=== PATIENT | female | born 1950 | race Caucasian/White ===

== ENCOUNTER 2017-05-17 17:44 | Emergency (ER) | payer MEDICARE, OTHER, SELFPAY ==
[2017-05-17 17:47] VITALS: BP 142/95; PULSE 117; RESP 24; TEMP 37.2; O2SAT 96; BMI 20.5
[2017-05-17 20:07] VITALS: BP 138/72; PULSE 87; RESP 18; O2SAT 95
[2017-05-17 20:53] LABS: Anion Gap 13 (5-15); BUN 4 mg/dL (7-18); BUN/Creat Ratio 10.1 RATIO (10-20); Chloride 95 mmol/L (98-107); EST Glomerular Filtration Rate 171 mL/min (>60); Est Glom Filt Rate - Afr Amer 207 mL/min (>60); Estimated Creatinine Clearance 43.77 ml/min; Glucose 88 mg/dL (74-106); Potassium 5.2 mmol/L (3.5-5.1); Sodium Level 129 mmol/L (136-145)
[2017-05-17 21:05] LABS: Absolute Lymphocyte Count 1.88 X10^3/ul (0.83-4.51); Basophil# 0.02 X10^3/uL; Basophil% 0.3 % (0-1); Eosinophil# 0.08 X10^3/uL; Eosinophils% 1.2 % (0-5); Hematocrit 42.8 % (37-47); Hemoglobin 15.1 g/dl (12.0-15.0); Lymphocyte # 1.88 X10^3/ul (4.0); Lymphocyte % 27.8 % (19-41); Mean Corp Hgb Conc 35.3 g/gl (32-36); Mean Corpuscular Hgb 37.7 pg (27.0-32.0); Mean Corpuscular Volume 106.7 fL (81-99); Mean Platelet Vol. 9.5 fl (6.2-12.0); Monocyte# 0.73 X10^3/uL; Monocyte% 10.8 % (0-10); Neutrophil # 4.02 X10^3/uL (2.7-7.7); Neutrophil % 59.5 % (47-70); Platelet Count 163 K/mm3 (150-450); RBC Distribution Width CV 14.3 % (11.6-14.6); RBC Distribution Width SD 55.6 fl (35.1-43.9); Red Blood Count 4.01 M/mm3 (4.2-5.4); White Blood Count 6.8 K/mm3 (4.4-11.0)
[2017-05-17 21:09] LABS: POSITIVE COUNT NO; POSITIVE DIFFERENTIAL NO; POSITIVE MORPHOLOGY NO
[2017-05-17] MEDS: 0.9% Normal Saline 1,000 ML 1000 ML IV (21:58)
--- NOTE | 2017-05-17 22:47 | ED.DCSUM_ITS ---
- ER Visit Summary Date of Service: 05/17/17 Chief Complaint: Anxiety History of Present Illness: The patient is a 66 F presenting with anxiety. She states for the past 10-12 days she has had trouble sleeping. She has been drinking alcohol in order to get to sleep. She states that she has been drinking 6 beers per day. She drinks on a daily basis but does not typically drink 6 beers per day. She states she has never been through alcohol withdrawal and has no history of seizures. She states she has not been eating well. She states she is very anxious after quitting her job in March. She states she is anxious about getting older. She denies suicidal ideation. She smokes. Denies drug use. Physical Examination: Vitals are stable. Patient is afebrile. Alert no acute distress. HEENT exam is unremarkable. Neck is supple. Lungs are clear and equal bilaterally. Heart is regular rate and rhythm. Abdomen is soft nontender nondistended. Extremities are unremarkable. Skin is warm and dry. No focal neurologic deficit. Anxious, no suicidal ideation Remainder of exam is unremarkable. Emergency Department Course and Treatment: CBC is normal. Chemistries normal except for sodium 129. Alcohol is 96. Patient was given IV fluids. She declines any further treatment in the emergency department. She was given a prescription for Vistaril. She is advised to follow-up with Dr. Peterson her primary care physician. She continues to deny any suicidal ideation. She will be discharged with her family. She states that she does not want detox at this time. Advised to return to the ED for worsening complaints. Disposition: Discharge home Impression: Anxiety, alcohol intoxication This note was generated with [employer] dictation software. It may contain incorrect words, spelling, and punctuation that were not noted in review of the chart prior to signing ED Disposition - Plan for ED Patient: Chief Complaint: Anxiety Referrals: Jose Peterson MD [Primary Care Provider] -
--- NOTE | 2017-05-17 22:47 | ED.DEP ---
ED Disposition - Plan for ED Patient: Chief Complaint: Anxiety Instructions: ED Insomnia, Understanding Generalized Anxiety Disorder (MELINDA) Prescriptions: HydrOXYzine TREVIN [Vistaril] 25 mg PO TID PRN PRN #10 capsule PRN Reason: Anxiety Referrals: Jose Peterson MD [Primary Care Provider] -
[2017-05-17 22:59] VITALS: PULSE 110; RESP 16; O2SAT 99
== END 2017-05-17 23:01 | disposition home or self-care (01) ==
LOC: ED 20:40
PROVIDERS: Emergency Provider Emergency Medicine; Family Provider Family Medicine; PCP Family Medicine
DX: F41.9 Anxiety disorder, unspecified (principal); F10.129 Alcohol abuse with intoxication, unspecified; Y90.4 Blood alcohol level of 80-99 mg/100 ml; F17.200 Nicotine dependence, unspecified, uncomplicated
CPT/HCPCS: 80048; 80320; 85025; 96360; 99285; J7030; A4216; G0480

== ENCOUNTER 2017-07-23 19:02 | Inpatient (IN) | payer MEDICARE, OTHER, SELFPAY ==
[2017-07-23] VITALS (8 sets, daily range): BP systolic 152–191; BP diastolic 86–97; PULSE 98–114; RESP 18–23; TEMP 36.7–36.8; O2SAT 94–98; BMI 20.1
--- NOTE | 2017-07-23 19:10 | ED.RN ---
PER PT SHE TAKES NO MEDICATION, PER PT SON DENIA SHE IS SUPPOSE TO TAKE MEDICATIONS BUT DOES NOT
--- NOTE | 2017-07-23 19:13 | CT_ITS ---
STUDY: CT BRAIN WITHOUT CONTRAST REASON FOR EXAM: Female, 67 years old. FALL, DENIES NECK PAIN RADIATION DOSAGE (If Supplied By Facility): CTDIvol = ( 44.99 ) mGy, DLP = ( 829.85 ) mGycm TECHNIQUE: Transaxial CT imaging of the brain was performed without administration of intravenous contrast material. COMPARISON: 2.16 FINDINGS: Normal soft tissue structures. Normal calvarium. There are calcifications around the carotid artery. These are noted in the cavernous carotid arteries. There is mild cerebral atrophy with widening of the extra-axial spaces and ventricular dilatation. There are areas of decreased attenuation within the white matter tracts of the supratentorial brain, consistent with microvascular disease changes. Normal basal ganglia and thalami. Normal brainstem. There is mild cerebellar atrophy. There is no intracranial hemorrhage. There are no findings of an acute ischemic infarction. Normal visualized paranasal sinuses. CT/Brain/Head without Contrast IMPRESSION: Chronic involutional changes of the brain. There are no acute findings. Electronically Signed: Zane Bowser MD at 20:23 EDT , Service support ,
--- NOTE | 2017-07-23 19:14 | CT_ITS ---
EXAM: CT SPINE - CERVICAL WITHOUT IV REASON FOR EXAM: Female, 67 years old. FALL, DENIES NECK PAIN RADIATION DOSAGE (If Supplied By Facility): CTDIvol = ( 19.65 ) mGy, DLP = ( 396.27 ) mGycm TECHNIQUE: Multiplanar images were obtained of the cervical spine. IV contrast was not utilized. COMPARISON: None. FINDINGS: The vertebral bodies do maintain their height. The odontoid process is intact. There is no anterolisthesis or fracture. No pre-vertebral soft tissue swelling is seen. The intravertebral disc height is lost. There are scattered lymph nodes in the neck. There are degenerative changes of the osseous structures. There is bilateral facet arthropathy. There are scattered levels of foraminal stenosis. There are atherosclerotic vascular calcifications. CT/Spine Cervical without Contras IMPRESSION: Degenerative changes of the cervical spine. No acute abnormality of the spine. Electronically Signed: Zane Bowser MD at 20:21 EDT , Service support ,
--- NOTE | 2017-07-23 19:16 | ED.VISSUMM ---
- ER Visit Summary Date of Service: 07/23/17 Chief Complaint: Fall and right hip pain History of Present Illness: The patient is a 67 F who does not remember her primary care physician's name. She reports that approximately 430 this afternoon she stood up off the toilet was very lightheaded and fell. She denies any loss of consciousness. She reports that she has pain in her right hip that is 10 out of 10 in severity. She denies any neck, back, shoulder, wrist, or left hip pain. Denies any paresthesias. Physical Examination: Vitals: Stable. Afebrile. General: Unkempt. Neck: No vertebral tenderness. Full ROM without difficulty. Cleared by NEXUS criteria. Back: No vertebral tenderness. General: A&O x 3. NAD. Cardiovascular exam: Regular rate and rhythm, no murmur, rub or gallop. Respiratory exam: Chest nontender. No crepitus. Clear to auscultation bilaterally. No wheezes or stridor. Abdominal exam: Soft, nontender, nondistended, normal bowel sounds. No pain in RUQ or LUQ specifically. No peritoneal signs. Extremity: Severe pain with palpation of her right greater trochanter. Pain with any range of motion of her leg. Test Results: G is sinus at [address] changes. However, she has T-wave inversions in leads V4 to V6 that are a change from April 2015. Alcohol level was 56. CPK is 37. Chem-7 is more for potassium at 2.9, BUN of 5, creatinine 0.35. CBC is marked for 7 neutrophils 74 lymphs lites of 18. Right hip x-ray shows an intertrochanteric fracture. Chest x-ray shows cardiomegaly and chronic changes. CT brain shows no acute disease. CT C-spine shows degenerative changes and no acute disease. Emergency Department Course and Treatment: Patient had an IV placed. She was given morphine and Phenergan IV. Patient continued to complain of pain. She was given dose of Dilaudid IV. She is given K-Dur p.o. Treatment Plan: The patient was discussed with Dr. Leonard and Dr. Gifford. She will be admitted to the hospital for further evaluation and treatment. Disposition: Admitted in improved condition. Impression: 1. Right hip fracture. 2. Hypokalemia. 3. Alcoholism. This note was generated with Dragon dictation software. It may contain incorrect words, spelling, and punctuation that were not noted in review of the chart prior to signing ED Disposition - Plan for ED Patient: Chief Complaint: Fall Referrals: Jose Peterson MD [Primary Care Provider] -
[2017-07-23] MEDS: proMETHazine 25 MG/ML Syringe 6.25 MG IV (19:27)
[2017-07-23] MEDS: Morphine 4 MG/ML Syringe IV (19:29)
[2017-07-23] MEDS: 0.9% Normal Saline 1,000 ML 1000 ML IV (19:37)
[2017-07-23 19:40] LABS: Absolute Lymphocyte Count 1.65 X10^3/ul (0.83-4.51); Absolute Neutrophil Count 6.7 X10^3/uL (2.0-7.7); Basophil# 0.02 X10^3/uL; Basophil% 0.2 % (0-1); Eosinophil# 0.03 X10^3/uL; Eosinophils% 0.3 % (0-5); Hematocrit 39.1 % (37-47); Hemoglobin 13.3 g/dl (12.0-15.0); Lymphocyte # 1.65 X10^3/ul (4.0); Lymphocyte % 18.1 % (19-41); Mean Corpuscular Hgb 38.9 pg (27.0-32.0); Mean Corpuscular Volume 114.3 fL (81-99); Mean Platelet Vol. 9.5 fl (6.2-12.0); Monocyte# 0.69 X10^3/uL; Monocyte% 7.6 % (0-10); Neutrophil # 6.69 X10^3/uL (2.7-7.7); Neutrophil % 73.5 % (47-70); Platelet Count 225 K/mm3 (150-450); RBC Distribution Width CV 13.7 % (11.6-14.6); RBC Distribution Width SD 57.2 fl (35.1-43.9); Red Blood Count 3.42 M/mm3 (4.2-5.4); White Blood Count 9.1 K/mm3 (4.4-11.0)
[2017-07-23 19:43] LABS: POSITIVE COUNT NO; POSITIVE DIFFERENTIAL NO; POSITIVE MORPHOLOGY NO
[2017-07-23 19:55] LABS: Anion Gap 9 (5-15); BUN 5 mg/dL (7-18); BUN/Creat Ratio 14.4 RATIO (10-20); Calcium,Total 8.5 mg/dL (8.5-10.1); Chloride 104 mmol/L (98-107); Creatinine, Serum 0.35 mg/dL (0.55-1.02); EST Glomerular Filtration Rate 199 mL/min (>60); Est Glom Filt Rate - Afr Amer 240 mL/min (>60); Glucose 104 mg/dL (74-106); Potassium 2.9 mmol/L (3.5-5.1); Sodium Level 137 mmol/L (136-145)
--- NOTE | 2017-07-23 20:00 | RAD_ITS ---
STUDY: X-RAY - PELVIS AND RIGHT HIP REASON FOR EXAM: Female, 67 years old. PATIENT FELL. PAIN ENTIRE RIGHT HIP. TECHNIQUE: Radiological exam, hip, unilateral, with pelvis when performed; 2 or 3 views. COMPARISON: None. FINDINGS: There is a non-specific bowel gas pattern. Normal visualized soft tissue structures. Degenerative findings of the hips. Normal bilateral iliac wings, sacroiliac joints and visualized sacrum. Normal bilateral superior and inferior pubic rami. Normal pubic symphysis. Normal bilateral ischial tuberosities. There are atherosclerotic vascular calcifications. Comminuted slightly impacted right intertrochanteric fracture. There is no dislocation. There is osteoarthritic spur formation of the acetabular rim. There is mild articular joint space narrowing of the hip. RAD/Hip 2-3 Views with Pelvis IMPRESSION: Comminuted slightly impacted right intertrochanteric fracture. Electronically Signed: Zane Bowser MD at 20:44 EDT , Service support ,
--- NOTE | 2017-07-23 20:02 | RAD_ITS ---
STUDY: X-RAY CHEST REASON FOR EXAM: Female, 67 years old. PATIENT FELL. PAIN ENTIRE RIGHT HIP. TECHNIQUE: Single frontal view of the chest. COMPARISON: 2 FINDINGS: Chronic appearing increased interstitial lung markings. There is an infiltrate in the right mid lung suggestive of a focal pneumonia. There is no demonstrated pleural abnormality. Enlarged heart size. Normal mediastinum and kylee. Normal visualized pulmonary arteries. There is atherosclerotic calcification of the aortic arch with tortuosity. There are diffuse degenerative changes of the visualized thoracic spine. There is degenerative osteoarthritis of the bilateral shoulders. There is no demonstrated abnormality of the visualized soft tissue structures of the upper abdomen. RAD/Chest 1 View (Portable) IMPRESSION: There is an infiltrate in the right mid lung suggestive of a focal pneumonia. Electronically Signed: Zane Bowser MD at 20:46 EDT , Service support ,
[2017-07-23 20:06] LABS: CPK Total, Creatine Kinase 37 U/L (26-192)
[2017-07-23] MEDS: HYDROmorphone 1 MG/ML Syringe IV (20:16)
--- NOTE | 2017-07-23 20:39 | EKG12_ITS ---
Test Reason : ADMIT Blood Pressure : / mmHG Vent. Rate : 099 BPM Atrial Rate : 099 BPM P-R Int : 110 ms QRS Dur : 086 ms QT Int : 346 ms P-R-T Axes : 000 032 246 degrees QTc Int : 444 ms Sinus rhythm with short CA Septal infarct ,age undetermined ST & T wave abnormality, consider lateral ischemia Abnormal ECG Confirmed by MAYKEL SHELTON, BERENICE ([id number]), index editor AYAAN ROBBINS ([id number]) on 07/26/2017 2:05:14 PM Referred By: CHARISSE Confirmed By:BERENICE BRAR MD
--- NOTE | 2017-07-23 20:41 | PCM.HP.STD ---
Problem List (1) Closed right hip fracture Status: Acute (2) CHRONIC ALCOHOL USE DEPENDENCE Status: Acute (3) Alcoholic hepatitis Status: Chronic (4) TIA (transient ischemic attack) Status: Resolved (5) Acute on recurrent fall Status: Acute History of Present Illness Date of Admission: 07/23/17 Chief Complaint: Patient fell down and right hip fracture The patient is a 67 year old F with chronic alcohol use since teenage, about 3 bottles of beer daily, coronary artery disease status post 1 stents, last one in 2010 came to ER after she fell down. As per the son, she tried to stood up from the toilet felt very lightheaded and fell down. She felt severe pain over right hip and was not able to move. She denies any neck, back pain or hitting head. She denies loss of consciousness. Patient also has a history of recurrent fall and falls about once in 3 months. She denies history of alcohol-related withdrawal symptoms during seizure and said she can remain 10 days without alcohol and does not get alcohol withdrawal symptoms. In ED, her initial assessment was consistent with right hip fracture which later on revealed in right hip fracture showing intertrochanteric fracture. CT head and C-spine does not show acute change. EKG shows sinus rhythm T-wave inversion in V2 to V4 with old septal infarct. Previous EKG in 04/2015 did not had T-wave inversion. Patient denies chest pain, shortness of breath or palpitation. Initial lab work in ER was significant of K2.9. Alcohol level 56. [] Past Medical History Past Medical History (Chronic Problems): Chronic Problems Alcoholic hepatitis (Chronic) Alcohol abuse (Chronic) CAD (coronary artery disease) (Chronic) Status post stent Allergies No Known Allergies Allergy (Verified 07/23/17 19:08) Home Medications: Ambulatory Orders Medication Instructions Recorded NK [NK] 07/23/17 Surgical History: hysterectomy, - - cad with stent Smoking Status: Current every day smoker - *Family History Maternal History Items: - - does not know Paternal History Items: - - does not know Review of Systems Constitutional: Reports: Weakness. Denies: Chills, Fever, Weight Change HEENT: Denies: Head Aches, Sinus Congestion, Sinus Drainage Cardiovascular: Denies: Chest Pain, Palpitations Respiratory: Denies: Cough, Shortness of breath at rest, Sputum production Gastrointestinal: Denies: Abdominal Pain, Nausea, Vomiting Genitourinary: Denies: Dysuria Musculoskeletal: Reports: Joint Pain, Joint stiffness, Joint swelling, Joint Tenderness Skin: Denies: Rash, Wounds Neurological: Denies: Numbness, Tingling, Focal weakness Psychiatric: Reports: Anxiety. Denies: Depression, Homicidal Ideations, Suicidal Ideations Hematologic/ Lymphatic: Denies: Easy Bruising, Easy Bleeding VTE Information - Inpt Only VTE Present on Admission: No VTE Mechan Device Prophylaxis: Knee High JUANCARLOS Hose VTE Pharm Prophylaxis ordered?: Yes Patient Problems: Active and Suspected Problems Closed right hip fracture (Acute) CHRONIC ALCOHOL USE DEPENDENCE (Acute) Acute on recurrent fall (Acute) - Physical Exam General: Alert, Oriented x3, Cooperative, Lethargic HEENT: Atraumatic, PERRLA, EOMI, Normocephalic Oral: Dry Mucosa, - - No oral or pharyngeal inflammation/erythema Neck: Supple, No JVD, Negative Carotid Bruits Lungs: Clear to auscultation, Normal air movement, No rhonchi, No wheeze, No rales Cardiovascular: Regular rate, Regular Rhythm, Normal S1, Normal S2, No murmurs Abdomen: Bowel Sounds Present, Soft, Non Tender, Hepatomegaly - Liver enlarged about 2 cm from right subcostal margin, Tender - Mild tender hepatomegaly Extremities: No edema, Capillary Refill Less than 3 Seconds Skin: No rashes, No breakdown Musculoskeletal: Arthritic Changes, Tenderness - Over right hip joint Right lower extremity is flexed and externally rotated Neurological: Cranial nerves II-XII grossly intact Psych/Mental Status: Normal Affect, Appropriate Vital Signs Temp Pulse Resp BP Pulse Ox 98.1 F 102 H 23 H 175/97 H 94 07/23/17 19:04 07/23/17 20:19 07/23/17 20:19 07/23/17 20:19 07/23/17 20:19 Oxygen Delivery Method Room Air Weight: 110 lb Body Mass Index (BMI) 20.1 Finger Stick Blood Glucose 95 Laboratory Tests Past 24 Hrs 07/23/17 07/23/17 07/23/17 19:30 19:30 19:30 WBC 9.1 RBC 3.42 L Hgb 13.3 Hct 39.1 MCV 114.3 H MCH 38.9 H MCHC 34.0 RDW 13.7 RDW Differential 57.2 H Plt Count 225 MPV 9.5 Immature Gran % (Auto) 0.300 Neut % (Auto) 73.5 H Lymph % (Auto) 18.1 L Waldo % (Auto) 7.6 Eos % (Auto) 0.3 Baso % (Auto) 0.2 Absolute Neuts (auto) 6.7 Absolute Lymphs (auto) 1.65 Total Counted Not Reportable Sodium 137 Potassium 2.9 L Chloride 104 Carbon Dioxide 24.0 Anion Gap 9 BUN 5 L Creatinine 0.35 L Estim Creat Clear Calc 43.00 Est GFR (MDRD) Af Amer 240 Est GFR (MDRD) Non-Af 199 BUN/Creatinine Ratio 14.4 Glucose 104 Calcium 8.5 Total Creatine Kinase Ethyl Alcohol 56.0 07/23/17 19:30 WBC RBC Hgb Hct MCV MCH MCHC RDW RDW Differential Plt Count MPV Immature Gran % (Auto) Neut % (Auto) Lymph % (Auto) Waldo % (Auto) Eos % (Auto) Baso % (Auto) Absolute Neuts (auto) Absolute Lymphs (auto) Total Counted Sodium Potassium Chloride Carbon Dioxide Anion Gap BUN Creatinine Estim Creat Clear Calc Est GFR (MDRD) Af Amer Est GFR (MDRD) Non-Af BUN/Creatinine Ratio Glucose Calcium Total Creatine Kinase 37 Ethyl Alcohol Assessment/Plan Active and Suspected Problems Closed right hip fracture (Acute) CHRONIC ALCOHOL USE DEPENDENCE (Acute) Acute on recurrent fall (Acute) The patient is a 67 year old F with chronic alcohol use since teenage, about 3 bottles of beer daily, coronary artery disease status post 1 stents, last one in 2010 came to ER after she fell down. As per the son, she tried to stood up from the toilet felt very lightheaded and fell down. She felt severe pain over right hip and was not able to move. She denies any neck, back pain or hitting head. She denies loss of consciousness. Patient also has a history of recurrent fall and falls about once in 3 months. She denies history of alcohol-related withdrawal symptoms during seizure and said she can remain 10 days without alcohol and does not get alcohol withdrawal symptoms. In ED, her initial assessment was consistent with right hip fracture which later on revealed in right hip fracture showing intertrochanteric fracture. CT head and C-spine does not show acute change. EKG shows sinus rhythm at 99 bpm T-wave inversion in V2 to V4 with old septal infarct. Previous EKG in 04/2015 did not had T-wave inversion. Patient denies chest pain, shortness of breath or palpitation. Initial lab work in ER was significant of K2.9. Alcohol level 56. [ 1. Acute on recurrent fall resulting into mechanical right hip closed comminuted slightly impacted intertrochanteric fracture: The patient is being admitted on PCU floor because of T-wave inversion changes in EKG. ER physician Dr. Castanon discussed with Dr. Gifford who agreed to see the patient tomorrow. Pain control. Right hip x-ray shows comminuted slightly impacted right intertrochanteric fracture. 2. EKG changes with history of coronary artery disease status post stent in 2010: As mentioned above T-wave inversion in lateral leads. Serial cardiac enzymes. 2D echo ordered. Last echo in April 2015 shows segmental dysfunction with preserved EF, 55%; hypokinetic posterior basal, inferior basal mid inferior and mid lateral. Normal RV size and systolic function. Normal LA. Right atrium mildly enlarged. No significant valvular abnormality set mild diffuse mitral valve thickening and trivial MR. patient is not on any home medication. Started on aspirin, metoprolol, lisinopril and a statin. 3. Chronic alcohol use with possible alcoholic hepatitis: Mild tender hepatomegaly about 2 cm below right costal margin. LFT ordered. Viral hepatitis ordered. Alcohol level elevated. On multivitamin, folic acid and thiamine. On Ativan based CIWA protocol 4. Other chronic comorbidities include hypertension, history of TIA for which she was admitted in April 2015. Blood pressure is high 191/96 in ER. Heart rate 104/min. Started on lisinopril DVT prophylaxis: On heparin 500 subcu units twice daily. Hold heparin prior to surgery. Bilateral JUANCARLOS hose. Laboratory Results 07/23/17 19:30: WBC 9.1, RBC 3.42 L, Hgb 13.3, Hct 39.1, MCV 114.3 H, MCH 38.9 H, MCHC 34.0, RDW 13.7, RDW Differential 57.2 H, Plt Count 225, MPV 9.5, Immature Gran % (Auto) 0.300, Neut % (Auto) 73.5 H, Lymph % (Auto) 18.1 L, Waldo % (Auto) 7.6, Eos % (Auto) 0.3, Baso % (Auto) 0.2, Absolute Neuts (auto) 6.7, Absolute Lymphs (auto) 1.65, Total Counted Not Reportable 07/23/17 19:30: Sodium 137, Potassium 2.9 L, Chloride 104, Carbon Dioxide 24.0, Anion Gap 9, BUN 5 L, Creatinine 0.35 L, Estim Creat Clear Calc 43.00, Est GFR (MDRD) Af Amer 240, Est GFR (MDRD) Non-Af 199, BUN/Creatinine Ratio 14.4, Glucose 104, Calcium 8.5 07/23/17 19:30: Ethyl Alcohol 56.0 07/23/17 19:30: Total Creatine Kinase 37 Clinical Impression(s) from Imaging Studies Brain CT 07/23/17 19:13 IMPRESSION: Chronic involutional changes of the brain. There are no acute findings. Electronically Signed: Zane Bowser MD at 20:23 EDT , Service support , Cervical Spine CT 07/23/17 19:14 IMPRESSION: Degenerative changes of the cervical spine. No acute abnormality of the spine. Electronically Signed: Zane Bowser MD at 20:21 EDT , Service support , Hip/Pelvis X-Ray 07/23/17 20:00 IMPRESSION: Comminuted slightly impacted right intertrochanteric fracture. Electronically Signed: Zane Bowser MD at 20:44 EDT , Service support , Chest X-Ray 07/23/17 20:02 IMPRESSION: There is an infiltrate in the right mid lung suggestive of a focal pneumonia. Electronically Signed: Zane Bowser MD at 20:46 EDT , Service support , Total time spent in the care including review of medical records, labs and assessment and plan and discussion with the patient and his son about 50 minutes Code Visit Inpatient E&M: 02799 Init Hosp L3
--- NOTE | 2017-07-23 20:51 | HP.PCM_ITS ---
Problem List (1) Closed right hip fracture Status: Acute (2) CHRONIC ALCOHOL USE DEPENDENCE Status: Acute (3) Alcoholic hepatitis Status: Chronic (4) TIA (transient ischemic attack) Status: Resolved (5) Acute on recurrent fall Status: Acute History of Present Illness Date of Admission: 07/23/17 Chief Complaint: Patient fell down and right hip fracture The patient is a 67 year old F with chronic alcohol use since teenage, about 3 bottles of beer daily, coronary artery disease status post 1 stents, last one in 2010 came to ER after she fell down. As per the son, she tried to stood up from the toilet felt very lightheaded and fell down. She felt severe pain over right hip and was not able to move. She denies any neck, back pain or hitting head. She denies loss of consciousness. Patient also has a history of recurrent fall and falls about once in 3 months. She denies history of alcohol- related withdrawal symptoms during seizure and said she can remain 10 days without alcohol and does not get alcohol withdrawal symptoms. In ED, her initial assessment was consistent with right hip fracture which later on revealed in right hip fracture showing intertrochanteric fracture. CT head and C-spine does not show acute change. EKG shows sinus rhythm T-wave inversion in V2 to V4 with old septal infarct. Previous EKG in 04/2015 did not had T-wave inversion. Patient denies chest pain, shortness of breath or palpitation. Initial lab work in ER was significant of K2.9. Alcohol level 56. [] Past Medical History Past Medical History (Chronic Problems): Chronic Problems Alcoholic hepatitis (Chronic) Alcohol abuse (Chronic) CAD (coronary artery disease) (Chronic) Status post stent Allergies No Known Allergies Allergy (Verified 07/23/17 19:08) Home Medications: Ambulatory Orders Medication Instructions Recorded NK [NK] 07/23/17 Surgical History: hysterectomy, - - cad with stent Smoking Status: Current every day smoker - *Family History Maternal History Items: - - does not know Paternal History Items: - - does not know Review of Systems Constitutional: Reports: Weakness. Denies: Chills, Fever, Weight Change HEENT: Denies: Head Aches, Sinus Congestion, Sinus Drainage Cardiovascular: Denies: Chest Pain, Palpitations Respiratory: Denies: Cough, Shortness of breath at rest, Sputum production Gastrointestinal: Denies: Abdominal Pain, Nausea, Vomiting Genitourinary: Denies: Dysuria Musculoskeletal: Reports: Joint Pain, Joint stiffness, Joint swelling, Joint Tenderness Skin: Denies: Rash, Wounds Neurological: Denies: Numbness, Tingling, Focal weakness Psychiatric: Reports: Anxiety. Denies: Depression, Homicidal Ideations, Suicidal Ideations Hematologic/ Lymphatic: Denies: Easy Bruising, Easy Bleeding VTE Information - Inpt Only VTE Present on Admission: No VTE Mechan Device Prophylaxis: Knee High JUANCARLOS Hose VTE Pharm Prophylaxis ordered?: Yes Patient Problems: Active and Suspected Problems Closed right hip fracture (Acute) CHRONIC ALCOHOL USE DEPENDENCE (Acute) Acute on recurrent fall (Acute) - Physical Exam General: Alert, Oriented x3, Cooperative, Lethargic HEENT: Atraumatic, PERRLA, EOMI, Normocephalic Oral: Dry Mucosa, - - No oral or pharyngeal inflammation/erythema Neck: Supple, No JVD, Negative Carotid Bruits Lungs: Clear to auscultation, Normal air movement, No rhonchi, No wheeze, No rales Cardiovascular: Regular rate, Regular Rhythm, Normal S1, Normal S2, No murmurs Abdomen: Bowel Sounds Present, Soft, Non Tender, Hepatomegaly - Liver enlarged about 2 cm from right subcostal margin, Tender - Mild tender hepatomegaly Extremities: No edema, Capillary Refill Less than 3 Seconds Skin: No rashes, No breakdown Musculoskeletal: Arthritic Changes, Tenderness - Over right hip joint Right lower extremity is flexed and externally rotated Neurological: Cranial nerves II-XII grossly intact Psych/Mental Status: Normal Affect, Appropriate Vital Signs Temp Pulse Resp BP Pulse Ox 98.1 F 102 H 23 H 175/97 H 94 07/23/17 19:04 07/23/17 20:19 07/23/17 20:19 07/23/17 20:19 07/23/17 20:19 Oxygen Delivery Method Room Air Weight: 110 lb Body Mass Index (BMI) 20.1 Finger Stick Blood Glucose 95 Laboratory Tests Past 24 Hrs 07/23/17 07/23/17 07/23/17 19:30 19:30 19:30 WBC 9.1 RBC 3.42 L Hgb 13.3 Hct 39.1 MCV 114.3 H MCH 38.9 H MCHC 34.0 RDW 13.7 RDW Differential 57.2 H Plt Count 225 MPV 9.5 Immature Gran % (Auto) 0.300 Neut % (Auto) 73.5 H Lymph % (Auto) 18.1 L [place] % (Auto) 7.6 Eos % (Auto) 0.3 Baso % (Auto) 0.2 Absolute Neuts (auto) 6.7 Absolute Lymphs (auto) 1.65 Total Counted Not Reportable Sodium 137 Potassium 2.9 L Chloride 104 Carbon Dioxide 24.0 Anion Gap 9 BUN 5 L Creatinine 0.35 L Estim Creat Clear Calc 43.00 Est GFR (MDRD) Af Amer 240 Est GFR (MDRD) Non-Af 199 BUN/Creatinine Ratio 14.4 Glucose 104 Calcium 8.5 Total Creatine Kinase Ethyl Alcohol 56.0 07/23/17 19:30 WBC RBC Hgb Hct MCV MCH MCHC RDW RDW Differential Plt Count MPV Immature Gran % (Auto) Neut % (Auto) Lymph % (Auto) [place] % (Auto) Eos % (Auto) Baso % (Auto) Absolute Neuts (auto) Absolute Lymphs (auto) Total Counted Sodium Potassium Chloride Carbon Dioxide Anion Gap BUN Creatinine Estim Creat Clear Calc Est GFR (MDRD) Af Amer Est GFR (MDRD) Non-Af BUN/Creatinine Ratio Glucose Calcium Total Creatine Kinase 37 Ethyl Alcohol Assessment/Plan Active and Suspected Problems Closed right hip fracture (Acute) CHRONIC ALCOHOL USE DEPENDENCE (Acute) Acute on recurrent fall (Acute) The patient is a 67 year old F with chronic alcohol use since teenage, about 3 bottles of beer daily, coronary artery disease status post 1 stents, last one in 2010 came to ER after she fell down. As per the son, she tried to stood up from the toilet felt very lightheaded and fell down. She felt severe pain over right hip and was not able to move. She denies any neck, back pain or hitting head. She denies loss of consciousness. Patient also has a history of recurrent fall and falls about once in 3 months. She denies history of alcohol- related withdrawal symptoms during seizure and said she can remain 10 days without alcohol and does not get alcohol withdrawal symptoms. In ED, her initial assessment was consistent with right hip fracture which later on revealed in right hip fracture showing intertrochanteric fracture. CT head and C-spine does not show acute change. EKG shows sinus rhythm at 99 bpm T -wave inversion in V2 to V4 with old septal infarct. Previous EKG in 04/2015 did not had T-wave inversion. Patient denies chest pain, shortness of breath or palpitation. Initial lab work in ER was significant of K2.9. Alcohol level 56. [ 1. Acute on recurrent fall resulting into mechanical right hip closed comminuted slightly impacted intertrochanteric fracture: The patient is being admitted on PCU floor because of T-wave inversion changes in EKG. ER physician Dr. Castanon discussed with Dr. Gifford who agreed to see the patient tomorrow. Pain control. Right hip x-ray shows comminuted slightly impacted right intertrochanteric fracture. 2. EKG changes with history of coronary artery disease status post stent in 2010: As mentioned above T-wave inversion in lateral leads. Serial cardiac enzymes. 2D echo ordered. Last echo in April 2015 shows segmental dysfunction with preserved EF, 55%; hypokinetic posterior basal, inferior basal mid inferior and mid lateral. Normal RV size and systolic function. Normal LA. Right atrium mildly enlarged. No significant valvular abnormality set mild diffuse mitral valve thickening and trivial MR. patient is not on any home medication. Started on aspirin, metoprolol, lisinopril and a statin. 3. Chronic alcohol use with possible alcoholic hepatitis: Mild tender hepatomegaly about 2 cm below right costal margin. LFT ordered. Viral hepatitis ordered. Alcohol level elevated. On multivitamin, folic acid and thiamine. On Ativan based CIWA protocol 4. Other chronic comorbidities include hypertension, history of TIA for which she was admitted in April 2015. Blood pressure is high 191/96 in ER. Heart rate 104/min. Started on lisinopril DVT prophylaxis: On heparin 500 subcu units twice daily. Hold heparin prior to surgery. Bilateral JUANCARLOS hose. Laboratory Results 07/23/17 19:30: WBC 9.1, RBC 3.42 L, Hgb 13.3, Hct 39.1, MCV 114.3 H, MCH 38.9 H , MCHC 34.0, RDW 13.7, RDW Differential 57.2 H, Plt Count 225, MPV 9.5, Immature Gran % (Auto) 0.300, Neut % (Auto) 73.5 H, Lymph % (Auto) 18.1 L, [place] % (Auto) 7.6, Eos % (Auto) 0.3, Baso % (Auto) 0.2, Absolute Neuts (auto) 6.7, Absolute Lymphs (auto) 1.65, Total Counted Not Reportable 07/23/17 19:30: Sodium 137, Potassium 2.9 L, Chloride 104, Carbon Dioxide 24.0, Anion Gap 9, BUN 5 L, Creatinine 0.35 L, Estim Creat Clear Calc 43.00, Est GFR ( MDRD) Af Amer 240, Est GFR (MDRD) Non-Af 199, BUN/Creatinine Ratio 14.4, Glucose 104, Calcium 8.5 07/23/17 19:30: Ethyl Alcohol 56.0 07/23/17 19:30: Total Creatine Kinase 37 Clinical Impression(s) from Imaging Studies Brain CT 07/23/17 19:13 IMPRESSION: Chronic involutional changes of the brain. There are no acute findings. Electronically Signed: Zane Bowser MD at 20:23 EDT , Service support , Cervical Spine CT 07/23/17 19:14 IMPRESSION: Degenerative changes of the cervical spine. No acute abnormality of the spine. Electronically Signed: Zane Bowser MD at 20:21 EDT , Service support , Hip/Pelvis X-Ray 07/23/17 20:00 IMPRESSION: Comminuted slightly impacted right intertrochanteric fracture. Electronically Signed: Zane Bowser MD at 20:44 EDT , Service support , Chest X-Ray 07/23/17 20:02 IMPRESSION: There is an infiltrate in the right mid lung suggestive of a focal pneumonia. Electronically Signed: Zane Bowser MD at 20:46 EDT , Service support , Total time spent in the care including review of medical records, labs and assessment and plan and discussion with the patient and his son about 50 minutes Code Visit Inpatient E&M: 17790 Init Hosp L3
[2017-07-23 22:29] LABS: Prothrombin Time (Protime)PT. 12.8 SECONDS (11.7-14.9)
[2017-07-23 22:39] LABS: Phosphorus 2.6 mg/dL (2.5-4.9)
[2017-07-23 22:40] LABS: Lipase 158 U/L (73-393)
[2017-07-23 22:42] LABS: AST(SGOT) 80 U/L (15-37); Alanine Aminotransfer ALT/SGPT 73 U/L (13-56); Albumin, Serum 2.6 g/dL (3.2-5.0); Alkaline Phosphatase 182 U/L (45-117); Bilirubin, Direct 0.28 mg/dL (0.00-0.30); Globulin 3.9 g/dL (2.2-4.2); Magnesium 1.7 mg/dL (1.6-2.6); Protein, Total 6.5 g/dL (6.4-8.2)
--- NOTE | 2017-07-23 23:18 | EKG12_ITS ---
Test Reason : EKG CHANGES Blood Pressure : / mmHG Vent. Rate : 115 BPM Atrial Rate : 115 BPM P-R Int : 128 ms QRS Dur : 082 ms QT Int : 316 ms P-R-T Axes : -27 012 180 degrees QTc Int : [address] & T wave abnormality, consider lateral ischemia Abnormal ECG When compared with ECG of 24-MAY-2015 00:36, Non-specific change in ST segment in Anterior leads T wave inversion now evident in Lateral leads Confirmed by MAYKEL SHELTON, BERENICE ([id number]), map editor AYAAN ROBBINS ([id number]) on 07/29/2017 3:47:44 PM Referred By: CHARISSE Confirmed By:BERENICE BRAR MD
[2017-07-23 23:30] LABS: BNP,B-Type NATRIURETIC PEPTIDE 108.9 pg/mL (0-100)
[2017-07-23] MEDS: traZODone 50 MG Tablet PO (23:32)
[2017-07-23] MEDS: Atorvastatin Calcium 40 MG Tablet PO (23:33)
[2017-07-23] MEDS: Metoprolol Tartrate 25 MG Tablet PO (23:35)
[2017-07-23] MEDS: Aspirin 81 MG TAB.CHEW 324 MG PO (23:39)
[2017-07-23] MEDS: Morphine 2 MG/ML Syringe IV (23:45)
[2017-07-23] MEDS: Lisinopril 10 MG Tablet PO (23:46)
[2017-07-23] MEDS: cloNIDine HCl 0.2 MG Tablet PO (23:46)
[2017-07-23] MEDS: 0.9% NaCl Peripheral Flush Adult/Peds IV (23:47)
[2017-07-24] VITALS (15 sets, daily range): BP systolic 84–115; BP diastolic 48–65; PULSE 60–85; RESP 16–20; TEMP 36.5–37.2; O2SAT 94–98; BMI 20.2
[2017-07-24] MEDS: oxyCODONE 5 MG Tablet PO ×3 (00:51→12:20)
[2017-07-24 01:37] LABS: Color, Urine Yellow (Yellow); Glucose, Dipstick Normal (Normal); Ketone-Dipstick Negative (Negative); Leukocyte Esterase-Dipstick Negative /ul (Negative); Nitrite-Dipstick Negative (Negative); Occult Blood-Urine Negative /ul (Negative); Protein-Dipstick Negative (Negative); Specific Gravity, Urine 1.015 (1.002-1.030); Urine Bilirubin Dipstick Negative (Negative); Urine Clarity Clear (Clear); Urine Urobilinogen Normal (Normal)
[2017-07-24] MEDS: Ibuprofen 600 MG Tablet PO ×2 (01:43→10:13)
[2017-07-24 02:26] LABS: Amphetamine Urine VISTA NEGATIVE (<1000 ng/mL); Barbiturate Urine VISTA NEGATIVE (< 200 ng/mL); Benzodiazepine Urine VISTA NEGATIVE (< 200 ng/mL); Cocaine Urine VISTA NEGATIVE (< 300 ng/mL); Ecstacy Urine VISTA NEGATIVE (< 500 ng/mL); Methadone Urine VISTA NEGATIVE (< 300 ng/mL); PCP Urine VISTA NEGATIVE (< 25 ng/mL); THC Urine VISTA NEGATIVE (< 50 ng/mL); Vista UDS pH Range 6
--- NOTE | 2017-07-24 05:55 | ECHOD_ITS ---
Reason For Study: EKG changes Procedure This was a 2D Doppler, Color Flow transthoracic echocardiogram. Exam performed in department. Left Ventricle Normal size and thickness. The estimated ejection fraction is 55 %. Stage 1 diastolic dysfunction. Posterior-Basal: Mildly hypokinetic. Infero-Basal: Mildly hypokinetic. Lateral-Basal: Mildly hypokinetic. Right Ventricle Normal size and thickness. Normal systolic function. Atria Normal left atrium. Normal right atrium. Normal atrial septum. Mitral Valve The mitral valve is structurally normal. No prolapse or stenosis seen. Trivial mitral valve insufficiency. Tricuspid Valve Normal tricuspid valve. Mild (1+) tricuspid valve insufficiency. Right ventricular systolic pressure estimated to be 36 mmHg. Aortic Valve Normal aortic valve. Trisinus/trileaflet aortic valve. Pulmonic Valve The pulmonic valve is not well visualized. Great Vessels Normal aortic root. Normal arch. Normal inferior vena cava. Inferior vena cava collapse with sniff. Pericardium/Pleural No pericardial effusion. MMode/2D Measurements & Calculations LVIDd: 4.2 cm IVSd: 1.2 cm Ao root diam: 3.2 cm LVIDs: 3.1 cm LVPWd: 0.83 cm LA dimension: 3.3 cm RVDd: 2.6 cm FS: 26.6 % LAV(MOD-bp): 42.0 ml LA A4 area: 16.3 cm2 RA A4 area: 13.9 cm2 LAV(MOD-bp) Indexed: 28.3 ml/m2 LAV(MOD-sp2): 38.0 ml LAV(MOD-sp4): 41.5 ml Doppler Measurements & Calculations MV E max kevin: 69.5 cm/sec Lat Peak E' Kevin: 9.0 cm/sec Med Peak E' Kevin: 5.6 cm/sec MV A max kevin: 100.9 cm/sec E/E' lat: 7.7 E/E' med: 12.4 MV E/A: 0.69 Ao V2 max: 112.6 cm/sec LV V1 max: 85.8 cm/sec TR max kevin: 257.7 cm/sec Ao max P.1 mmHg LV V1 max P.9 mmHg TR max P.8 mmHg Interpretation Summary The estimated ejection fraction is 55 %. Posterior-Basal: Mildly hypokinetic Infero-Basal: Mildly hypokinetic Lateral-Basal: Mildly hypokinetic Stage 1 diastolic dysfunction. Trivial mitral valve insufficiency. Mild (1+) tricuspid valve insufficiency. Right ventricular systolic pressure estimated to be 36 mmHg. Compared to echo report dated 05/24/2015, no appreciable changes noted. Ordering Physician: Scott Leonard Referring Physician: Jose Peterson Performed By: Sruthi Vazquez RDCS
[2017-07-24 06:41] LABS: Absolute Lymphocyte Count 1.46 X10^3/ul (0.83-4.51); Absolute Neutrophil Count 4.4 X10^3/uL (2.0-7.7); Basophil# 0.04 X10^3/uL; Basophil% 0.6 % (0-1); Eosinophil# 0.04 X10^3/uL; Eosinophils% 0.6 % (0-5); Hematocrit 30.6 % (37-47); Hemoglobin 10.1 g/dl (12.0-15.0); Lymphocyte # 1.46 X10^3/ul (4.0); Lymphocyte % 21.8 % (19-41); Mean Corpuscular Hgb 39.1 pg (27.0-32.0); Mean Corpuscular Volume 118.6 fL (81-99); Mean Platelet Vol. 9.8 fl (6.2-12.0); Monocyte# 0.69 X10^3/uL; Monocyte% 10.3 % (0-10); Neutrophil # 4.44 X10^3/uL (2.7-7.7); Neutrophil % 66.3 % (47-70); Platelet Count 192 K/mm3 (150-450); RBC Distribution Width CV 13.5 % (11.6-14.6); RBC Distribution Width SD 56.5 fl (35.1-43.9); Red Blood Count 2.58 M/mm3 (4.2-5.4); White Blood Count 6.7 K/mm3 (4.4-11.0)
[2017-07-24 06:43] LABS: POSITIVE COUNT NO; POSITIVE DIFFERENTIAL NO; POSITIVE MORPHOLOGY NO
[2017-07-24 06:58] LABS: Magnesium 1.8 mg/dL (1.6-2.6)
[2017-07-24 07:16] LABS: Anion Gap 6 (5-15); BUN 8 mg/dL (7-18); BUN/Creat Ratio 23.7 RATIO (10-20); Calcium,Total 7.6 mg/dL (8.5-10.1); Chloride 112 mmol/L (98-107); Cholesterol 121 mg/dL (200); Creatinine, Serum 0.34 mg/dL (0.55-1.02); EST Glomerular Filtration Rate 206 mL/min (>60); Est Glom Filt Rate - Afr Amer 249 mL/min (>60); Estimated Creatinine Clearance 43.18 ml/min; Glucose 90 mg/dL (74-106); High Density Lipoprotein 38 mg/dL; Sodium Level 142 mmol/L (136-145); Thyroid Stim Hormone (TSH) 1.21 uIU/mL (0.358-3.74); Triglycerides 83 mg/dL; Very Low Density Lipoprotein 17 mg/dL (5-40)
[2017-07-24 07:39] LABS: Phosphorus 2.3 mg/dL (2.5-4.9)
--- NOTE | 2017-07-24 07:48 | CON.PCM_ITS ---
- Consult Date of Consult: 07/24/17 - Reason for Consult 67-year-old female who sustained a fall from standing height resulting in a right closed intertrochanteric femur fracture. Patient was admitted to the PCU last p.m. for medical clearance. Patient was found to be hypokalemic which was medically treated at this point time. Patient has a known history of stent placement to the heart and a history of alcohol abuse. Patient otherwise was a immunity ambulator. Patient denied any antecedent right hip pain. She would point to the right hip in terms of discomfort. Denies any other fevers chills nausea vomiting chest pain or shortness of breath. Objective: Patient is otherwise alert oriented ?3 in no acute distress. Appropriate eye contact and affect. Patient otherwise remains intact from L1- S1 distributions bilaterally she has +1 pulses. The EHL anterior gastrocsoleus peroneals are 5 out of 5 to the right. Patient's gross motor strength in the quad and hamstrings on the left 5 out of 5. Patient is tender to palpation across the right greater trochanter. There is no expanding hematoma currently. Patient has no adenopathy. Patient's leg is slightly shortened and she holds it in x-ray rotated position for comfort. Patient has no gross abnormalities to the left lower extremity on long bone palpation or through gentle range of motion. Patient's bilateral knee examinations remain ligamentously stable with no signs of knee effusions. Patient reports no other upper extremity issues that she is currently moving them in full symmetric range of motion in all planes is able to brush clearer surveying and release my hand without difficulty. Lab values currently pending. X-rays: Evaluated by myself with patient-patient shows a intertrochanteric femur fracture. No obvious bony abnormalities, lytic or blastic lesions could be appreciated. Assessment: Right hip closed intertrochanteric femur fracture initial encounter. History of hypokalemia and alcohol abuse. Plan: At this point time again the hypokalemia was being medically treated. Lab work is currently pending in terms of the correction level. The patient's lab values reviewed showed her to have a little bit of trending up troponin levels but discussion with the hospitalist team was that this was just some demand ischemia and was not necessarily a heart attack at this point time. I reviewed with the patient the operative procedure risks and benefits and with the plan would be for surgical intervention including time. Currently after discussion with the hospitalist team, a echocardiogram is pending. We cannot do that service during the weekends and will need to be undertaken on Tuesday. So at this point time we will go ahead and feed the patient and take her off n.p.o. status until cardiology evaluation is completed and the echocardiogram has been read and changed if she has been appropriately risk stratified. Again this was all explained to the patient at this point time. I did inform the patient that if she was felt to be medically unstable for our facility which I did not feel was likely that she could be transferred out. However at this point time will wait till pending further medical clearance and then plan for procedure tomorrow. Patient will be made n.p.o. at midnight and we will place antibiotics onto the chart. Patient was counseled consented for a right intertrochanteric femur fracture using cephalo-medullary nail technique. Patient understands risks and benefits to include damage to nerves muscles arteries and veins development of DVT PE infection or . Patient at this point time elects to proceed with intervention. I discussed also postoperative plan with the patient. I recommended in a minimum home health as the patient showed interest of going home but really more appropriately I think for her with her multiple medical comorbidities and prior higher risk stress stratification, I would recommend an inpatient snf facility versus inpatient rehab facility. Patient will need to be on alcohol withdrawal precautions in my opinion. There is any major issues please contact me.
[2017-07-24] MEDS: Morphine 2 MG/ML Syringe IV ×2 (09:22→13:41)
--- NOTE | 2017-07-24 09:55 | PCM.CONS.C ---
Problem List (1) Non-STEMI (non-ST elevated myocardial infarction) Status: Acute (2) Preoperative cardiovascular examination Status: Acute (3) CAD (coronary artery disease) Status: Chronic Comment: Status post stent Reason for Consult Date of Consultation: 07/24/17 Reason for Consultation: Preoperative risk stratification, coronary disease status post stenting, hypertension, alcohol abuse History of Present Illness: The patient is a 67 year old F, heavy alcohol user, with hypertension, hypercholesterolemia, coronary artery disease status post angioplasty and stenting after myocardial infarction in [facility] in 2010. As best I can tell patient did not have an acute event, but she cannot recall. There are no records in our [employer] computer system and apparently she had no cardiac follow-up. She has no idea who her atm servicer is. Patient denies any catheterization since then. She denies having a stress test. She continues to smoke about 1 pack per day and has done so over the past 40 years. She is a nondiabetic, never been diagnosed with COPD. She does have a history of hypertension and was previously on Lopressor, lisinopril and clonidine, but she has discontinued all of her medications including baby aspirin. She is on no cholesterol medications. Patient has had no chest pain since her initial event in 2010. Patient was admitted after getting up from the toilet and got profoundly dizzy and fell down fracturing her right hip. When she could not improve her ambulation she was brought to [facility] where she was found by x-ray to have a right closed intertrochanteric femur fracture. She was seen by Dr. Gifford who recommended surgical correction of her hip fracture repair. Her initial troponin was found to be 0.07, and increased to 0.26. At no time as the patient had any chest pain, angina, shortness of breath, dyspnea on exertion, palpitations. She was in normal health prior to her fall. Her EKG upon presentation demonstrated sinus tachycardia with nonspecific ST and T-wave changes in the anterolateral leads. Telemetry shows sinus tachycardia at this time. She is asymptomatic. Upon admission her potassium level was found to be low, and her alcohol level was 56. Last echo in April 2015 shows segmental dysfunction with preserved EF, 55%; hypokinetic posterior basal, inferior basal mid inferior and mid lateral. Normal RV size and systolic function. Normal LA. Right atrium mildly enlarged. No significant valvular abnormality set mild diffuse mitral valve thickening and trivial MR. In the ER her blood pressure was 191/96 and now has improved with medical management. [] Past Medical History Allergies/Adverse Reactions: Allergies No Known Allergies Allergy (Verified 07/23/17 19:08) Home Medications: Ambulatory Orders Medication Instructions Recorded NK [NK] 07/23/17 Past Medical History (Chronic Problems): Chronic Problems Alcoholic hepatitis (Chronic) Alcohol abuse (Chronic) CAD (coronary artery disease) (Chronic) Status post stent Surgical History: hysterectomy, - - cad with stent - *Family History Maternal History Items: - - does not know Paternal History Items: - - does not know Smoking Status: Current every day smoker Tobacco Use: Cigarettes Review of Systems - Review of Systems General: Denies: Fever, Night Sweats, Fatigue Cardiovascular: Denies: Chest Discomfort, Shortness of Breath, Orthopnea, PND, Peripheral Edema, Palpitations, Lightheadedness, Dizziness, Near Syncope, Syncope Respiratory: Denies: Cough, Sputum Production, Hemoptysis Gastrointestinal: Denies: Hematemesis, Hematochezia, Melena Genitourinary: Denies: Dysuria, Hematuria Skin: Denies: Rash Subjectve: Patient laying in bed, no acute distress. Appears to be unkempt. Objective: Vital Signs Temp Pulse Resp BP Pulse Ox 98.0 F 60 18 115/64 97 07/24/17 07:40 07/24/17 07:44 07/24/17 07:40 07/24/17 07:40 07/24/17 07:40 Oxygen Flow Rate (L/min) 2 Oxygen Delivery Method Nasal Cannula Weight: 110 lb 7.225 oz Body Mass Index (BMI) 20.2 Intake and Output for Last 24 Hours 07/22/17 07/23/17 07/24/17 23:59 23:59 23:59 Intake Total 928 / 928 Output Total 100 / 100 Balance 828 / 828 General: Awake, Alert, Oriented x 3 HEENT: PERRL, EOMI, Sclera Non Icteric Neck: Supple, Good ROM, No Lymph Node Enlargement Lungs: Clear to auscultation Cardiovascular: Regular Rhythm, Normal S1, Normal S2, No Murmurs, No Rubs, No Gallops Vascular: No Carotid Bruits, Normal Femoral Pulses, Normal Radial Pulses, Normal Dorsalis Pedal Pulse, Normal Posterior Tibial Pulses Abdomen: Bowel Sounds Present, Soft, Non Tender, No HSM, No Organomegaly Extremities: No Cyanosis, No Clubbing, No edema Neurological: No Focal Motor or Sensory Deficit 07/23/17 22:00: PT 12.8, INR 1.0, APTT 24.0 L 07/23/17 22:00: Magnesium 1.7, Total Bilirubin 0.60, Direct Bilirubin 0.28 07/23/17 22:00: Phosphorus 2.6 07/23/17 22:00: Troponin I 0.07 H 07/24/17 00:55: Urine Color Yellow, Urine Clarity Clear, Urine pH 6.0, Ur Specific [place] 1.015, Urine Protein Negative, Urine Glucose (UA) Normal, Urine Ketones Negative, Urine Occult Blood Negative, Urine Nitrite Negative, Urine Bilirubin Negative, Urine Urobilinogen Normal, Ur Leukocyte Esterase Negative 07/24/17 01:51: Troponin I 0.15 H 07/24/17 06:13: WBC 6.7, RBC 2.58 L, Hgb 10.1 L, Hct 30.6 L, MCV 118.6 H, MCH 39.1 H, MCHC 33.0, RDW 13.5, RDW Differential 56.5 H, Plt Count 192, MPV 9.8, Immature Gran % (Auto) 0.400, Neut % (Auto) 66.3, Lymph % (Auto) 21.8, [place] % (Auto) 10.3 H, Eos % (Auto) 0.6, Baso % (Auto) 0.6, Absolute Neuts (auto) 4.4, Total Counted Not Reportable 07/24/17 06:13: Sodium 142, Potassium 5.0, Chloride 112 H, Carbon Dioxide 24.0, Anion Gap 6, BUN 8, Creatinine 0.34 L, Est GFR (MDRD) Af Amer 249, Est GFR (MDRD) Non-Af 206, BUN/Creatinine Ratio 23.7 H, Glucose 90, Calcium 7.6 L, Triglycerides 83, Cholesterol 121, LDL Cholesterol 66, VLDL Cholesterol 17, HDL Cholesterol 38 L 07/24/17 06:13: Troponin I 0.26 H 07/24/17 06:13: Magnesium 1.8 07/24/17 06:13: Phosphorus 2.3 L Rhythm: EKG: ECHO: Pending Stress Test: Pending Cardiac Cath: PCI: CT Surgery: Holter monitor: EPS: PPM: CXR: Chest CT Scan: Assessment/Plan 1. Coronary artery disease: Patient has a known history of coronary artery disease status post angioplasty and stenting in 2010 and at [facility] of an unknown vessel. She has not followed up with any atm servicer since that time, and has not participated in cardiac rehab. She now presents with dizziness, alcohol abuse, hypokalemia, and a fall causing a right hip fracture. She has had initial abnormal troponin which has peaked at 0.26 as of this writing. Prior to her hip fracture she was completely ambulatory and has been asymptomatic from a cardiac standpoint. She has not been on any antihypertensive medications, and came in rather hypertensive. She has been started on baby aspirin, metoprolol, and lisinopril as well as clonidine. Given the patient's hypotension this morning, I have requested that we hold her clonidine at this time. At this point I would recommend a 2D echo with Doppler to determine her LV function and pulmonary pressures. The patient's LV function is markedly different from her echo in 2016, she may require repeat catheterization to further risk stratify her. As she does need hip fracture surgery, I would not entertain angioplasty and stenting unless there is a critical need prior to her hip surgery. If her LV function is normal then, I would recommend that she undergo a dobutamine echocardiogram to further risk stratify her. If her debridement echo is negative for ischemia, she will be deemed at low risk for noncardiac surgery, and her troponin release is most likely a type II demand type ischemia event. Her EKG does not appear to have any significant changes to localize her abnormalities. Unfortunately we have no old records with respect to the patient's angiogram or stenting in 2010. She is no longer on Plavix. 2. Tobacco cessation: I strongly encouraged the patient to discontinue all tobacco products. It does not appear that she is ready for tobacco cessation. 3. Alcohol abuse: The patient also consumes a significant amount of alcohol which may have contributed to her fall. She had an alcohol level of 56 upon arrival. Patient may have impending alcohol withdrawal hypertension and delirium tremens, which should be monitored for over the next 24-36 hours. Recommend that she discontinue all alcohol products. 4. Hyperlipidemia: Recommend obtaining a fasting lipid profile. Given her known coronary disease she requires an LDL less than 70, which may be problematic with the use of statins with respect to her ongoing alcohol use. 5. Thank you very much for the opportunity to participate in the cardiac care of your patient. Consultation time took place between 915 and 10 AM. Code Visit Inpatient E&M: 64572 Init Hosp L3
--- NOTE | 2017-07-24 10:09 | CON.PCM_ITS ---
Problem List (1) Non-STEMI (non-ST elevated myocardial infarction) Status: Acute (2) Preoperative cardiovascular examination Status: Acute (3) CAD (coronary artery disease) Status: Chronic Comment: Status post stent Reason for Consult Date of Consultation: 07/24/17 Reason for Consultation: Preoperative risk stratification, coronary disease status post stenting, hypertension, alcohol abuse History of Present Illness: The patient is a 67 year old F, heavy alcohol user, with hypertension, hypercholesterolemia, coronary artery disease status post angioplasty and stenting after myocardial infarction in [facility] in 2010. As best I can tell patient did not have an acute event, but she cannot recall. There are no records in our [employer] computer system and apparently she had no cardiac follow-up. 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 Patient denies any catheterization since then. She denies having a stress test. She continues to smoke about 1 pack per day and has done so over the past 40 years. She is a nondiabetic, never been diagnosed with COPD. She does have a history of hypertension and was previously on Lopressor, lisinopril and clonidine, but she has discontinued all of her medications including baby aspirin. She is on no cholesterol medications. Patient has had no chest pain since her initial event in 2010. Patient was admitted after getting up from the toilet and got profoundly dizzy and fell down fracturing her right hip. When she could not improve her ambulation she was brought to [facility] where she was found by x-ray to have a right closed intertrochanteric femur fracture. She was seen by Dr. Gifford who recommended surgical correction of her hip fracture repair. Her initial troponin was found to be 0.07, and increased to 0.26. At no time as the patient had any chest pain, angina, shortness of breath, dyspnea on exertion, palpitations. She was in normal health prior to her fall. Her EKG upon presentation demonstrated sinus tachycardia with nonspecific ST and T-wave changes in the anterolateral leads. Telemetry shows sinus tachycardia at this time. She is asymptomatic. Upon admission her potassium level was found to be low, and her alcohol level was 56. Last echo in April 2015 shows segmental dysfunction with preserved EF , 55%; hypokinetic posterior basal, inferior basal mid inferior and mid lateral. Normal RV size and systolic function. Normal LA. Right atrium mildly enlarged. No significant valvular abnormality set mild diffuse mitral valve thickening and trivial MR. In the ER her blood pressure was 191/96 and now has improved with medical management. [] Past Medical History Allergies/Adverse Reactions: Allergies No Known Allergies Allergy (Verified 07/23/17 19:08) Home Medications: Ambulatory Orders Medication Instructions Recorded NK [NK] 07/23/17 Past Medical History (Chronic Problems): Chronic Problems Alcoholic hepatitis (Chronic) Alcohol abuse (Chronic) CAD (coronary artery disease) (Chronic) Status post stent Surgical History: hysterectomy, - - cad with stent - *Family History Maternal History Items: - - does not know Paternal History Items: - - does not know Smoking Status: Current every day smoker Tobacco Use: Cigarettes Review of Systems - Review of Systems General: Denies: Fever, Night Sweats, Fatigue Cardiovascular: Denies: Chest Discomfort, Shortness of Breath, Orthopnea, PND, Peripheral Edema, Palpitations, Lightheadedness, Dizziness, Near Syncope, Syncope Respiratory: Denies: Cough, Sputum Production, Hemoptysis Gastrointestinal: Denies: Hematemesis, Hematochezia, Melena Genitourinary: Denies: Dysuria, Hematuria Skin: Denies: Rash Subjectve: Patient laying in bed, no acute distress. Appears to be unkempt. Objective: Vital Signs Temp Pulse Resp BP Pulse Ox 98.0 F 60 18 115/64 97 07/24/17 07:40 07/24/17 07:44 07/24/17 07:40 07/24/17 07:40 07/24/17 07:40 Oxygen Flow Rate (L/min) 2 Oxygen Delivery Method Nasal Cannula Weight: 110 lb 7.225 oz Body Mass Index (BMI) 20.2 Intake and Output for Last 24 Hours 07/22/17 07/23/17 07/24/17 23:59 23:59 23:59 Intake Total 928 / 928 Output Total 100 / 100 Balance 828 / 828 General: Awake, Alert, Oriented x 3 HEENT: PERRL, EOMI, Sclera Non Icteric Neck: Supple, Good ROM, No Lymph Node Enlargement Lungs: Clear to auscultation Cardiovascular: Regular Rhythm, Normal S1, Normal S2, No Murmurs, No Rubs, No Gallops Vascular: No Carotid Bruits, Normal Femoral Pulses, Normal Radial Pulses, Normal Dorsalis Pedal Pulse, Normal Posterior Tibial Pulses Abdomen: Bowel Sounds Present, Soft, Non Tender, No HSM, No Organomegaly Extremities: No Cyanosis, No Clubbing, No edema Neurological: No Focal Motor or Sensory Deficit 07/23/17 22:00: PT 12.8, INR 1.0, APTT 24.0 L 07/23/17 22:00: Magnesium 1.7, Total Bilirubin 0.60, Direct Bilirubin 0.28 07/23/17 22:00: Phosphorus 2.6 07/23/17 22:00: Troponin I 0.07 H 07/24/17 00:55: Urine Color Yellow, Urine Clarity Clear, Urine pH 6.0, Ur Specific [place] 1.015, Urine Protein Negative, Urine Glucose (UA) Normal, Urine Ketones Negative, Urine Occult Blood Negative, Urine Nitrite Negative, Urine Bilirubin Negative, Urine Urobilinogen Normal, Ur Leukocyte Esterase Negative 07/24/17 01:51: Troponin I 0.15 H 07/24/17 06:13: WBC 6.7, RBC 2.58 L, Hgb 10.1 L, Hct 30.6 L, MCV 118.6 H, MCH 39.1 H, MCHC 33.0, RDW 13.5, RDW Differential 56.5 H, Plt Count 192, MPV 9.8, Immature Gran % (Auto) 0.400, Neut % (Auto) 66.3, Lymph % (Auto) 21.8, [place] % ( Auto) 10.3 H, Eos % (Auto) 0.6, Baso % (Auto) 0.6, Absolute Neuts (auto) 4.4, Total Counted Not Reportable 07/24/17 06:13: Sodium 142, Potassium 5.0, Chloride 112 H, Carbon Dioxide 24.0, Anion Gap 6, BUN 8, Creatinine 0.34 L, Est GFR (MDRD) Af Amer 249, Est GFR (MDRD ) Non-Af 206, BUN/Creatinine Ratio 23.7 H, Glucose 90, Calcium 7.6 L, Triglycerides 83, Cholesterol 121, LDL Cholesterol 66, VLDL Cholesterol 17, HDL Cholesterol 38 L 07/24/17 06:13: Troponin I 0.26 H 07/24/17 06:13: Magnesium 1.8 07/24/17 06:13: Phosphorus 2.3 L Rhythm: EKG: ECHO: Pending Stress Test: Pending Cardiac Cath: PCI: CT Surgery: Holter monitor: EPS: PPM: CXR: Chest CT Scan: Assessment/Plan 1. Coronary artery disease: Patient has a known history of coronary artery disease status post angioplasty and stenting in 2010 and at [facility] of an unknown vessel. She has not followed up with any agency sales director since that time, and has not participated in cardiac rehab. She now presents with dizziness, alcohol abuse, hypokalemia, and a fall causing a right hip fracture. She has had initial abnormal troponin which has peaked at 0.26 as of this writing. Prior to her hip fracture she was completely ambulatory and has been asymptomatic from a cardiac standpoint. She has not been on any antihypertensive medications, and came in rather hypertensive. She has been started on baby aspirin, metoprolol, and lisinopril as well as clonidine. Given the patient's hypotension this morning, I have requested that we hold her clonidine at this time. At this point I would recommend a 2D echo with Doppler to determine her LV function and pulmonary pressures. The patient's LV function is markedly different from her echo in 2016, she may require repeat catheterization to further risk stratify her. As she does need hip fracture surgery, I would not entertain angioplasty and stenting unless there is a critical need prior to her hip surgery. If her LV function is normal then, I would recommend that she undergo a dobutamine echocardiogram to further risk stratify her. If her debridement echo is negative for ischemia, she will be deemed at low risk for noncardiac surgery, and her troponin release is most likely a type II demand type ischemia event. Her EKG does not appear to have any significant changes to localize her abnormalities. Unfortunately we have no old records with respect to the patient's angiogram or stenting in 2010. She is no longer on Plavix. 2. Tobacco cessation: I strongly encouraged the patient to discontinue all tobacco products. It does not appear that she is ready for tobacco cessation. 3. Alcohol abuse: The patient also consumes a significant amount of alcohol which may have contributed to her fall. She had an alcohol level of 56 upon arrival. Patient may have impending alcohol withdrawal hypertension and delirium tremens, which should be monitored for over the next 24-36 hours. Recommend that she discontinue all alcohol products. 4. Hyperlipidemia: Recommend obtaining a fasting lipid profile. Given her known coronary disease she requires an LDL less than 70, which may be problematic with the use of statins with respect to her ongoing alcohol use. 5. Thank you very much for the opportunity to participate in the cardiac care of your patient. Consultation time took place between 915 and 10 AM. Code Visit Inpatient E&M: 83174 Init Hosp L3
[2017-07-24] MEDS: Thiamine Hydrochloride 100 MG Tablet PO (10:13)
[2017-07-24] MEDS: Folic Acid 1 MG Tablet PO (10:13)
[2017-07-24] MEDS: Metoprolol Tartrate 25 MG Tablet 12.5 MG PO ×2 (10:13→22:38)
[2017-07-24] MEDS: Aspirin E.C. 81 MG Tablet PO (10:13)
[2017-07-24] MEDS: Multivitamins,Ther W-Minerals Tablet 1 TABLET PO (10:13)
[2017-07-24] MEDS: Na Biphos/Potassium Phosphate PACKET 1 PACKET PO ×3 (12:27→22:38)
[2017-07-24] MEDS: 0.9% Normal Saline 1,000 ML 75 ML IV ×2 (12:27→22:39)
--- NOTE | 2017-07-24 12:27 | PCM.PN.HOSP ---
Patient Problems: Active and Suspected Problems Closed right hip fracture (Acute) CHRONIC ALCOHOL USE DEPENDENCE (Acute) Acute on recurrent fall (Acute) Non-STEMI (non-ST elevated myocardial infarction) (Acute) Preoperative cardiovascular examination (Acute) Subjective: Patient with no acute events since admission per self and per nursing report. She notes pain is controlled except for when she moves in the bed at all approximately moves her lower extremity. She notes living at home with her son who works at home and is intact. Patient admitted upon presentation to drinking approximately 3 bottles of beer per day however given alcohol level suspect more intake. Upon presentation patient disheveled, unkempt. Did discuss concerns about returning home with acute hip fracture and encourage patient to consider prison facility if recommended per therapies. Objective: Physical Examination: General: awake, alert, oriented x 3 and cooperative, laying in the bed in no apparent distress. Skin: normal color, turgor, no icterus, cyanosis. HEENT: AT/NC, EOMI, PERRLA, moderately dry MM, poor oral care. Lungs: Diminished BS BL, > bases, moderate effort, no rales, ronchi or wheezing. Heart: Regular rate and rhythm; no gallop, rub audible. Abdomen: soft, thin habitus, NTTP, ND, normal BS. Extremities: no cyanosis, clubbing, s/p fall w/ R hip fracture. Neurological: patient awake, alert, oriented x 3; cognitive function intact; pupils equally reactive to light and accomodation; cranial nerves II-XII grossly normal, moving all 4 extremities but as expected severely limited RLE s/p fall w/ R hip fracture, strength accordingly severely globally decreased. Psychiatric: affect appears normal, no acute evidence of depressive or anxiety feelings. Vitals/I&O's: Vital Signs Temp Pulse Resp BP Pulse Ox 98.0 F 80 18 115/64 97 07/24/17 07:40 07/24/17 11:12 07/24/17 07:40 07/24/17 07:40 07/24/17 07:40 Oxygen Flow Rate (L/min) 2 Oxygen Delivery Method Nasal Cannula Weight: 110 lb 7.225 oz Body Mass Index (BMI) 20.2 Intake and Output for Last 24 Hours 07/22/17 07/23/17 07/24/17 23:59 23:59 23:59 Intake Total 928 / 928 Output Total 100 / 100 Balance 828 / 828 Laboratory Results 07/23/17 22:00: PT 12.8, INR 1.0, APTT 24.0 L 07/23/17 22:00: Magnesium 1.7, Total Bilirubin 0.60, Direct Bilirubin 0.28, AST 80 H, ALT 73 H, Alkaline Phosphatase 182 H, Total Protein 6.5, Albumin 2.6 L, Globulin 3.9 07/23/17 22:00: Phosphorus 2.6 07/23/17 22:00: Lipase 158 07/23/17 22:00: Ethyl Alcohol 8.0 07/23/17 22:00: Troponin I 0.07 H 07/24/17 00:55: Urine Color Yellow, Urine Clarity Clear, Urine pH 6.0, Ur Specific [place] 1.015, Urine Protein Negative, Urine Glucose (UA) Normal, Urine Ketones Negative, Urine Occult Blood Negative, Urine Nitrite Negative, Urine Bilirubin Negative, Urine Urobilinogen Normal, Ur Leukocyte Esterase Negative 07/24/17 01:51: Troponin I 0.15 H 07/24/17 06:13: WBC 6.7, RBC 2.58 L, Hgb 10.1 L, Hct 30.6 L, MCV 118.6 H, MCH 39.1 H, MCHC 33.0, RDW 13.5, RDW Differential 56.5 H, Plt Count 192, MPV 9.8, Immature Gran % (Auto) 0.400, Neut % (Auto) 66.3, Lymph % (Auto) 21.8, [place] % (Auto) 10.3 H, Eos % (Auto) 0.6, Baso % (Auto) 0.6, Absolute Neuts (auto) 4.4, Absolute Lymphs (auto) 1.46, Total Counted Not Reportable 07/24/17 06:13: Sodium 142, Potassium 5.0, Chloride 112 H, Carbon Dioxide 24.0, Anion Gap 6, BUN 8, Creatinine 0.34 L, Estim Creat Clear Calc 43.18, Est GFR (MDRD) Af Amer 249, Est GFR (MDRD) Non-Af 206, BUN/Creatinine Ratio 23.7 H, Glucose 90, Calcium 7.6 L, Triglycerides 83, Cholesterol 121, LDL Cholesterol 66, VLDL Cholesterol 17, HDL Cholesterol 38 L, TSH 1.21 07/24/17 06:13: Troponin I 0.26 H 07/24/17 06:13: Magnesium 1.8 07/24/17 06:13: Phosphorus 2.3 L Current Medications Acetaminophen (Tylenol) 650 mg PO Q6H PRN PRN PRN Reason: Mild Pain (scale 0-3)/T>100.7 Al Hydroxide/Mg Hydroxide (Mylanta Ii) 30 ml PO Q6H PRN PRN PRN Reason: Gastric Burning Aspirin (Ecotrin) 81 mg PO DAILY@0800 [facility] Last Admin: 07/24/17 10:13 Dose: 81 mg Atorvastatin Calcium (Lipitor) 40 mg PO QHS [facility] Last Admin: 07/23/17 23:33 Dose: 40 mg Bisacodyl (Dulcolax) 10 mg RECTAL DAILY PRN PRN PRN Reason: Constipation Chlordiazepoxide (Librium) 50 mg PO Q6H [facility] PRN Reason: Taper Stop: 07/27/17 13:59 Docusate Sodium (Colace) 200 mg PO BID PRN PRN PRN Reason: Constipation Folic Acid (Folic Acid) 1 mg PO DAILY@0800 [facility] Last Admin: 07/24/17 10:13 Dose: 1 mg Hydralazine HCl (Apresoline Iv) 10 mg IV Q4H PRN PRN PRN Reason: SBP>180 mmhg Sodium Chloride () 1,000 mls @ 75 mls/hr IV .[id number] [facility] Ibuprofen (Motrin) 600 mg PO Q8H PRN PRN PRN Reason: Mild-Moderate Pain (1-5/10) Last Admin: 07/24/17 10:13 Dose: 600 mg Loperamide HCl (Imodium) 2 - 4 mg PO UD PRN PRN Reason: LOOSE STOOLS Lorazepam (Ativan) 2 mg PO Q2H PRN PRN; Protocol PRN Reason: CIWA score > 8 but <15 Lorazepam (Ativan) 2 mg PO UD PRN; Protocol PRN Reason: CIWA score >/=15. Lorazepam (Ativan) 2 mg IV Q2H PRN PRN; Protocol PRN Reason: CIWA score > 8 but <15 Lorazepam (Ativan) 2 mg IV UD PRN; Protocol PRN Reason: CIWA score >/=15. Metoprolol Tartrate (Lopressor (Beta Sophia)) 12.5 mg PO BID [facility] Last Admin: 07/24/17 10:13 Dose: 12.5 mg Morphine Sulfate () 1 - 2 mg IV Q4H PRN PRN PRN Reason: SEVERE PAIN (6-10/10) Last Admin: 07/24/17 09:22 Dose: 2 mg Multivitamins/Minerals ([facility]amin [facility] Minerals) [facility] Last Admin: 07/24/17 10:13 Dose: 1 tablet Nicotine (Nicoderm Cq (Pbkc)) 21 mg TRANSDERM. DAILY [facility] Last Admin: 07/24/17 08:46 Dose: 21 mg Nitroglycerin (Nitrostat) 0.4 mg SUBLINGUAL Q5M PRN PRN Reason: CHEST PAIN Nutritional Formula (Lactose Free) (Ensure Enlive) 120 ml PO 4X/DAY [facility] Ondansetron HCl (Zofran) 4 mg IV Q8H PRN PRN PRN Reason: Nausea Oxycodone HCl (Oxyir) 5 mg PO Q4H PRN PRN PRN Reason: Moderate Pain (pain scale 4-5) Last Admin: 07/24/17 12:20 Dose: 5 mg Polyethylene Glycol (Miralax) 17 gm PO DAILY [facility] Last Admin: 07/24/17 10:14 Dose: Not Given Potassium Phos/Sodium Phos (Neutra-Phos Packet) [facility] Sodium Chloride () 5 - 30 ml IV UD PRN PRN Reason: SALINE FLUSH Last Admin: 07/23/17 23:47 Dose: 10 ml Thiamine HCl ([facility]itamin B1) [facility] Last Admin: 07/24/17 10:13 Dose: 100 mg Trazodone HCl (Desyrel) 50 mg PO QHS [facility] Last Admin: 07/23/17 23:32 Dose: 50 mg Medical Necessity - Tobacco Use Smoking Status: Current every day smoker Tobacco Use: Cigarettes Assessment/Plan Active and Suspected Problems Closed right hip fracture (Acute) CHRONIC ALCOHOL USE DEPENDENCE (Acute) Acute on recurrent fall (Acute) Non-STEMI (non-ST elevated myocardial infarction) (Acute) Preoperative cardiovascular examination (Acute) The patient is a 67 y/o F w/ PMHx: EtOH Abuse, Tobacco use, Hx TIA, ? Hx EtOH Hepatitis, CAD s/p PCI x 1 who presents to the [facility] ED on 07/23/17 w/ history of mechanical fall. (1) General debility, s/p mechanical fall w/ R hip pain s/p mechanical fall w/ R did slightly impacted intertrochanteric fracture: Plain film noting slightly impacted right intertrochanteric fracture. Orthopedic surgery consulted from ED, Dr. Gifford. Admitted to PCU given concurrent enzyme mild increase. Given need for further cardiac work-up, allow diet, NPO after midnight, continue gentle IVFs, mag and phos obtained, TSH normal, UA/UCx, headley for OR, monitor I/Os, frequent positioning, fall precautions. Pain, anti-emetic regimen. PT/OT following operative intervention. CM consulted for discharge planning. Per [facility] Perioperative Cardiac Risk Index given > 4 METS, age 67, Cr 0.35, independent living status, ASA 3 for orthopedic intervention, estimated risk of perioperative myocardial infarction or cardiac arrest remains moderate to elevated secondary to elevated enzymes upon presentation in addition to complicated by EtOH Abuse history and severe protein-calorie malnutrition. Will obtain 07/25/17 AM ECHO and nuclear stress testing prior to decision for transition to OR. Dr. Gifford updated. (2) Indeterminate cardiac enzymes w/ EKG change from prior w/ CAD s/p PCI x 1 history: EKG shows sinus rhythm T-wave inversion in V2 to V4 with old septal infarct which has changed since 2016, CXR w/ no acute findings, initial trop 0.07-->0.15-->0.26. Maintain on monitored bed to assure no acute myocardial infarction with serial cardiac enzymes and EKGs. Mag pending. FLP in AM. ECHO ordered. Reviewed with Dr. Bhat, consulted and will follow with recommendation for planned additionally 07/25/17 nuclear stress testing prior to decision to transition to OR. ASA, statin, low dose BB w/ hold parameters. (3) EtOH Abuse, Hx EtOH Hepatitis: Patient notes routine consumption of at least 3-5 large beers per day, suspect more than this baseline daily. Will maintain on librium taper in addition to CIWA protocol, MVI, thiamine and folic acid. Mag and phos pending. (4) Tobacco Abuse: Encouraged cessation, inpatient consultation per RT, NR if desired. (5) Hx TIA: Maintain on asa, statin, as noted w/ elevated enzyme, low dose BB added although now low BB, initially elevated BP upon presentation, continue to trend. (6) Severe Protein-Calorie Malnutrition: Evidenced per habitus, BMI, loss muscle and fat, nutrition consulted, maintain on supplements as noted. (7) DVT Prophylaxis: SCDs, lovenox x 1 administered, old on further given planned OR 07/25/17 if ECHO, nuclear resulted w/ clearance per Cardiology. PATIENT SEEN IN CONJUNCTION WITH BRIANNA BELL VISUAL MANAGER. Brianna additionally evaluated patient and has assisted in coordinating patient care, addressing patient questions. Code Visit Inpatient E&M: 78310 Subs Hosp L3
--- NOTE | 2017-07-24 12:31 | PN_ITS ---
Patient Problems: Active and Suspected Problems Closed right hip fracture (Acute) CHRONIC ALCOHOL USE DEPENDENCE (Acute) Acute on recurrent fall (Acute) Non-STEMI (non-ST elevated myocardial infarction) (Acute) Preoperative cardiovascular examination (Acute) Subjective: Patient with no acute events since admission per self and per nursing report. She notes pain is controlled except for when she moves in the bed at all approximately moves her lower extremity. She notes living at home with her son who works at home and is intact. Patient admitted upon presentation to drinking approximately 3 bottles of beer per day however given alcohol level suspect more intake. Upon presentation patient disheveled, unkempt. Did discuss concerns about returning home with acute hip fracture and encourage patient to consider alf facility if recommended per therapies. Objective: Physical Examination: General: awake, alert, oriented x 3 and cooperative, laying in the bed in no apparent distress. Skin: normal color, turgor, no icterus, cyanosis. HEENT: AT/NC, EOMI, PERRLA, moderately dry MM, poor oral care. Lungs: Diminished BS BL, > bases, moderate effort, no rales, ronchi or wheezing. Heart: Regular rate and rhythm; no gallop, rub audible. Abdomen: soft, thin habitus, NTTP, ND, normal BS. Extremities: no cyanosis, clubbing, s/p fall w/ R hip fracture. Neurological: patient awake, alert, oriented x 3; cognitive function intact; pupils equally reactive to light and accomodation; cranial nerves II-XII grossly normal, moving all 4 extremities but as expected severely limited RLE s/ p fall w/ R hip fracture, strength accordingly severely globally decreased. Psychiatric: affect appears normal, no acute evidence of depressive or anxiety feelings. Vitals/I&O's: Vital Signs Temp Pulse Resp BP Pulse Ox 98.0 F 80 18 115/64 97 07/24/17 07:40 07/24/17 11:12 07/24/17 07:40 07/24/17 07:40 07/24/17 07:40 Oxygen Flow Rate (L/min) 2 Oxygen Delivery Method Nasal Cannula Weight: 110 lb 7.225 oz Body Mass Index (BMI) 20.2 Intake and Output for Last 24 Hours 07/22/17 07/23/17 07/24/17 23:59 23:59 23:59 Intake Total 928 / 928 Output Total 100 / 100 Balance 828 / 828 Laboratory Results 07/23/17 22:00: PT 12.8, INR 1.0, APTT 24.0 L 07/23/17 22:00: Magnesium 1.7, Total Bilirubin 0.60, Direct Bilirubin 0.28, AST 80 H, ALT 73 H, Alkaline Phosphatase 182 H, Total Protein 6.5, Albumin 2.6 L, Globulin 3.9 07/23/17 22:00: Phosphorus 2.6 07/23/17 22:00: Lipase 158 07/23/17 22:00: Ethyl Alcohol 8.0 07/23/17 22:00: Troponin I 0.07 H 07/24/17 00:55: Urine Color Yellow, Urine Clarity Clear, Urine pH 6.0, Ur Specific [place] 1.015, Urine Protein Negative, Urine Glucose (UA) Normal, Urine Ketones Negative, Urine Occult Blood Negative, Urine Nitrite Negative, Urine Bilirubin Negative, Urine Urobilinogen Normal, Ur Leukocyte Esterase Negative 07/24/17 01:51: Troponin I 0.15 H 07/24/17 06:13: WBC 6.7, RBC 2.58 L, Hgb 10.1 L, Hct 30.6 L, MCV 118.6 H, MCH 39.1 H, MCHC 33.0, RDW 13.5, RDW Differential 56.5 H, Plt Count 192, MPV 9.8, Immature Gran % (Auto) 0.400, Neut % (Auto) 66.3, Lymph % (Auto) 21.8, [place] % ( Auto) 10.3 H, Eos % (Auto) 0.6, Baso % (Auto) 0.6, Absolute Neuts (auto) 4.4, Absolute Lymphs (auto) 1.46, Total Counted Not Reportable 07/24/17 06:13: Sodium 142, Potassium 5.0, Chloride 112 H, Carbon Dioxide 24.0, Anion Gap 6, BUN 8, Creatinine 0.34 L, Estim Creat Clear Calc 43.18, Est GFR ( MDRD) Af Amer 249, Est GFR (MDRD) Non-Af 206, BUN/Creatinine Ratio 23.7 H, Glucose 90, Calcium 7.6 L, Triglycerides 83, Cholesterol 121, LDL Cholesterol 66 , VLDL Cholesterol 17, HDL Cholesterol 38 L, TSH 1.21 07/24/17 06:13: Troponin I 0.26 H 07/24/17 06:13: Magnesium 1.8 07/24/17 06:13: Phosphorus 2.3 L Current Medications Acetaminophen (Tylenol) 650 mg PO Q6H PRN PRN PRN Reason: Mild Pain (scale 0-3)/T>100.7 Al Hydroxide/Mg Hydroxide (Mylanta Ii) 30 ml PO Q6H PRN PRN PRN Reason: Gastric Burning Aspirin (Ecotrin) 81 mg PO DAILY@0800 [facility] Last Admin: 07/24/17 10:13 Dose: 81 mg Atorvastatin Calcium (Lipitor) 40 mg PO QHS [facility] Last Admin: 07/23/17 23:33 Dose: 40 mg Bisacodyl (Dulcolax) 10 mg RECTAL DAILY PRN PRN PRN Reason: Constipation Chlordiazepoxide (Librium) 50 mg PO Q6H [facility] PRN Reason: Taper Stop: 07/27/17 13:59 Docusate Sodium (Colace) 200 mg PO BID PRN PRN PRN Reason: Constipation Folic Acid (Folic Acid) 1 mg PO DAILY@0800 [facility] Last Admin: 07/24/17 10:13 Dose: 1 mg Hydralazine HCl (Apresoline Iv) 10 mg IV Q4H PRN PRN PRN Reason: SBP>180 mmhg Sodium Chloride () 1,000 mls @ 75 mls/hr IV .[id number] [facility] Ibuprofen (Motrin) 600 mg PO Q8H PRN PRN PRN Reason: Mild-Moderate Pain (1-5/10) Last Admin: 07/24/17 10:13 Dose: 600 mg Loperamide HCl (Imodium) 2 - 4 mg PO UD PRN PRN Reason: LOOSE STOOLS Lorazepam (Ativan) 2 mg PO Q2H PRN PRN; Protocol PRN Reason: CIWA score > 8 but <15 Lorazepam (Ativan) 2 mg PO UD PRN; Protocol PRN Reason: CIWA score >/=15. Lorazepam (Ativan) 2 mg IV Q2H PRN PRN; Protocol PRN Reason: CIWA score > 8 but <15 Lorazepam (Ativan) 2 mg IV UD PRN; Protocol PRN Reason: CIWA score >/=15. Metoprolol Tartrate (Lopressor (Beta Sophia)) 12.5 mg PO BID [facility] Last Admin: 07/24/17 10:13 Dose: 12.5 mg Morphine Sulfate () 1 - 2 mg IV Q4H PRN PRN PRN Reason: SEVERE PAIN (6-10/10) Last Admin: 07/24/17 09:22 Dose: 2 mg Multivitamins/Minerals (Multivitamin With Minerals) [facility] Last Admin: 07/24/17 10:13 Dose: 1 tablet Nicotine (Nicoderm Cq (Pbkc)) 21 mg TRANSDERM. DAILY [facility] Last Admin: 07/24/17 08:46 Dose: 21 mg Nitroglycerin (Nitrostat) 0.4 mg SUBLINGUAL Q5M PRN PRN Reason: CHEST PAIN Nutritional Formula (Lactose Free) (Ensure Enlive) 120 ml PO 4X/DAY [facility] Ondansetron HCl (Zofran) 4 mg IV Q8H PRN PRN PRN Reason: Nausea Oxycodone HCl (Oxyir) 5 mg PO Q4H PRN PRN PRN Reason: Moderate Pain (pain scale 4-5) Last Admin: 07/24/17 12:20 Dose: 5 mg Polyethylene Glycol (Miralax) 17 gm PO DAILY [facility] Last Admin: 07/24/17 10:14 Dose: Not Given Potassium Phos/Sodium Phos (Neutra-Phos Packet) [facility] Sodium Chloride () 5 - 30 ml IV UD PRN PRN Reason: SALINE FLUSH Last Admin: 07/23/17 23:47 Dose: 10 ml Thiamine HCl (Vitamin B1) [facility] Last Admin: 07/24/17 10:13 Dose: 100 mg Trazodone HCl (Desyrel) 50 mg PO QHS [facility] Last Admin: 07/23/17 23:32 Dose: 50 mg Medical Necessity - Tobacco Use Smoking Status: Current every day smoker Tobacco Use: Cigarettes Assessment/Plan Active and Suspected Problems Closed right hip fracture (Acute) CHRONIC ALCOHOL USE DEPENDENCE (Acute) Acute on recurrent fall (Acute) Non-STEMI (non-ST elevated myocardial infarction) (Acute) Preoperative cardiovascular examination (Acute) The patient is a 67 y/o F w/ PMHx: EtOH Abuse, Tobacco use, Hx TIA, ? Hx EtOH Hepatitis, CAD s/p PCI x 1 who presents to the [facility] ED on 07/23/17 w/ history of mechanical fall. (1) General debility, s/p mechanical fall w/ R hip pain s/p mechanical fall w/ R did slightly impacted intertrochanteric fracture: Plain film noting slightly impacted right intertrochanteric fracture. Orthopedic surgery consulted from ED , Dr. Gifford. Admitted to PCU given concurrent enzyme mild increase. Given need for further cardiac work-up, allow diet, NPO after midnight, continue gentle IVFs, mag and phos obtained, TSH normal, UA/UCx, headley for OR, monitor I/Os, frequent positioning, fall precautions. Pain, anti-emetic regimen. PT/OT following operative intervention. CM consulted for discharge planning. Per [facility] Perioperative Cardiac Risk Index given > 4 METS, age 67, Cr 0.35, independent living status, ASA 3 for orthopedic intervention, estimated risk of perioperative myocardial infarction or cardiac arrest remains moderate to elevated secondary to elevated enzymes upon presentation in addition to complicated by EtOH Abuse history and severe protein-calorie malnutrition. Will obtain 07/25/17 AM ECHO and nuclear stress testing prior to decision for transition to OR. Dr. Gifford updated. (2) Indeterminate cardiac enzymes w/ EKG change from prior w/ CAD s/p PCI x 1 history: EKG shows sinus rhythm T-wave inversion in V2 to V4 with old septal infarct which has changed since 2016, CXR w/ no acute findings, initial trop 0.07-->0.15-->0.26. Maintain on monitored bed to assure no acute myocardial infarction with serial cardiac enzymes and EKGs. Mag pending. FLP in AM. ECHO ordered. Reviewed with Dr. Bhat, consulted and will follow with recommendation for planned additionally 07/25/17 nuclear stress testing prior to decision to transition to OR. ASA, statin, low dose BB w/ hold parameters. (3) EtOH Abuse, Hx EtOH Hepatitis: Patient notes routine consumption of at least 3-5 large beers per day, suspect more than this baseline daily. Will maintain on librium taper in addition to CIWA protocol, MVI, thiamine and folic acid. Mag and phos pending. (4) Tobacco Abuse: Encouraged cessation, inpatient consultation per RT, NR if desired. (5) Hx TIA: Maintain on asa, statin, as noted w/ elevated enzyme, low dose BB added although now low BB, initially elevated BP upon presentation, continue to trend. (6) Severe Protein-Calorie Malnutrition: Evidenced per habitus, BMI, loss muscle and fat, nutrition consulted, maintain on supplements as noted. (7) DVT Prophylaxis: SCDs, lovenox x 1 administered, old on further given planned OR 07/25/17 if ECHO, nuclear resulted w/ clearance per Cardiology. PATIENT SEEN IN CONJUNCTION WITH BRIANNA BELL FREIGHT BROKER AGENT. Brianna additionally evaluated patient and has assisted in coordinating patient care, addressing patient questions. Code Visit Inpatient E&M: 95984 Subs Hosp L3
[2017-07-24] MEDS: chlordiazePOXIDE 25 MG Capsule PO ×2 (12:34→18:43)
[2017-07-24] MEDS: Enoxaparin 40 MG/0.4 ML Syringe SC (12:37)
[2017-07-24] MEDS: Atorvastatin Calcium 40 MG Tablet PO (22:38)
[2017-07-24] MEDS: traZODone 50 MG Tablet PO (22:38)
[2017-07-25] VITALS (24 sets, daily range): BP systolic 107–174; BP diastolic 61–93; PULSE 79–113; RESP 16–32; TEMP 36.1–37.1; O2SAT 96–100; BMI 20.2
[2017-07-25 01:32] LABS: Color, Urine Yellow (Yellow); Glucose, Dipstick Normal (Normal); Ketone-Dipstick Negative (Negative); Leukocyte Esterase-Dipstick 100 /ul (Negative); Nitrite-Dipstick Negative (Negative); Occult Blood-Urine 25 /ul (Negative); Protein-Dipstick 15 mg/dl (Negative); Specific Gravity, Urine 1.025 (1.002-1.030); Urine Bilirubin Dipstick Negative (Negative); Urine Clarity Clear (Clear); Urine Urobilinogen Normal (Normal)
[2017-07-25] MEDS: 0.9% NaCl Peripheral Flush Adult/Peds IV ×3 (01:40→21:14)
[2017-07-25] MEDS: Morphine 2 MG/ML Syringe IV ×2 (01:40→18:47)
[2017-07-25] MEDS: Piperacil/Tazobactam 3.375 GM/50 ML ML IV ×2 (04:45→18:37)
--- NOTE | 2017-07-25 04:46 | NURSING ---
PATIENT REFUSING TO TURN STATES, NO ONE LISTENS TO HER, SHE IS COMFORTABLE AND DOESN'T WANT TO MOVE. WILL NOT LET RN TURN PATIENT, EDUCATED ABOUT BED SORES, STILL REFUSING TO TURN AT THIS TIME.
[2017-07-25 06:13] LABS: Absolute Lymphocyte Count 1.29 X10^3/ul (0.83-4.51); Absolute Neutrophil Count 4.1 X10^3/uL (2.0-7.7); Basophil# 0.03 X10^3/uL; Basophil% 0.5 % (0-1); Eosinophil# 0.07 X10^3/uL; Eosinophils% 1.2 % (0-5); Hematocrit 31.9 % (37-47); Hemoglobin 10.3 g/dl (12.0-15.0); Lymphocyte # 1.29 X10^3/ul (4.0); Lymphocyte % 21.5 % (19-41); Mean Corp Hgb Conc 32.3 g/gl (32-36); Mean Corpuscular Hgb 39.6 pg (27.0-32.0); Mean Corpuscular Volume 122.7 fL (81-99); Mean Platelet Vol. 10.3 fl (6.2-12.0); Monocyte# 0.43 X10^3/uL; Monocyte% 7.2 % (0-10); Neutrophil # 4.14 X10^3/uL (2.7-7.7); Neutrophil % 69.1 % (47-70); Platelet Count 175 K/mm3 (150-450); RBC Distribution Width CV 13.6 % (11.6-14.6); RBC Distribution Width SD 58.8 fl (35.1-43.9)
[2017-07-25 06:41] LABS: Anion Gap 6 (5-15); BUN 8 mg/dL (7-18); BUN/Creat Ratio 26.1 RATIO (10-20); Calcium,Total 7.8 mg/dL (8.5-10.1); Chloride 112 mmol/L (98-107); Cholesterol 103 mg/dL (200); Creatinine, Serum 0.31 mg/dL (0.55-1.02); EST Glomerular Filtration Rate 230 mL/min (>60); Est Glom Filt Rate - Afr Amer 278 mL/min (>60); Estimated Creatinine Clearance 43.18 ml/min; Glucose 99 mg/dL (74-106); High Density Lipoprotein 39 mg/dL; Potassium 4.7 mmol/L (3.5-5.1); Sodium Level 140 mmol/L (136-145); Triglycerides 69 mg/dL; Very Low Density Lipoprotein 14 mg/dL (5-40)
[2017-07-25 06:42] LABS: POSITIVE COUNT NO; POSITIVE DIFFERENTIAL NO; POSITIVE MORPHOLOGY NO
[2017-07-25] MEDS: Ipratropium/Albuterol Sulfate 3 ML AMPUL.NEB INHALATION ×4 (07:32→23:48)
[2017-07-25] MEDS: LORazepam 2 MG/ML Syringe IV (08:47)
--- NOTE | 2017-07-25 08:47 | PCM.PN.CARD ---
Subjectve: Patient laying in bed, no acute distress, no events overnight. Telemetry negative. Stress test pending. Echo pending. Objective: Vital Signs Temp Pulse Resp BP Pulse Ox 98.0 F 86 18 128/65 H 98 07/25/17 08:41 07/25/17 08:41 07/25/17 08:41 07/25/17 08:41 07/25/17 08:41 Oxygen Flow Rate (L/min) 2 Oxygen Delivery Method Nasal Cannula Weight: 110 lb 7.225 oz Body Mass Index (BMI) 20.2 Intake and Output for Last 24 Hours 07/23/17 07/24/17 07/25/17 23:59 23:59 23:59 Intake Total 2942 / 2942 599 / 599 Output Total 490 / 490 550 / 550 Balance 2452 / 2452 49 / 49 General: Awake, Alert, Oriented x 3 HEENT: PERRL, EOMI, Sclera Non Icteric Neck: Supple, Good ROM, No Lymph Node Enlargement Lungs: Clear to auscultation Cardiovascular: Regular Rhythm, Normal S1, Normal S2, No Murmurs, No Rubs, No Gallops Vascular: No Carotid Bruits, Normal Femoral Pulses, Normal Radial Pulses, Normal Dorsalis Pedal Pulse, Normal Posterior Tibial Pulses Abdomen: Bowel Sounds Present, Soft, Non Tender, No HSM, No Organomegaly Extremities: No Cyanosis, No Clubbing, No edema Neurological: No Focal Motor or Sensory Deficit 07/24/17 12:25: Troponin I 0.34 H 07/25/17 01:25: Urine Color Yellow, Urine Clarity Clear, Urine pH 6.0, Ur Specific [place] 1.025, Urine Protein 15 H, Urine Glucose (UA) Normal, Urine Ketones Negative, Urine Occult Blood 25 H, Urine Nitrite Negative, Urine Bilirubin Negative, Urine Urobilinogen Normal, Ur Leukocyte Esterase 100 H 07/25/17 05:54: Sodium 140, Potassium 4.7, Chloride 112 H, Carbon Dioxide 22.0, Anion Gap 6, BUN 8, Creatinine 0.31 L, Est GFR (MDRD) Af Amer 278, Est GFR (MDRD) Non-Af 230, BUN/Creatinine Ratio 26.1 H, Glucose 99, Calcium 7.8 L, Triglycerides 69, Cholesterol 103, LDL Cholesterol 50, VLDL Cholesterol 14, HDL Cholesterol 39 L 07/25/17 05:54: WBC 6.0, RBC 2.60 L, Hgb 10.3 L, Hct 31.9 L, MCV 122.7 H, MCH 39.6 H, MCHC 32.3, RDW 13.6, RDW Differential 58.8 H, Plt Count 175, MPV 10.3, Immature Gran % (Auto) 0.500, Neut % (Auto) 69.1, Lymph % (Auto) 21.5, [place] % (Auto) 7.2, Eos % (Auto) 1.2, Baso % (Auto) 0.5, Absolute Neuts (auto) 4.1, Total Counted Not Reportable Rhythm: Telemetry negative. EKG: ECHO: Pending Stress Test: Pending Cardiac Cath: PCI: CT Surgery: Holter monitor: EPS: PPM: CXR: Chest CT Scan: Medical Necessity - Tobacco Use Smoking Status: Current every day smoker Tobacco Use: Cigarettes Assessment/Plan 1. Coronary artery disease: Patient has a known history of coronary artery disease status post angioplasty and stenting in 2010 and at [facility] of an unknown vessel. 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 She now presents with dizziness, alcohol abuse, hypokalemia, and a fall causing a right hip fracture. She has had initial abnormal troponin which has peaked at 0.26 as of this writing. Prior to her hip fracture she was completely ambulatory and has been asymptomatic from a cardiac standpoint. She has not been on any antihypertensive medications, and came in rather hypertensive. She has been started on baby aspirin, metoprolol, and lisinopril as well as clonidine. Given the patient's hypotension this morning, I have requested that we hold her clonidine at this time. At this point I would recommend a 2D echo with Doppler to determine her LV function and pulmonary pressures. If the patient's LV function is markedly different from her echo in 2016, she may require repeat catheterization to further risk stratify her. As she does need hip fracture surgery, I would not entertain angioplasty and stenting unless there is a critical need prior to her hip surgery. A nuclear stress test has been ordered this morning and results are pending. Her troponin release is most likely a type II demand type ischemia event. Her EKG does not appear to have any significant changes to localize her abnormalities. If her stress test is negative for inducible ischemia of a large territory of greater than 10%, she will be deemed at low risk for noncardiac surgery and may proceed with right hip repair. Unfortunately we have no old records with respect to the patient's angiogram or stenting in 2010. She is no longer on Plavix. Continue baby aspirin. 2. Tobacco cessation: I strongly encouraged the patient to discontinue all tobacco products. It does not appear that she is ready for tobacco cessation. 3. Alcohol abuse: The patient also consumes a significant amount of alcohol which may have contributed to her fall. She had an alcohol level of 56 upon arrival. Patient may have impending alcohol withdrawal hypertension and delirium tremens, which should be monitored for over the next 24-36 hours. Recommend that she discontinue all alcohol products. 4. Hyperlipidemia: Her LDL is 50, and HDL 39.. continue statin based therapy. 5. Thank you very much for the opportunity to participate in the cardiac care of your patient. Code Visit Inpatient E&M: 17033 Subs Hosp L2
--- NOTE | 2017-07-25 08:50 | NURSING ---
Pt made NPO after coughing spell with medications, per report. Pt taking Librium scheduled, unable to take PO. Ativan IV given PRN at this time.
--- NOTE | 2017-07-25 08:51 | PN.CARD_ITS ---
Subjectve: Patient laying in bed, no acute distress, no events overnight. Telemetry negative. Stress test pending. Echo pending. Objective: Vital Signs Temp Pulse Resp BP Pulse Ox 98.0 F 86 18 128/65 H 98 07/25/17 08:41 07/25/17 08:41 07/25/17 08:41 07/25/17 08:41 07/25/17 08:41 Oxygen Flow Rate (L/min) 2 Oxygen Delivery Method Nasal Cannula Weight: 110 lb 7.225 oz Body Mass Index (BMI) 20.2 Intake and Output for Last 24 Hours 07/23/17 07/24/17 07/25/17 23:59 23:59 23:59 Intake Total 2942 / 2942 599 / 599 Output Total 490 / 490 550 / 550 Balance 2452 / 2452 49 / 49 General: Awake, Alert, Oriented x 3 HEENT: PERRL, EOMI, Sclera Non Icteric Neck: Supple, Good ROM, No Lymph Node Enlargement Lungs: Clear to auscultation Cardiovascular: Regular Rhythm, Normal S1, Normal S2, No Murmurs, No Rubs, No Gallops Vascular: No Carotid Bruits, Normal Femoral Pulses, Normal Radial Pulses, Normal Dorsalis Pedal Pulse, Normal Posterior Tibial Pulses Abdomen: Bowel Sounds Present, Soft, Non Tender, No HSM, No Organomegaly Extremities: No Cyanosis, No Clubbing, No edema Neurological: No Focal Motor or Sensory Deficit 07/24/17 12:25: Troponin I 0.34 H 07/25/17 01:25: Urine Color Yellow, Urine Clarity Clear, Urine pH 6.0, Ur Specific [place] 1.025, Urine Protein 15 H, Urine Glucose (UA) Normal, Urine Ketones Negative, Urine Occult Blood 25 H, Urine Nitrite Negative, Urine Bilirubin Negative, Urine Urobilinogen Normal, Ur Leukocyte Esterase 100 H 07/25/17 05:54: Sodium 140, Potassium 4.7, Chloride 112 H, Carbon Dioxide 22.0, Anion Gap 6, BUN 8, Creatinine 0.31 L, Est GFR (MDRD) Af Amer 278, Est GFR (MDRD ) Non-Af 230, BUN/Creatinine Ratio 26.1 H, Glucose 99, Calcium 7.8 L, Triglycerides 69, Cholesterol 103, LDL Cholesterol 50, VLDL Cholesterol 14, HDL Cholesterol 39 L 07/25/17 05:54: WBC 6.0, RBC 2.60 L, Hgb 10.3 L, Hct 31.9 L, MCV 122.7 H, MCH 39.6 H, MCHC 32.3, RDW 13.6, RDW Differential 58.8 H, Plt Count 175, MPV 10.3, Immature Gran % (Auto) 0.500, Neut % (Auto) 69.1, Lymph % (Auto) 21.5, [place] % ( Auto) 7.2, Eos % (Auto) 1.2, Baso % (Auto) 0.5, Absolute Neuts (auto) 4.1, Total Counted Not Reportable Rhythm: Telemetry negative. EKG: ECHO: Pending Stress Test: Pending Cardiac Cath: PCI: CT Surgery: Holter monitor: EPS: PPM: CXR: Chest CT Scan: Medical Necessity - Tobacco Use Smoking Status: Current every day smoker Tobacco Use: Cigarettes Assessment/Plan 1. Coronary artery disease: Patient has a known history of coronary artery disease status post angioplasty and stenting in 2010 and at [facility] of an unknown vessel. 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 She now presents with dizziness, alcohol abuse, hypokalemia, and a fall causing a right hip fracture. She has had initial abnormal troponin which has peaked at 0.26 as of this writing. Prior to her hip fracture she was completely ambulatory and has been asymptomatic from a cardiac standpoint. She has not been on any antihypertensive medications, and came in rather hypertensive. She has been started on baby aspirin, metoprolol, and lisinopril as well as clonidine. Given the patient's hypotension this morning, I have requested that we hold her clonidine at this time. At this point I would recommend a 2D echo with Doppler to determine her LV function and pulmonary pressures. If the patient's LV function is markedly different from her echo in 2016, she may require repeat catheterization to further risk stratify her. As she does need hip fracture surgery, I would not entertain angioplasty and stenting unless there is a critical need prior to her hip surgery. A nuclear stress test has been ordered this morning and results are pending. Her troponin release is most likely a type II demand type ischemia event. Her EKG does not appear to have any significant changes to localize her abnormalities. If her stress test is negative for inducible ischemia of a large territory of greater than 10%, she will be deemed at low risk for noncardiac surgery and may proceed with right hip repair. Unfortunately we have no old records with respect to the patient's angiogram or stenting in 2010. She is no longer on Plavix. Continue baby aspirin. 2. Tobacco cessation: I strongly encouraged the patient to discontinue all tobacco products. It does not appear that she is ready for tobacco cessation. 3. Alcohol abuse: The patient also consumes a significant amount of alcohol which may have contributed to her fall. She had an alcohol level of 56 upon arrival. Patient may have impending alcohol withdrawal hypertension and delirium tremens, which should be monitored for over the next 24-36 hours. Recommend that she discontinue all alcohol products. 4. Hyperlipidemia: Her LDL is 50, and HDL 39.. continue statin based therapy. 5. Thank you very much for the opportunity to participate in the cardiac care of your patient. Code Visit Inpatient E&M: [id number] Subs Hosp L2
--- NOTE | 2017-07-25 11:07 | STE_ITS ---
Reason For Study: CAD, Chest Pain, Pre-Op Stress Results Protocol: Dobutamine Stress Echo Maximum Predicted HR: 153 bpm Target HR: 130 bpm% Maximum Pre dicted HR: 90 % DurationHeart Rate Stage (mm:ss) (bpm) BPCom ment Baseline 101 138/8 6No Chest Pain DSE 10 MCG 3:04 10 4 164/90No Chest Pain DSE 20 MCG 3:04 12 6 165/84No Chest Pain DSE 30 MCG 1:08 13 7 168/85No Chest Pain Recovery 102 153/7 7No Chest Pain Stress Duration: 7:16 mm:ss Maximum Stress HR: 137 bpmM ETS: 1 Baseline Echocardiogram Findings The estimated ejection fraction is 55 %. Stress Echo Wall motion Data Resting WMIntermediate WMStress WM Resting Wall Motion Wall Motion Stress Lateral-Basal: Mildly No regional wall motion hypokinetic. abnormalities noted. Posterior-Basal: Mildly hypokinetic. Infero-Basal: Mildly hypokinetic. EKG Data The baseline ECG demonstrates normal sinus rhythm with at rate of _ beats per minute. The patient was titrated from 10 mcg to a maximun of 30 mcg of dobutamine during the stress. The maximum heart rate attained was 139 beats per minute. This was 90% of maximum predicted heart rate. During dobutamine infusion, there were no ST or T wave changes noted to suggest ischemia. No clinical angina was noted. No arrhythmias noted. Interpretation Summary The estimated ejection fraction is 55 %. Lateral-Basal: Mildly hypokinetic Posterior-Basal: Mildly hypokinetic Infero-Basal: Mildly hypokinetic The patient was titrated from 10 mcg to a maximun of 30 mcg of dobutamine during the stress. Normal adequate dobutamine echocardiogram. Negative for ischemia by EKG and echocardiographic criteria. No anginal symptoms noted. No arrhythmias noted. Appropriate blood pressure response to dobutamine. Patient had baseline inferior posterior and lateral hypokinesis possibly representing previous myocardial infarction in 2010. During infusion all other salazar contracted normally and in fact the inferior lateral salazar improved as well. Final LVEF is 65%. No complications. Ordering Physician: Henry Bhat Referring Physician: Henry Bhat MD Performed By: Sruthi Vazquez RDCS
--- NOTE | 2017-07-25 12:07 | PCM.PROGNOTE ---
<Brianna Betancur - Last Filed: 07/25/17 12:21> Patient Problems: Active and Suspected Problems Closed right hip fracture (Acute) CHRONIC ALCOHOL USE DEPENDENCE (Acute) Acute on recurrent fall (Acute) Non-STEMI (non-ST elevated myocardial infarction) (Acute) Preoperative cardiovascular examination (Acute) Subjective: Patient seen and examined. Drowsy this morning. Mumbles incoherently without opening eyes. No acute events overnight. - Physical Exam General: No apparent distress, - - Drowsy HEENT: Atraumatic, PERRLA, EOMI, Normocephalic Oral: Dry Mucosa, - - Poor dentition Neck: Supple, No JVD, Negative Carotid Bruits Lungs: Clear to auscultation, Diminished Cardiovascular: Regular rate, Regular Rhythm, Normal S1, Normal S2, No murmurs Abdomen: Bowel Sounds Present, Soft, Non Tender, Non-Distended Extremities: No clubbing, No cyanosis, No edema, Capillary Refill Less than 3 Seconds Skin: No rashes, No breakdown Musculoskeletal: Tenderness - Right hip status post fall with right hip fracture Neurological: Cranial nerves II-XII grossly intact Psych/Mental Status: Normal Affect, Appropriate Vital Signs Temp Pulse Resp BP Pulse Ox 98.0 F 96 21 H 128/65 H 98 07/25/17 08:41 07/25/17 11:26 07/25/17 11:05 07/25/17 08:41 07/25/17 08:41 Oxygen Flow Rate (L/min) 2 Oxygen Delivery Method Nasal Cannula Weight: 50.1 kg Body Mass Index (BMI) 20.2 Intake and Output for Last 24 Hours 07/23/17 07/24/17 07/25/17 23:59 23:59 23:59 Intake Total 2942 / 2942 599 / 599 Output Total 490 / 490 550 / 550 Balance 2452 / 2452 49 / 49 Microbiology Past 72 Hours 07/25/17 03:50 Influenza Types A,B Direct FA (FARHEEN) - Final Mucosa - Nasopharyngeal 07/25/17 01:25 Streptococcus pneumoniae Antigen (M - Final Urine Catheter - Guerrero 07/25/17 01:25 Legionella Antigen - Final Urine Catheter - Guerrero Laboratory Tests Past 24 Hrs 07/24/17 07/25/17 07/25/17 12:25 01:25 05:54 WBC RBC Hgb Hct MCV MCH MCHC RDW RDW Differential Plt Count MPV Immature Gran % (Auto) Neut % (Auto) Lymph % (Auto) [place] % (Auto) Eos % (Auto) Baso % (Auto) Absolute Neuts (auto) Absolute Lymphs (auto) Total Counted Sodium 140 Potassium 4.7 Chloride 112 H Carbon Dioxide 22.0 Anion Gap 6 BUN 8 Creatinine 0.31 L Estim Creat Clear Calc 43.18 Est GFR (MDRD) Af Amer 278 Est GFR (MDRD) Non-Af 230 BUN/Creatinine Ratio 26.1 H Glucose 99 Calcium 7.8 L Troponin I 0.34 H Triglycerides 69 Cholesterol 103 LDL Cholesterol 50 VLDL Cholesterol 14 HDL Cholesterol 39 L Urine Color Yellow Urine Clarity Clear Urine pH 6.0 Ur Specific [place] 1.025 Urine Protein 15 H Urine Glucose (UA) Normal Urine Ketones Negative Urine Occult Blood 25 H Urine Nitrite Negative Urine Bilirubin Negative Urine Urobilinogen Normal Ur Leukocyte Esterase 100 H Blood Type Antibody Screen 07/25/17 07/25/17 05:54 05:54 WBC 6.0 RBC 2.60 L Hgb 10.3 L Hct 31.9 L MCV 122.7 H MCH 39.6 H MCHC 32.3 RDW 13.6 RDW Differential 58.8 H Plt Count 175 MPV 10.3 Immature Gran % (Auto) 0.500 Neut % (Auto) 69.1 Lymph % (Auto) 21.5 [place] % (Auto) 7.2 Eos % (Auto) 1.2 Baso % (Auto) 0.5 Absolute Neuts (auto) 4.1 Absolute Lymphs (auto) 1.29 Total Counted Not Reportable Sodium Potassium Chloride Carbon Dioxide Anion Gap BUN Creatinine Estim Creat Clear Calc Est GFR (MDRD) Af Amer Est GFR (MDRD) Non-Af BUN/Creatinine Ratio Glucose Calcium Troponin I Triglycerides Cholesterol LDL Cholesterol VLDL Cholesterol HDL Cholesterol Urine Color Urine Clarity Urine pH Ur Specific [place] Urine Protein Urine Glucose (UA) Urine Ketones Urine Occult Blood Urine Nitrite Urine Bilirubin Urine Urobilinogen Ur Leukocyte Esterase Blood Type A POSITIVE Antibody Screen NEGATIVE Medical Necessity - Tobacco Use Smoking Status: Current every day smoker Tobacco Use: Cigarettes Assessment/Plan Active and Suspected Problems Closed right hip fracture (Acute) CHRONIC ALCOHOL USE DEPENDENCE (Acute) Acute on recurrent fall (Acute) Non-STEMI (non-ST elevated myocardial infarction) (Acute) Preoperative cardiovascular examination (Acute) Patient is a 67-year-old female admitted 07/23/17 due to mechanical fall resulting in right hip fracture. She has a past medical history of chronic alcohol abuse, tobacco dependence, history of TIA, history of alcoholic hepatitis, CAD status post PCI ?1. 1. General debility status post mechanical fall prior to admission resulting in right hip [id number] shows right intertrochanteric fracture. Orthopedic surgery consulted. Surgery pending cardiac workup/clearance. PT/OT. 2. Indeterminate cardiac enzymes-EKG with sinus rhythm and T-wave inversion. Chest x-ray unremarkable. Cardiology consulted. Continue aspirin, statin, beta-gilmar. Patient refused stress test this morning. Stress echo ordered, pending. Awaiting results prior to going ahead with surgery. 3. CAD status post PCI-continue aspirin, statin, beta-gilmar. 4. Chronic alcohol abuse/history of alcoholic hepatitis-continue Librium taper and CIWA protocol. Continue multivitamin, thiamine and folic acid. 5. Tobacco dependence-encourage smoking cessation. Nicotine replacement patch. 6. History of TIA-continue aspirin, statin. 7. Severe protein calorie malnutrition-nutrition consult. Continue ensure supplementation. DVT prophylaxis-SCDs, pharmacologic prophylaxis on hold given plans for OR. This patient was seen by CAREY Swanson under the supervision of Dr. Llamas. <Marialuisa Llamas - Last Filed: 07/26/17 07:28> - Physical Exam Vital Signs Temp Pulse Resp BP Pulse Ox 97.0 F L 95 24 H 122/79 H 98 07/25/17 16:30 07/25/17 16:30 07/25/17 16:30 07/25/17 16:30 07/25/17 16:30 Oxygen Flow Rate (L/min) 3 Oxygen Delivery Method Nasal Cannula Weight: 50.1 kg Body Mass Index (BMI) 20.2 Intake and Output for Last 24 Hours 07/23/17 07/24/17 07/25/17 23:59 23:59 23:59 Intake Total 2942 / 2942 1099 / 1099 Output Total 490 / 490 1430 / 1430 Balance 2452 / 2452 -331 / -331 Microbiology Past 72 Hours 07/25/17 03:50 Influenza Types A,B Direct FA (FARHEEN) - Final Mucosa - Nasopharyngeal 07/25/17 01:25 Streptococcus pneumoniae Antigen (M - Final Urine Catheter - Guerrero 07/25/17 01:25 Legionella Antigen - Final Urine Catheter - Guerrero Laboratory Tests Past 24 Hrs 07/25/17 07/25/17 07/25/17 01:25 05:54 05:54 WBC 6.0 RBC 2.60 L Hgb 10.3 L Hct 31.9 L MCV 122.7 H MCH 39.6 H MCHC 32.3 RDW 13.6 RDW Differential 58.8 H Plt Count 175 MPV 10.3 Immature Gran % (Auto) 0.500 Neut % (Auto) 69.1 Lymph % (Auto) 21.5 [place] % (Auto) 7.2 Eos % (Auto) 1.2 Baso % (Auto) 0.5 Absolute Neuts (auto) 4.1 Absolute Lymphs (auto) 1.29 Total Counted Not Reportable Sodium 140 Potassium 4.7 Chloride 112 H Carbon Dioxide 22.0 Anion Gap 6 BUN 8 Creatinine 0.31 L Estim Creat Clear Calc 43.18 Est GFR (MDRD) Af Amer 278 Est GFR (MDRD) Non-Af 230 BUN/Creatinine Ratio 26.1 H Glucose 99 Calcium 7.8 L Triglycerides 69 Cholesterol 103 LDL Cholesterol 50 VLDL Cholesterol 14 HDL Cholesterol 39 L Urine Color Yellow Urine Clarity Clear Urine pH 6.0 Ur Specific [place] 1.025 Urine Protein 15 H Urine Glucose (UA) Normal Urine Ketones Negative Urine Occult Blood 25 H Urine Nitrite Negative Urine Bilirubin Negative Urine Urobilinogen Normal Ur Leukocyte Esterase 100 H Blood Type Antibody Screen 07/25/17 05:54 WBC RBC Hgb Hct MCV MCH MCHC RDW RDW Differential Plt Count MPV Immature Gran % (Auto) Neut % (Auto) Lymph % (Auto) [place] % (Auto) Eos % (Auto) Baso % (Auto) Absolute Neuts (auto) Absolute Lymphs (auto) Total Counted Sodium Potassium Chloride Carbon Dioxide Anion Gap BUN Creatinine Estim Creat Clear Calc Est GFR (MDRD) Af Amer Est GFR (MDRD) Non-Af BUN/Creatinine Ratio Glucose Calcium Triglycerides Cholesterol LDL Cholesterol VLDL Cholesterol HDL Cholesterol Urine Color Urine Clarity Urine pH Ur Specific [place] Urine Protein Urine Glucose (UA) Urine Ketones Urine Occult Blood Urine Nitrite Urine Bilirubin Urine Urobilinogen Ur Leukocyte Esterase Blood Type A POSITIVE Antibody Screen NEGATIVE Assessment/Plan Patient was seen and examined independently of next practitioner, Brianna Betancur. Attempted to see patient earlier on but had gone for dobutamine stress test; seen after the procedure. Lethargic from anesthesia. No acute events. Pain appears controlled, vitals are stable. Will manage per [facility] protocol. Code Visit Inpatient E&M: [id number] [facility] Hosp L3
--- NOTE | 2017-07-25 12:21 | PN_ITS ---
<Brianna Betancur - Last Filed: 07/25/17 12:21> Patient Problems: Active and Suspected Problems Closed right hip fracture (Acute) CHRONIC ALCOHOL USE DEPENDENCE (Acute) Acute on recurrent fall (Acute) Non-STEMI (non-ST elevated myocardial infarction) (Acute) Preoperative cardiovascular examination (Acute) Subjective: Patient seen and examined. Drowsy this morning. Mumbles incoherently without opening eyes. No acute events overnight. - Physical Exam General: No apparent distress, - - Drowsy HEENT: Atraumatic, PERRLA, EOMI, Normocephalic Oral: Dry Mucosa, - - Poor dentition Neck: Supple, No JVD, Negative Carotid Bruits Lungs: Clear to auscultation, Diminished Cardiovascular: Regular rate, Regular Rhythm, Normal S1, Normal S2, No murmurs Abdomen: Bowel Sounds Present, Soft, Non Tender, Non-Distended Extremities: No clubbing, No cyanosis, No edema, Capillary Refill Less than 3 Seconds Skin: No rashes, No breakdown Musculoskeletal: Tenderness - Right hip status post fall with right hip fracture Neurological: Cranial nerves II-XII grossly intact Psych/Mental Status: Normal Affect, Appropriate Vital Signs Temp Pulse Resp BP Pulse Ox 98.0 F 96 21 H 128/65 H 98 07/25/17 08:41 07/25/17 11:26 07/25/17 11:05 07/25/17 08:41 07/25/17 08:41 Oxygen Flow Rate (L/min) 2 Oxygen Delivery Method Nasal Cannula Weight: 50.1 kg Body Mass Index (BMI) 20.2 Intake and Output for Last 24 Hours 07/23/17 07/24/17 07/25/17 23:59 23:59 23:59 Intake Total 2942 / 2942 599 / 599 Output Total 490 / 490 550 / 550 Balance 2452 / 2452 49 / 49 Microbiology Past 72 Hours 07/25/17 03:50 Influenza Types A,B Direct FA (FARHEEN) - Final Mucosa - Nasopharyngeal 07/25/17 01:25 Streptococcus pneumoniae Antigen (M - Final Urine Catheter - Guerrero 07/25/17 01:25 Legionella Antigen - Final Urine Catheter - Guerrero Laboratory Tests Past 24 Hrs 07/24/17 07/25/17 07/25/17 12:25 01:25 05:54 WBC RBC Hgb Hct MCV MCH MCHC RDW RDW Differential Plt Count MPV Immature Gran % (Auto) Neut % (Auto) Lymph % (Auto) [place] % (Auto) Eos % (Auto) Baso % (Auto) Absolute Neuts (auto) Absolute Lymphs (auto) Total Counted Sodium 140 Potassium 4.7 Chloride 112 H Carbon Dioxide 22.0 Anion Gap 6 BUN 8 Creatinine 0.31 L Estim Creat Clear Calc 43.18 Est GFR (MDRD) Af Amer 278 Est GFR (MDRD) Non-Af 230 BUN/Creatinine Ratio 26.1 H Glucose 99 Calcium 7.8 L Troponin I 0.34 H Triglycerides 69 Cholesterol 103 LDL Cholesterol 50 VLDL Cholesterol 14 HDL Cholesterol 39 L Urine Color Yellow Urine Clarity Clear Urine pH 6.0 Ur Specific Ramsey 1.025 Urine Protein 15 H Urine Glucose (UA) Normal Urine Ketones Negative Urine Occult Blood 25 H Urine Nitrite Negative Urine Bilirubin Negative Urine Urobilinogen Normal Ur Leukocyte Esterase 100 H Blood Type Antibody Screen 07/25/17 07/25/17 05:54 05:54 WBC 6.0 RBC 2.60 L Hgb 10.3 L Hct 31.9 L MCV 122.7 H MCH 39.6 H MCHC 32.3 RDW 13.6 RDW Differential 58.8 H Plt Count 175 MPV 10.3 Immature Gran % (Auto) 0.500 Neut % (Auto) 69.1 Lymph % (Auto) 21.5 Verm[place] % (Auto) 7.2 Eos % (Auto) 1.2 Baso % (Auto) 0.5 Absolute Neuts (auto) 4.1 Absolute Lymphs (auto) 1.29 Total Counted Not Reportable Sodium Potassium Chloride Carbon Dioxide Anion Gap BUN Creatinine Estim Creat Clear Calc Est GFR (MDRD) Af Amer Est GFR (MDRD) Non-Af BUN/Creatinine Ratio Glucose Calcium Troponin I Triglycerides Cholesterol LDL Cholesterol VLDL Cholesterol HDL Cholesterol Urine Color Urine Clarity Urine pH Ur Specific Ramsey Urine Protein Urine Glucose (UA) Urine Ketones Urine Occult Blood Urine Nitrite Urine Bilirubin Urine Urobilinogen Ur Leukocyte Esterase Blood Type A POSITIVE Antibody Screen NEGATIVE Medical Necessity - Tobacco Use Smoking Status: Current every day smoker Tobacco Use: Cigarettes Assessment/Plan Active and Suspected Problems Closed right hip fracture (Acute) CHRONIC ALCOHOL USE DEPENDENCE (Acute) Acute on recurrent fall (Acute) Non-STEMI (non-ST elevated myocardial infarction) (Acute) Preoperative cardiovascular examination (Acute) Patient is a 67-year-old female admitted 07/23/17 due to mechanical fall resulting in right hip fracture. She has a past medical history of chronic alcohol abuse, tobacco dependence, history of TIA, history of alcoholic hepatitis, CAD status post PCI ?1. 1. General debility status post mechanical fall prior to admission resulting in right hip [id number] shows right intertrochanteric fracture. Orthopedic surgery consulted. Surgery pending cardiac workup/clearance. PT/OT. 2. Indeterminate cardiac enzymes-EKG with sinus rhythm and T-wave inversion. Chest x-ray unremarkable. Cardiology consulted. Continue aspirin, statin, beta -gilmar. Patient refused stress test this morning. Stress echo ordered, pending. Awaiting results prior to going ahead with surgery. 3. CAD status post PCI-continue aspirin, statin, beta-gilmar. 4. Chronic alcohol abuse/history of alcoholic hepatitis-continue Librium taper and CIWA protocol. Continue multivitamin, thiamine and folic acid. 5. Tobacco dependence-encourage smoking cessation. Nicotine replacement patch. 6. History of TIA-continue aspirin, statin. 7. Severe protein calorie malnutrition-nutrition consult. Continue ensure supplementation. DVT prophylaxis-SCDs, pharmacologic prophylaxis on hold given plans for OR. This patient was seen by CAREY Swanson under the supervision of Dr. Llamas. <Marialuisa Llamas - Last Filed: 07/26/17 07:28> - Physical Exam Vital Signs Temp Pulse Resp BP Pulse Ox 97.0 F L 95 24 H 122/79 H 98 07/25/17 16:30 07/25/17 16:30 07/25/17 16:30 07/25/17 16:30 07/25/17 16:30 Oxygen Flow Rate (L/min) 3 Oxygen Delivery Method Nasal Cannula Weight: 50.1 kg Body Mass Index (BMI) 20.2 Intake and Output for Last 24 Hours 07/23/17 07/24/17 07/25/17 23:59 23:59 23:59 Intake Total 2942 / 2942 1099 / 1099 Output Total 490 / 490 1430 / 1430 Balance 2452 / 2452 -331 / -331 Microbiology Past 72 Hours 07/25/17 03:50 Influenza Types A,B Direct FA (FARHEEN) - Final Mucosa - Nasopharyngeal 07/25/17 01:25 Streptococcus pneumoniae Antigen (M - Final Urine Catheter - Guerrero 07/25/17 01:25 Legionella Antigen - Final Urine Catheter - Guerrero Laboratory Tests Past 24 Hrs 07/25/17 07/25/17 07/25/17 01:25 05:54 05:54 WBC 6.0 RBC 2.60 L Hgb 10.3 L Hct 31.9 L MCV 122.7 H MCH 39.6 H MCHC 32.3 RDW 13.6 RDW Differential 58.8 H Plt Count 175 MPV 10.3 Immature Gran % (Auto) 0.500 Neut % (Auto) 69.1 Lymph % (Auto) 21.5 Vermillion % (Auto) 7.2 Eos % (Auto) 1.2 Baso % (Auto) 0.5 Absolute Neuts (auto) 4.1 Absolute Lymphs (auto) 1.29 Total Counted Not Reportable Sodium 140 Potassium 4.7 Chloride 112 H Carbon Dioxide 22.0 Anion Gap 6 BUN 8 Creatinine 0.31 L Estim Creat Clear Calc 43.18 Est GFR (MDRD) Af Amer 278 Est GFR (MDRD) Non-Af 230 BUN/Creatinine Ratio 26.1 H Glucose 99 Calcium 7.8 L Triglycerides 69 Cholesterol 103 LDL Cholesterol 50 VLDL Cholesterol 14 HDL Cholesterol 39 L Urine Color Yellow Urine Clarity Clear Urine pH 6.0 Ur Specific Ramsey 1.025 Urine Protein 15 H Urine Glucose (UA) Normal Urine Ketones Negative Urine Occult Blood 25 H Urine Nitrite Negative Urine Bilirubin Negative Urine Urobilinogen Normal Ur Leukocyte Esterase 100 H Blood Type Antibody Screen 07/25/17 05:54 WBC RBC Hgb Hct MCV MCH MCHC RDW RDW Differential Plt Count MPV Immature Gran % (Auto) Neut % (Auto) Lymph % (Auto) Vermillion % (Auto) Eos % (Auto) Baso % (Auto) Absolute Neuts (auto) Absolute Lymphs (auto) Total Counted Sodium Potassium Chloride Carbon Dioxide Anion Gap BUN Creatinine Estim Creat Clear Calc Est GFR (MDRD) Af Amer Est GFR (MDRD) Non-Af BUN/Creatinine Ratio Glucose Calcium Triglycerides Cholesterol LDL Cholesterol VLDL Cholesterol HDL Cholesterol Urine Color Urine Clarity Urine pH Ur Specific Ramsey Urine Protein Urine Glucose (UA) Urine Ketones Urine Occult Blood Urine Nitrite Urine Bilirubin Urine Urobilinogen Ur Leukocyte Esterase Blood Type A POSITIVE Antibody Screen NEGATIVE Assessment/Plan Patient was seen and examined independently of next practitioner, Brianna Betancur. Attempted to see patient earlier on but had gone for dobutamine stress test; seen after the procedure. Lethargic from anesthesia. No acute events. Pain appears controlled, vitals are stable. Will manage per [facility] protocol. Code Visit Inpatient E&M: [id number] [facility] L3
--- NOTE | 2017-07-25 13:20 | NURSING ---
Attempted to call pt's son, Oscar, at this time to update on surgery time. No answer to [phone] and voicemail box full, unable to leave message.
--- NOTE | 2017-07-25 13:30 | NURSING ---
Report called to Marnie in PACU at this time. Discussed pt's confusion this afternoon and this nurses attempt to call pt's son, Oscar, to discuss surgery but unable to reach son and voicemail box was full and unable to leave message.
[2017-07-25] MEDS: Cefazolin 2 GM in 0.9% Normal Saline 100 ML IV (14:35)
[2017-07-25] MEDS: 0.9% Normal Saline 1,000 ML 75 ML IV (14:45)
--- NOTE | 2017-07-25 14:50 | RAD_ITS ---
STUDY: X-RAY - PELVIS AND RIGHT HIP REASON FOR EXAM: Female, 67 years old. Left hip screw TECHNIQUE: Radiological exam, hip, unilateral, with pelvis when performed; 2 or 3 views. COMPARISON: 07/15/2017 FINDINGS: Fluoroscopic guidance was provided during placement of a left hip screw spanning a previously seen intertrochanteric fracture. The hardware is intact and alignment is satisfactory. RAD/Hip Min 2 Views (Portable) IMPRESSION: Fluoroscopic guidance during placement of a left hip screw. Electronically Signed: Tom Perdue, at 16:02 EDT Tel , Service support ,
--- NOTE | 2017-07-25 15:08 | CASEMGMT ---
Social Work Note SW attempted to see pt to discuss discharge planning and to confirm with pt that she is interested in inpatient rehab at discharge. Pt not in room or on floor at this time. SW will follow up with pt as time allows or tomorrow to discuss discharge plans. Plan: TBD. 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
--- NOTE | 2017-07-25 15:42 | OP.PN_ITS ---
Immediate Post-Op Note Date of Procedure: 07/25/17 Primary Surgeon/Physician: Mert Gifford DO regulatory compliance director: None Pre-Operative Diagnosis: Right hip displaced intertrochanteric femur fracture closed Post-Operative Diagnosis: Same as above Surgery/Procedure Performed:: Right hip cephalo-medullary nail-Emery gamma Description of Surgical Findings:: See dictation Estimated Blood Loss: 50 Specimen's removed: None Type of Anesthesia:: General ASA Class: ASA3 Severe Disease - Admit VTE Documentation VTE Present on Admission: No VTE Mechan Device Prophylaxis: SCD's, Knee High JUANCARLOS Hose VTE Pharm Prophylaxis ordered?: Yes
--- NOTE | 2017-07-25 15:42 | PCM.OPRPT ---
Report of Operation Date of Procedure: 07/25/17 Pre-Operative Diagnosis: Right hip displaced intertrochanteric femur fracture closed Post-Operative Diagnosis: Same as above Surgery/Procedure Performed:: Right hip cephalo-medullary nail-[place] gamma Description of Surgical Findings:: 67-year-old female with multiple medical comorbidities sustained a fall from standing height over the weekend resulting in a right closed displaced intertrochanteric femur fracture. Patient was evaluated by the hospitalist team and also by the cardiology team who cleared her for surgical intervention. Patient was counseled and consented for the aforementioned procedure. Patient was met in the holding area where the right lower extremity was marked and identified by the with surgeon. Patient was taken the operating room in satisfactory condition with somewhat to place to identify patient operative procedure and limb. She received 2 g Ancef. Patient underwent a successful intubation. She was then placed into the fracture table with a well-padded peroneal post. The left lower extremity was placed in the lithotomy position. The right lower extremity was placed into the traction boot. Using C-arm visualization in multiple planes the patient underwent a gentle closed reduction to near anatomic positioning of her intertrochanteric femur fracture. At that point time the patient was then prepped and draped in usual fashion. Using C-arm visualization her proximal incision was identified roughly 2 cm 3 cm above the right greater trochanter. The IT band was longitudinally split. Guidewire was then placed across the trochanter in appropriate anatomic position AP and lateral planes. It was then driven overpower using standard technique again it was confirmed in appropriate position using C-arm visualization. We then broached reamed using standard technique. Guidewire was then placed and confirmed in position. We then reamed accordingly up to a 12.5 mm reamer in anticipation of placing a 11 mm 125? short nail using the [place] gamma system. At that point time the nail was then introduced placed down the femur using standard technique. Proximal screw fixation was then placed in appropriate position to the inferior cortex of the femoral neck and then under C-arm visualization guidewire placed in a near center center position. The overall length was roughly 90 mm. At that point time a set screw was then placed proximally provisionally until the proximal locking screw had been placed. Proximal locking screw was then placed using standard technique just over the subchondral bone of the femoral head in both AP and lateral planes. Tip to apex distance was acceptable. At that point time it was locked accordingly to prevent rotation and slide. We then turned our attention to our distal interlock. Again using our guide system a small incision was made roughly 1 cm in overall length. Appropriate drilling taking placing a standard AO technique. Screw measured roughly 35 mm in overall length. It was then seated without difficulty. Confirmation of appropriate positioning was confirmed in AP and lateral planes to all screws and alignment was maintained in near anatomic positioning. Wounds were then copiously irrigated using normal saline solution. Proximal incision was closed with a running Krak?w technique of #1 Vicryl 3-0 Vicryl and then staple technique. The distal 2 incisions were closed with 3-0 Vicryl and staple technique. Patient was dressed with Xeroform 4 x 4's ABDs and Medipore tape. Traction was let down. I was scrubbed and available time during our procedure. We had no drains or complications. Implants included the Emery gamma cephalo-medullary nail system. 125? angle short nail 90 mm screw and a 35 distal interlock. We did use a proximal locking screw. Patient be admitted to the floor for 24 hours of IV antibiotics appropriate IV and p.o. pain medication and DVT prophylaxis to include SCDs teds and 81 mg p.o. twice daily of aspirin unless changed by the hospitalist team. Patient is otherwise weightbearing as tolerated. Any major issues please contact. scientific publications editor: None Type of Anesthesia:: General Specimen's removed: None Estimated Blood Loss (mL): 50 Grafts/Implants Used: Emery gamma nail with proximal locking screw - Complications None - Admit VTE Documentation VTE Present on Admission: No VTE Mechan Device Prophylaxis: SCD's, Knee High JUANCARLOS Hose VTE Pharm Prophylaxis ordered?: Yes
--- NOTE | 2017-07-25 15:47 | OP.PCM_ITS ---
Report of Operation Date of Procedure: 07/25/17 Pre-Operative Diagnosis: Right hip displaced intertrochanteric femur fracture closed Post-Operative Diagnosis: Same as above Surgery/Procedure Performed:: Right hip cephalo-medullary nail-[place] gamma Description of Surgical Findings:: 67-year-old female with multiple medical comorbidities sustained a fall from standing height over the weekend resulting in a right closed displaced intertrochanteric femur fracture. Patient was evaluated by the hospitalist team and also by the cardiology team who cleared her for surgical intervention. Patient was counseled and consented for the aforementioned procedure. Patient was met in the holding area where the right lower extremity was marked and identified by the with surgeon. Patient was taken the operating room in satisfactory condition with somewhat to place to identify patient operative procedure and limb. She received 2 g Ancef. Patient underwent a successful intubation. She was then placed into the fracture table with a well-padded peroneal post. The left lower extremity was placed in the lithotomy position. The right lower extremity was placed into the traction boot. Using C-arm visualization in multiple planes the patient underwent a gentle closed reduction to near anatomic positioning of her intertrochanteric femur fracture. At that point time the patient was then prepped and draped in usual fashion. Using C-arm visualization her proximal incision was identified roughly 2 cm 3 cm above the right greater trochanter. The IT band was longitudinally split. Guidewire was then placed across the trochanter in appropriate anatomic position AP and lateral planes. It was then driven overpower using standard technique again it was confirmed in appropriate position using C-arm visualization. We then broached reamed using standard technique. Guidewire was then placed and confirmed in position. We then reamed accordingly up to a 12.5 mm reamer in anticipation of placing a 11 mm 125 ? short nail using the Emery gamma system. At that point time the nail was then introduced placed down the femur using standard technique. Proximal screw fixation was then placed in appropriate position to the inferior cortex of the femoral neck and then under C-arm visualization guidewire placed in a near center center position. The overall length was roughly 90 mm. At that point time a set screw was then placed proximally provisionally until the proximal locking screw had been placed. Proximal locking screw was then placed using standard technique just over the subchondral bone of the femoral head in both AP and lateral planes. Tip to apex distance was acceptable. At that point time it was locked accordingly to prevent rotation and slide. We then turned our attention to our distal interlock. Again using our guide system a small incision was made roughly 1 cm in overall length. Appropriate drilling taking placing a standard AO technique. Screw measured roughly 35 mm in overall length. It was then seated without difficulty. Confirmation of appropriate positioning was confirmed in AP and lateral planes to all screws and alignment was maintained in near anatomic positioning. Wounds were then copiously irrigated using normal saline solution. Proximal incision was closed with a running Krak?w technique of #1 Vicryl 3-0 Vicryl and then staple technique. The distal 2 incisions were closed with 3-0 Vicryl and staple technique. Patient was dressed with Xeroform 4 x 4's ABDs and Medipore tape. Traction was let down. I was scrubbed and available time during our procedure. We had no drains or complications. Implants included the [place] gamma cephalo-medullary nail system. 125? angle short nail 90 mm screw and a 35 distal interlock. We did use a proximal locking screw. Patient be admitted to the floor for 24 hours of IV antibiotics appropriate IV and p.o. pain medication and DVT prophylaxis to include SCDs teds and 81 mg p.o. twice daily of aspirin unless changed by the hospitalist team. Patient is otherwise weightbearing as tolerated. Any major issues please contact. multimedia engineer: None Type of Anesthesia:: General Specimen's removed: None Estimated Blood Loss (mL): 50 Grafts/Implants Used: [place] gamma nail with proximal locking screw - Complications None - Admit VTE Documentation VTE Present on Admission: No VTE Mechan Device Prophylaxis: SCD's, Knee High JUANCARLOS Hose VTE Pharm Prophylaxis ordered?: Yes
--- NOTE | 2017-07-25 15:55 | RAD_ITS ---
STUDY: X-RAY - PELVIS AND RIGHT HIP REASON FOR EXAM: Female, 67 years old. Postop TECHNIQUE: Radiological exam, hip, unilateral, with pelvis when performed; 2 or 3 views. COMPARISON: 07/23/2017 FINDINGS: There has been interval placement of a right sided hip screw spanning the previously seen intertrochanteric fracture. The hardware is intact and alignment is satisfactory. There are no radiodense foreign bodies. RAD/Hip Min 2 Views (Portable) IMPRESSION: Interval placement of a right sided hip screw with intact hardware and satisfactory alignment. Electronically Signed: Tom Perdue, at 16:25 EDT Tel , Service support ,
[2017-07-25] MEDS: Ketorolac 15 MG/ML Vial IV (16:06)
[2017-07-25] MEDS: hydrALAZINE 20 MG/ML Vial 10 MG IV (21:19)
[2017-07-25] MEDS: Cefazolin 1 GM/50 ML BAG IV (22:16)
[2017-07-26] VITALS (20 sets, daily range): BP systolic 119–164; BP diastolic 67–98; PULSE 87–123; RESP 16–30; TEMP 36.4–37.2; O2SAT 94–98
[2017-07-26] MEDS: Morphine 4 MG/ML Syringe IV ×3 (00:14→22:36)
[2017-07-26] MEDS: 0.9% NaCl Peripheral Flush Adult/Peds IV ×4 (00:14→21:39)
[2017-07-26] MEDS: 0.9% Normal Saline 1,000 ML 75 ML IV ×2 (03:23→17:15)
[2017-07-26] MEDS: LORazepam 2 MG/ML Syringe IV ×2 (03:28→21:38)
[2017-07-26] MEDS: Cefazolin 1 GM/50 ML BAG IV (05:32)
[2017-07-26] MEDS: Piperacil/Tazobactam 3.375 GM/50 ML ML IV ×3 (06:16→22:39)
--- NOTE | 2017-07-26 06:18 | NURSING ---
Pt refusing turns for nightshift; yelling out in pain at times but when asked if she wanted pain medication she stated No and told this RN to leave her room.
[2017-07-26 07:04] LABS: Absolute Lymphocyte Count 1.07 X10^3/ul (0.83-4.51); Absolute Neutrophil Count 5.9 X10^3/uL (2.0-7.7); Basophil# 0.03 X10^3/uL; Basophil% 0.4 % (0-1); Eosinophil# 0.03 X10^3/uL; Eosinophils% 0.4 % (0-5); Hemoglobin 9.2 g/dl (12.0-15.0); Lymphocyte # 1.07 X10^3/ul (4.0); Lymphocyte % 14.4 % (19-41); Mean Corp Hgb Conc 32.9 g/gl (32-36); Mean Corpuscular Hgb 38.8 pg (27.0-32.0); Mean Corpuscular Volume 118.1 fL (81-99); Monocyte# 0.41 X10^3/uL; Monocyte% 5.5 % (0-10); Neutrophil # 5.87 X10^3/uL (2.7-7.7); Platelet Count 181 K/mm3 (150-450); RBC Distribution Width CV 13.9 % (11.6-14.6); RBC Distribution Width SD 59.8 fl (35.1-43.9); Red Blood Count 2.37 M/mm3 (4.2-5.4); White Blood Count 7.4 K/mm3 (4.4-11.0)
[2017-07-26 07:14] LABS: Anion Gap 8 (5-15); BUN 6 mg/dL (7-18); BUN/Creat Ratio 17.1 RATIO (10-20); Calcium,Total 7.9 mg/dL (8.5-10.1); Chloride 106 mmol/L (98-107); Creatinine, Serum 0.35 mg/dL (0.55-1.02); EST Glomerular Filtration Rate 197 mL/min (>60); Est Glom Filt Rate - Afr Amer 239 mL/min (>60); Estimated Creatinine Clearance 43.18 ml/min; Glucose 97 mg/dL (74-106); Potassium 4.3 mmol/L (3.5-5.1); Sodium Level 139 mmol/L (136-145)
[2017-07-26 07:24] LABS: POSITIVE COUNT NO; POSITIVE DIFFERENTIAL NO; POSITIVE MORPHOLOGY NO
[2017-07-26] MEDS: Ipratropium/Albuterol Sulfate 3 ML AMPUL.NEB INHALATION ×2 (07:41→11:00)
[2017-07-26] MEDS: Na Biphos/Potassium Phosphate PACKET 1 PACKET PO ×4 (10:17→21:38)
[2017-07-26] MEDS: Acetaminophen 325 MG Tablet 650 MG PO ×2 (10:17→17:24)
[2017-07-26] MEDS: Multivitamins,Ther W-Minerals Tablet 1 TABLET PO (10:17)
[2017-07-26] MEDS: Folic Acid 1 MG Tablet PO (10:18)
[2017-07-26] MEDS: Metoprolol Tartrate 25 MG Tablet 12.5 MG PO ×2 (10:18→21:38)
[2017-07-26] MEDS: Thiamine Hydrochloride 100 MG Tablet PO (10:19)
--- NOTE | 2017-07-26 10:19 | PCM.PROGNOTE ---
<Brianna Betancur - Last Filed: 07/26/17 10:39> Patient Problems: Active and Suspected Problems Closed right hip fracture (Acute) CHRONIC ALCOHOL USE DEPENDENCE (Acute) Acute on recurrent fall (Acute) Non-STEMI (non-ST elevated myocardial infarction) (Acute) Preoperative cardiovascular examination (Acute) Subjective: Patient seen and examined. Complains of significant right hip pain. Patient appears uncomfortable and is moaning during assessment. Denies other current complaints. - Physical Exam General: Alert, Cooperative, No apparent distress HEENT: Atraumatic, PERRLA, EOMI, Normocephalic Oral: Dry Mucosa Neck: Supple, No JVD, Negative Carotid Bruits Lungs: Clear to auscultation, Diminished Cardiovascular: Regular rate, Regular Rhythm, Normal S1, Normal S2, No murmurs Abdomen: Bowel Sounds Present, Soft, Non Tender, Non-Distended Extremities: No clubbing, No cyanosis, No edema, Capillary Refill Less than 3 Seconds Skin: No rashes, No breakdown, - - Right hip postop dressing dry and intact. Musculoskeletal: Tenderness - Right hip Neurological: Cranial nerves II-XII grossly intact Psych/Mental Status: Restless Vital Signs Temp Pulse Resp BP Pulse Ox 98.3 F 119 H 30 H 164/91 H 95 07/26/17 09:17 07/26/17 09:17 07/26/17 09:17 07/26/17 09:17 07/26/17 09:17 Oxygen Flow Rate (L/min) 2.5 Oxygen Delivery Method Nasal Cannula Weight: 50.1 kg Body Mass Index (BMI) 20.2 Intake and Output for Last 24 Hours 07/24/17 07/25/17 07/26/17 23:59 23:59 23:59 Intake Total 2942 / 2942 1266 / 1266 1039 / 1039 Output Total 490 / 490 1480 / 1480 575 / 575 Balance 2452 / 2452 -214 / -214 464 / 464 Microbiology Past 72 Hours 07/25/17 03:50 Influenza Types A,B Direct FA (FARHEEN) - Final Mucosa - Nasopharyngeal 07/25/17 01:25 Streptococcus pneumoniae Antigen (M - Final Urine Catheter - [facility] 07/25/17 01:25 Legionella Antigen - Final Urine Catheter - [facility] Laboratory Tests Past 24 Hrs 07/26/17 07/26/17 06:20 06:20 WBC 7.4 RBC 2.37 L Hgb 9.2 L Hct 28.0 L MCV 118.1 H MCH 38.8 H MCHC 32.9 RDW 13.9 RDW Differential 59.8 H Plt Count 181 MPV 10.0 Immature Gran % (Auto) 0.300 Neut % (Auto) 79.0 H Lymph % (Auto) 14.4 L Sac % (Auto) 5.5 Eos % (Auto) 0.4 Baso % (Auto) 0.4 Absolute Neuts (auto) 5.9 Absolute Lymphs (auto) 1.07 Total Counted Not Reportable Sodium 139 Potassium 4.3 Chloride 106 Carbon Dioxide 25.0 Anion Gap 8 BUN 6 L Creatinine 0.35 L Estim Creat Clear Calc 43.18 Est GFR (MDRD) Af Amer 239 Est GFR (MDRD) Non-Af 197 BUN/Creatinine Ratio 17.1 Glucose 97 Calcium 7.9 L Medical Necessity - Tobacco Use Smoking Status: Current every day smoker Tobacco Use: Cigarettes Assessment/Plan Active and Suspected Problems Closed right hip fracture (Acute) CHRONIC ALCOHOL USE DEPENDENCE (Acute) Acute on recurrent fall (Acute) Non-STEMI (non-ST elevated myocardial infarction) (Acute) Preoperative cardiovascular examination (Acute) Patient is a 67-year-old female admitted 07/23/17 due to mechanical fall resulting in right hip fracture. She has a past medical history of chronic alcohol abuse, tobacco dependence, history of TIA, history of alcoholic hepatitis, CAD status post PCI ?1. 1. General debility status post mechanical fall prior to admission resulting in right hip [id number] shows right intertrochanteric fracture. Patient underwent surgical repair of right hip fracture 07/25/[address] Gifford. PT/OT. Continue PRN pain regimen. IS. Rehab VS SNF at [place] pending PT evaluation. 2. Indeterminate cardiac enzymes-EKG with sinus rhythm and T-wave inversion. Chest x-ray unremarkable. Cardiology consulted. Continue aspirin, statin, beta-gilmar. Patient underwent stress echo yesterday which was reported to be normal however the official report is not yet in the computer. 3. CAD status post PCI-continue aspirin, statin, beta-gilmar. 4. Chronic alcohol abuse/history of alcoholic hepatitis-continue Librium taper and CIWA protocol. Continue multivitamin, thiamine and folic acid. 5. Tobacco dependence-encourage smoking cessation. Nicotine replacement patch. 6. History of TIA-continue aspirin, statin. 7. Severe protein calorie malnutrition-nutrition consult. Continue ensure supplementation. 8. Dysphagia-speech therapy consulted. Recommending mechanical soft consistency with thin liquids. DVT prophylaxis-SCDs, aspirin 81 mg twice daily per ortho recommendations. Discharge planning: Rehab vs SNF pending PT eval. This patient was seen by CAREY Swanson under the supervision of Dr. Llamas. <Marialuisa Llamas - Last Filed: 07/26/17 14:15> - Physical Exam Vital Signs Temp Pulse Resp BP Pulse Ox 98.6 F 94 30 H 136/74 H 95 07/26/17 13:36 07/26/17 13:36 07/26/17 13:36 07/26/17 13:36 07/26/17 13:36 Oxygen Flow Rate (L/min) 2 Oxygen Delivery Method Nasal Cannula Weight: 50.1 kg Body Mass Index (BMI) 20.2 Intake and Output for Last 24 Hours 07/24/17 07/25/17 07/26/17 23:59 23:59 23:59 Intake Total 2942 / 2942 1266 / 1266 1539 / 1539 Output Total 490 / 490 1480 / 1480 875 / 875 Balance 2452 / 2452 -214 / -214 664 / 664 Microbiology Past 72 Hours 07/25/17 03:50 Influenza Types A,B Direct FA (FARHEEN) - Final Mucosa - Nasopharyngeal 07/25/17 01:25 Streptococcus pneumoniae Antigen (M - Final Urine Catheter - [facility] 07/25/17 01:25 Legionella Antigen - Final Urine Catheter - [facility] Laboratory Tests Past 24 Hrs 07/26/17 07/26/17 06:20 06:20 WBC 7.4 RBC 2.37 L Hgb 9.2 L Hct 28.0 L MCV 118.1 H MCH 38.8 H MCHC 32.9 RDW 13.9 RDW Differential 59.8 H Plt Count 181 MPV 10.0 Immature Gran % (Auto) 0.300 Neut % (Auto) 79.0 H Lymph % (Auto) 14.4 L Sac % (Auto) 5.5 Eos % (Auto) 0.4 Baso % (Auto) 0.4 Absolute Neuts (auto) 5.9 Absolute Lymphs (auto) 1.07 Total Counted Not Reportable Sodium 139 Potassium 4.3 Chloride 106 Carbon Dioxide 25.0 Anion Gap 8 BUN 6 L Creatinine 0.35 L Estim Creat Clear Calc 43.18 Est GFR (MDRD) Af Amer 239 Est GFR (MDRD) Non-Af 197 BUN/Creatinine Ratio 17.1 Glucose 97 Calcium 7.9 L Assessment/Plan Patient was seen and examined independently. She is much awake today. Complains of pain in the right hip. Denies any dizziness or shortness of breath. No acute events per telemetry. Vitals reviewed. Aware of tachycardia, which is due to pain and alcohol withdrawal. On alcohol withdrawal protocol with Librium and Ativan. Labs reviewed, patient appears stable. We will continue to manage as documented above and assessment and plan. Will DC Librium taper and continue only on the Ativan protocol to avoid oversedation. We will wait on case management to help us with discharge planning for rehab. Code Visit Inpatient E&M: [id number] Subs Hosp L2
[2017-07-26] MEDS: Aspirin E.C. 81 MG Tablet PO ×2 (10:23→17:16)
--- NOTE | 2017-07-26 10:39 | PN_ITS ---
<Brianna Betancur - Last Filed: 07/26/17 10:39> Patient Problems: Active and Suspected Problems Closed right hip fracture (Acute) CHRONIC ALCOHOL USE DEPENDENCE (Acute) Acute on recurrent fall (Acute) Non-STEMI (non-ST elevated myocardial infarction) (Acute) Preoperative cardiovascular examination (Acute) Subjective: Patient seen and examined. Complains of significant right hip pain. Patient appears uncomfortable and is moaning during assessment. Denies other current complaints. - Physical Exam General: Alert, Cooperative, No apparent distress HEENT: Atraumatic, PERRLA, EOMI, Normocephalic Oral: Dry Mucosa Neck: Supple, No JVD, Negative Carotid Bruits Lungs: Clear to auscultation, Diminished Cardiovascular: Regular rate, Regular Rhythm, Normal S1, Normal S2, No murmurs Abdomen: Bowel Sounds Present, Soft, Non Tender, Non-Distended Extremities: No clubbing, No cyanosis, No edema, Capillary Refill Less than 3 Seconds Skin: No rashes, No breakdown, - - Right hip postop dressing dry and intact. Musculoskeletal: Tenderness - Right hip Neurological: Cranial nerves II-XII grossly intact Psych/Mental Status: Restless Vital Signs Temp Pulse Resp BP Pulse Ox 98.3 F 119 H 30 H 164/91 H 95 07/26/17 09:17 07/26/17 09:17 07/26/17 09:17 07/26/17 09:17 07/26/17 09:17 Oxygen Flow Rate (L/min) 2.5 Oxygen Delivery Method Nasal Cannula Weight: 50.1 kg Body Mass Index (BMI) 20.2 Intake and Output for Last 24 Hours 07/24/17 07/25/17 07/26/17 23:59 23:59 23:59 Intake Total 2942 / 2942 1266 / 1266 1039 / 1039 Output Total 490 / 490 1480 / 1480 575 / 575 Balance 2452 / 2452 -214 / -214 464 / 464 Microbiology Past 72 Hours 07/25/17 03:50 Influenza Types A,B Direct FA (FARHEEN) - Final Mucosa - Nasopharyngeal 07/25/17 01:25 Streptococcus pneumoniae Antigen (M - Final Urine Catheter - [facility] 07/25/17 01:25 Legionella Antigen - Final Urine Catheter - [facility] Laboratory Tests Past 24 Hrs 07/26/17 07/26/17 06:20 06:20 WBC 7.4 RBC 2.37 L Hgb 9.2 L Hct 28.0 L MCV 118.1 H MCH 38.8 H MCHC 32.9 RDW 13.9 RDW Differential 59.8 H Plt Count 181 MPV 10.0 Immature Gran % (Auto) 0.300 Neut % (Auto) 79.0 H Lymph % (Auto) 14.4 L [place] % (Auto) 5.5 Eos % (Auto) 0.4 Baso % (Auto) 0.4 Absolute Neuts (auto) 5.9 Absolute Lymphs (auto) 1.07 Total Counted Not Reportable Sodium 139 Potassium 4.3 Chloride 106 Carbon Dioxide 25.0 Anion Gap 8 BUN 6 L Creatinine 0.35 L Estim Creat Clear Calc 43.18 Est GFR (MDRD) Af Amer 239 Est GFR (MDRD) Non-Af 197 BUN/Creatinine Ratio 17.1 Glucose 97 Calcium 7.9 L Medical Necessity - Tobacco Use Smoking Status: Current every day smoker Tobacco Use: Cigarettes Assessment/Plan Active and Suspected Problems Closed right hip fracture (Acute) CHRONIC ALCOHOL USE DEPENDENCE (Acute) Acute on recurrent fall (Acute) Non-STEMI (non-ST elevated myocardial infarction) (Acute) Preoperative cardiovascular examination (Acute) Patient is a 67-year-old female admitted 07/23/17 due to mechanical fall resulting in right hip fracture. She has a past medical history of chronic alcohol abuse, tobacco dependence, history of TIA, history of alcoholic hepatitis, CAD status post PCI ?1. 1. General debility status post mechanical fall prior to admission resulting in right hip [id number] shows right intertrochanteric fracture. Patient underwent surgical repair of right hip fracture 07/25/[address] Gifford. PT/OT. Continue PRN pain regimen. IS. Rehab VS SNF at [place] pending PT evaluation. 2. Indeterminate cardiac enzymes-EKG with sinus rhythm and T-wave inversion. Chest x-ray unremarkable. Cardiology consulted. Continue aspirin, statin, beta -gilmar. Patient underwent stress echo yesterday which was reported to be normal however the official report is not yet in the computer. 3. CAD status post PCI-continue aspirin, statin, beta-gilmar. 4. Chronic alcohol abuse/history of alcoholic hepatitis-continue Librium taper and CIWA protocol. Continue multivitamin, thiamine and folic acid. 5. Tobacco dependence-encourage smoking cessation. Nicotine replacement patch. 6. History of TIA-continue aspirin, statin. 7. Severe protein calorie malnutrition-nutrition consult. Continue ensure supplementation. 8. Dysphagia-speech therapy consulted. Recommending mechanical soft consistency with thin liquids. DVT prophylaxis-SCDs, aspirin 81 mg twice daily per ortho recommendations. Discharge planning: Rehab vs SNF pending PT eval. This patient was seen by CAREY Swanson under the supervision of Dr. Llamas. <Marialuisa Llamas - Last Filed: 07/26/17 14:15> - Physical Exam Vital Signs Temp Pulse Resp BP Pulse Ox 98.6 F 94 30 H 136/74 H 95 07/26/17 13:36 07/26/17 13:36 07/26/17 13:36 07/26/17 13:36 07/26/17 13:36 Oxygen Flow Rate (L/min) 2 Oxygen Delivery Method Nasal Cannula Weight: 50.1 kg Body Mass Index (BMI) 20.2 Intake and Output for Last 24 Hours 07/24/17 07/25/17 07/26/17 23:59 23:59 23:59 Intake Total 2942 / 2942 1266 / 1266 1539 / 1539 Output Total 490 / 490 1480 / 1480 875 / 875 Balance 2452 / 2452 -214 / -214 664 / 664 Microbiology Past 72 Hours 07/25/17 03:50 Influenza Types A,B Direct FA (FARHEEN) - Final Mucosa - Nasopharyngeal 07/25/17 01:25 Streptococcus pneumoniae Antigen (M - Final Urine Catheter - [facility] 07/25/17 01:25 Legionella Antigen - Final Urine Catheter - [facility] Laboratory Tests Past 24 Hrs 07/26/17 07/26/17 06:20 06:20 WBC 7.4 RBC 2.37 L Hgb 9.2 L Hct 28.0 L MCV 118.1 H MCH 38.8 H MCHC 32.9 RDW 13.9 RDW Differential 59.8 H Plt Count 181 MPV 10.0 Immature Gran % (Auto) 0.300 Neut % (Auto) 79.0 H Lymph % (Auto) 14.4 L [place] % (Auto) 5.5 Eos % (Auto) 0.4 Baso % (Auto) 0.4 Absolute Neuts (auto) 5.9 Absolute Lymphs (auto) 1.07 Total Counted Not Reportable Sodium 139 Potassium 4.3 Chloride 106 Carbon Dioxide 25.0 Anion Gap 8 BUN 6 L Creatinine 0.35 L Estim Creat Clear Calc 43.18 Est GFR (MDRD) Af Amer 239 Est GFR (MDRD) Non-Af 197 BUN/Creatinine Ratio 17.1 Glucose 97 Calcium 7.9 L Assessment/Plan Patient was seen and examined independently. She is much awake today. Complains of pain in the right hip. Denies any dizziness or shortness of breath. No acute events per telemetry. Vitals reviewed. Aware of tachycardia , which is due to pain and alcohol withdrawal. On alcohol withdrawal protocol with Librium and Ativan. Labs reviewed, patient appears stable. We will continue to manage as documented above and assessment and plan. Will DC Librium taper and continue only on the Ativan protocol to avoid oversedation. We will wait on case management to help us with discharge planning for rehab. Code Visit Inpatient E&M: 90202 Subs Hosp L2
--- NOTE | 2017-07-26 10:47 | PCM.PN.CARD ---
Subjectve: Patient doing well this morning. Status post right hip surgery yesterday. Sitting in a chair this morning. Patient is slightly confused, possibly due to alcohol withdrawal and pain medications. She has sinus tachycardia this morning and has moderate hypertension. She was awaiting a swallow study, and has not taken any of her pills. Stress echo yesterday negative for inducible ischemia. Echocardiogram showed mild inferior posterior lateral hypokinesis with an EF of 55%, stage I diastolic dysfunction, and an RVSP of 36 mmHg. Objective: Vital Signs Temp Pulse Resp BP Pulse Ox 98.3 F 119 H 30 H 164/91 H 95 07/26/17 09:17 07/26/17 10:18 07/26/17 09:17 07/26/17 09:17 07/26/17 09:17 Oxygen Flow Rate (L/min) 2.5 Oxygen Delivery Method Nasal Cannula Weight: 110 lb 7.225 oz Body Mass Index (BMI) 20.2 Intake and Output for Last 24 Hours 07/24/17 07/25/17 07/26/17 23:59 23:59 23:59 Intake Total 2942 / 2942 1266 / 1266 1039 / 1039 Output Total 490 / 490 1480 / 1480 575 / 575 Balance 2452 / 2452 -214 / -214 464 / 464 General: Awake, Alert, Oriented x 3 HEENT: PERRL, EOMI, Sclera Non Icteric Neck: Supple, Good ROM, No Lymph Node Enlargement Lungs: Clear to auscultation Cardiovascular: Regular Rhythm, Normal S1, Normal S2, No Murmurs, No Rubs, No Gallops Vascular: No Carotid Bruits, Normal Femoral Pulses, Normal Radial Pulses, Normal Dorsalis Pedal Pulse, Normal Posterior Tibial Pulses Abdomen: Bowel Sounds Present, Soft, Non Tender, No HSM, No Organomegaly Extremities: No Cyanosis, No Clubbing, No edema Neurological: No Focal Motor or Sensory Deficit 07/26/17 06:20: WBC 7.4, RBC 2.37 L, Hgb 9.2 L, Hct 28.0 L, MCV 118.1 H, MCH 38.8 H, MCHC 32.9, RDW 13.9, RDW Differential 59.8 H, Plt Count 181, MPV 10.0, Immature Gran % (Auto) 0.300, Neut % (Auto) 79.0 H, Lymph % (Auto) 14.4 L, [place] % (Auto) 5.5, Eos % (Auto) 0.4, Baso % (Auto) 0.4, Absolute Neuts (auto) 5.9, Total Counted Not Reportable 07/26/17 06:20: Sodium 139, Potassium 4.3, Chloride 106, Carbon Dioxide 25.0, Anion Gap 8, BUN 6 L, Creatinine 0.35 L, Est GFR (MDRD) Af Amer 239, Est GFR (MDRD) Non-Af 197, BUN/Creatinine Ratio 17.1, Glucose 97, Calcium 7.9 L Rhythm: EKG: ECHO: Stress Test: Cardiac Cath: PCI: CT Surgery: Holter monitor: EPS: PPM: CXR: Chest CT Scan: Medical Necessity - Tobacco Use Smoking Status: Current every day smoker Tobacco Use: Cigarettes Assessment/Plan 1. Coronary artery disease: Patient has a known history of coronary artery disease status post angioplasty and stenting in 2010 and at [facility] of an unknown vessel. She has not followed up with any senior program manager since that time, and has not participated in cardiac rehab. She now presents with dizziness, alcohol abuse, hypokalemia, and a fall causing a right hip fracture. She has had initial abnormal troponin which has peaked at 0.26 as of this writing. Prior to her hip fracture she was completely ambulatory and has been asymptomatic from a cardiac standpoint. She has not been on any antihypertensive medications, and came in rather hypertensive. She has been started on baby aspirin, metoprolol, and lisinopril as well as clonidine. Given the patient's hypotension this morning, I have requested that we hold her clonidine at this time. Echocardiogram showed mild inferior posterior lateral hypokinesis probably consistent with her CT in 2010, with an EF of 55%, stage I diastolic dysfunction, and an RVSP of 36 mmHg. Patient underwent a dobutamine echocardiogram yesterday which was negative for inducible ischemia at a good heart rate. She underwent right hip fracture repair yesterday without complications. Unfortunately we have no old records with respect to the patient's angiogram or stenting in 2010. She is no longer on Plavix. Continue baby aspirin. I recommend restarting her antihypertensive medications and treating her pain appropriately to avoid hypertension and tachycardia. In addition the patient is also a heavy drinker, and may be undergoing some component of alcohol withdrawal. 2. Tobacco cessation: I strongly encouraged the patient to discontinue all tobacco products. It does not appear that she is ready for tobacco cessation. 3. Alcohol abuse: The patient also consumes a significant amount of alcohol which may have contributed to her fall. She had an alcohol level of 56 upon arrival. Patient may have impending alcohol withdrawal hypertension and delirium tremens, which should be monitored for over the next 24-36 hours. Recommend that she discontinue all alcohol products. 4. Hyperlipidemia: Her LDL is 50, and HDL 39.. continue statin based therapy. 5. Thank you very much for the opportunity to participate in the cardiac care of your patient. Code Visit Inpatient E&M: [id number] Subs Hosp L2
--- NOTE | 2017-07-26 10:50 | PN.CARD_ITS ---
Subjectve: Patient doing well this morning. Status post right hip surgery yesterday. Sitting in a chair this morning. Patient is slightly confused, possibly due to alcohol withdrawal and pain medications. She has sinus tachycardia this morning and has moderate hypertension. She was awaiting a swallow study, and has not taken any of her pills. Stress echo yesterday negative for inducible ischemia. Echocardiogram showed mild inferior posterior lateral hypokinesis with an EF of 55%, stage I diastolic dysfunction, and an RVSP of 36 mmHg. Objective: Vital Signs Temp Pulse Resp BP Pulse Ox 98.3 F 119 H 30 H 164/91 H 95 07/26/17 09:17 07/26/17 10:18 07/26/17 09:17 07/26/17 09:17 07/26/17 09:17 Oxygen Flow Rate (L/min) 2.5 Oxygen Delivery Method Nasal Cannula Weight: 110 lb 7.225 oz Body Mass Index (BMI) 20.2 Intake and Output for Last 24 Hours 07/24/17 07/25/17 07/26/17 23:59 23:59 23:59 Intake Total 2942 / 2942 1266 / 1266 1039 / 1039 Output Total 490 / 490 1480 / 1480 575 / 575 Balance 2452 / 2452 -214 / -214 464 / 464 General: Awake, Alert, Oriented x 3 HEENT: PERRL, EOMI, Sclera Non Icteric Neck: Supple, Good ROM, No Lymph Node Enlargement Lungs: Clear to auscultation Cardiovascular: Regular Rhythm, Normal S1, Normal S2, No Murmurs, No Rubs, No Gallops Vascular: No Carotid Bruits, Normal Femoral Pulses, Normal Radial Pulses, Normal Dorsalis Pedal Pulse, Normal Posterior Tibial Pulses Abdomen: Bowel Sounds Present, Soft, Non Tender, No HSM, No Organomegaly Extremities: No Cyanosis, No Clubbing, No edema Neurological: No Focal Motor or Sensory Deficit 07/26/17 06:20: WBC 7.4, RBC 2.37 L, Hgb 9.2 L, Hct 28.0 L, MCV 118.1 H, MCH 38.8 H, MCHC 32.9, RDW 13.9, RDW Differential 59.8 H, Plt Count 181, MPV 10.0, Immature Gran % (Auto) 0.300, Neut % (Auto) 79.0 H, Lymph % (Auto) 14.4 L, [place] % (Auto) 5.5, Eos % (Auto) 0.4, Baso % (Auto) 0.4, Absolute Neuts (auto) 5.9, Total Counted Not Reportable 07/26/17 06:20: Sodium 139, Potassium 4.3, Chloride 106, Carbon Dioxide 25.0, Anion Gap 8, BUN 6 L, Creatinine 0.35 L, Est GFR (MDRD) Af Amer 239, Est GFR ( MDRD) Non-Af 197, BUN/Creatinine Ratio 17.1, Glucose 97, Calcium 7.9 L Rhythm: EKG: ECHO: Stress Test: Cardiac Cath: PCI: CT Surgery: Holter monitor: EPS: PPM: CXR: Chest CT Scan: Medical Necessity - Tobacco Use Smoking Status: Current every day smoker Tobacco Use: Cigarettes Assessment/Plan 1. Coronary artery disease: Patient has a known history of coronary artery disease status post angioplasty and stenting in 2010 and at [facility] of an unknown vessel. She has not followed up with any gas tester since that time, and has not participated in cardiac rehab. She now presents with dizziness, alcohol abuse, hypokalemia, and a fall causing a right hip fracture. She has had initial abnormal troponin which has peaked at 0.26 as of this writing. Prior to her hip fracture she was completely ambulatory and has been asymptomatic from a cardiac standpoint. She has not been on any antihypertensive medications, and came in rather hypertensive. She has been started on baby aspirin, metoprolol, and lisinopril as well as clonidine. Given the patient's hypotension this morning, I have requested that we hold her clonidine at this time. Echocardiogram showed mild inferior posterior lateral hypokinesis probably consistent with her [place] in 2010, with an EF of 55%, stage I diastolic dysfunction , and an RVSP of 36 mmHg. Patient underwent a dobutamine echocardiogram yesterday which was negative for inducible ischemia at a good heart rate. She underwent right hip fracture repair yesterday without complications. Unfortunately we have no old records with respect to the patient's angiogram or stenting in 2010. She is no longer on Plavix. Continue baby aspirin. I recommend restarting her antihypertensive medications and treating her pain appropriately to avoid hypertension and tachycardia. In addition the patient is also a heavy drinker, and may be undergoing some component of alcohol withdrawal. 2. Tobacco cessation: I strongly encouraged the patient to discontinue all tobacco products. It does not appear that she is ready for tobacco cessation. 3. Alcohol abuse: The patient also consumes a significant amount of alcohol which may have contributed to her fall. She had an alcohol level of 56 upon arrival. Patient may have impending alcohol withdrawal hypertension and delirium tremens, which should be monitored for over the next 24-36 hours. Recommend that she discontinue all alcohol products. 4. Hyperlipidemia: Her LDL is 50, and HDL 39.. continue statin based therapy. 5. Thank you very much for the opportunity to participate in the cardiac care of your patient. Code Visit Inpatient E&M: [id number] Subs Hosp L2
[2017-07-26] MEDS: chlordiazePOXIDE 25 MG Capsule PO (12:34)
[2017-07-26] MEDS: Polyethylene Glycol 3350 17 GM PACKET PO (12:34)
[2017-07-26] MEDS: traZODone 50 MG Tablet PO (21:38)
[2017-07-26] MEDS: Atorvastatin Calcium 40 MG Tablet PO (21:38)
[2017-07-27] VITALS (24 sets, daily range): BP systolic 108–183; BP diastolic 65–104; PULSE 92–121; RESP 18–36; TEMP 36.2–37.6; O2SAT 93–98
[2017-07-27] MEDS: Morphine 4 MG/ML Syringe IV ×2 (02:36→07:03)
[2017-07-27] MEDS: 0.9% NaCl Peripheral Flush Adult/Peds IV ×3 (02:36→07:03)
[2017-07-27] MEDS: hydrALAZINE 20 MG/ML Vial 10 MG IV (02:37)
--- NOTE | 2017-07-27 02:56 | NURSING ---
dayshift charted IV on left wrist. this RN realized the IV was on right wrist. undid all of my charting to fix correct placement of IV.
[2017-07-27] MEDS: LORazepam 2 MG/ML Syringe IV ×2 (03:38→07:03)
[2017-07-27] MEDS: Piperacil/Tazobactam 3.375 GM/50 ML ML IV ×3 (05:31→21:42)
[2017-07-27 06:02] LABS: Hematocrit 28.6 % (37-47); Hemoglobin 9.5 g/dl (12.0-15.0); Mean Corp Hgb Conc 33.2 g/gl (32-36); Mean Corpuscular Hgb 39.7 pg (27.0-32.0); Mean Corpuscular Volume 119.7 fL (81-99); Mean Platelet Vol. 10.3 fl (6.2-12.0); Platelet Count 202 K/mm3 (150-450); RBC Distribution Width CV 13.3 % (11.6-14.6); RBC Distribution Width SD 56.6 fl (35.1-43.9); Red Blood Count 2.39 M/mm3 (4.2-5.4); White Blood Count 7.9 K/mm3 (4.4-11.0)
[2017-07-27 06:10] LABS: Scan Indicated on CBC? Y/N NO
[2017-07-27 06:17] LABS: Anion Gap 8 (5-15); BUN 4 mg/dL (7-18); BUN/Creat Ratio 19.9 RATIO (10-20); Calcium,Total 8.3 mg/dL (8.5-10.1); Chloride 107 mmol/L (98-107); EST Glomerular Filtration Rate 374 mL/min (>60); Est Glom Filt Rate - Afr Amer 453 mL/min (>60); Estimated Creatinine Clearance 43.18 ml/min; Glucose 77 mg/dL (74-106); Potassium 3.8 mmol/L (3.5-5.1); Sodium Level 139 mmol/L (136-145)
[2017-07-27] MEDS: Ipratropium/Albuterol Sulfate 3 ML AMPUL.NEB INHALATION ×2 (06:49→11:29)
--- NOTE | 2017-07-27 07:52 | PCM.PN.ORT ---
Patient Problems: Active and Suspected Problems Closed right hip fracture (Acute) CHRONIC ALCOHOL USE DEPENDENCE (Acute) Acute on recurrent fall (Acute) Non-STEMI (non-ST elevated myocardial infarction) (Acute) Preoperative cardiovascular examination (Acute) Subjective: 67-year-old female postop day 2 status post right intertrochanteric cephalo-medullary nail. PT has evaluated the patient notes weakness which be expected. Patient is a limited household ambulator he uses a cane. Patient currently sleeping at this time did not easily aroused but did not awake her. I had seen the patient yesterday afternoon when she was more awake. Patient reports the pain as expected from having previous hip surgery. - Physical Exam General: Alert - Dysuria from off, Cooperative, No apparent distress Musculoskeletal: - - No calf pain negative Homans. EHL anterior gastrocsoleus peroneals quads hamstrings appear to be 5 out of 5. No expanding hematoma to the right hip. Dressing in place. X-rays reviewed show the hardware otherwise well seated well-placed status post right hip cephalo-medullary nail for displaced intertrochanteric femur fracture. Vital Signs Temp Pulse Resp BP Pulse Ox 98.0 F 117 H 36 H 155/88 H 98 07/27/17 07:05 07/27/17 07:05 07/27/17 07:05 07/27/17 07:05 07/27/17 07:05 Oxygen Flow Rate (L/min) 2 Oxygen Delivery Method Nasal Cannula Weight: 110 lb 7.225 oz Body Mass Index (BMI) 20.2 Intake and Output for Last 24 Hours 07/25/17 07/26/17 07/27/17 23:59 23:59 23:59 Intake Total 1266 / 1266 2658.4 / 2658.4 592.9 / 592.9 Output Total 1480 / 1480 2150 / 2150 900 / 900 Balance -214 / -214 508.4 / 508.4 -307.1 / -307.1 Microbiology Past 72 Hours 07/25/17 03:50 Influenza Types A,B Direct FA (FARHEEN) - Final Mucosa - Nasopharyngeal 07/25/17 01:25 Streptococcus pneumoniae Antigen (M - Final Urine Catheter - [facility]ro 07/25/17 01:25 Legionella Antigen - Final Urine Catheter - [facility] Laboratory Tests Past 24 Hrs 07/27/17 07/27/17 05:16 05:16 WBC 7.9 RBC 2.39 L Hgb 9.5 L Hct 28.6 L MCV 119.7 H MCH 39.7 H MCHC 33.2 RDW 13.3 RDW Differential 56.6 H Plt Count 202 MPV 10.3 Sodium 139 Potassium 3.8 Chloride 107 Carbon Dioxide 24.0 Anion Gap 8 BUN 4 L Creatinine 0.20 L Estim Creat Clear Calc 43.18 Est GFR (MDRD) Af Amer 453 Est GFR (MDRD) Non-Af 374 BUN/Creatinine Ratio 19.9 Glucose 77 Calcium 8.3 L Medical Necessity - Tobacco Use Smoking Status: Current every day smoker Tobacco Use: Cigarettes Assessment/Plan Active and Suspected Problems Closed right hip fracture (Acute) CHRONIC ALCOHOL USE DEPENDENCE (Acute) Acute on recurrent fall (Acute) Non-STEMI (non-ST elevated myocardial infarction) (Acute) Preoperative cardiovascular examination (Acute) Assessment: After orthopedics status post right hip intertrochanteric femur fracture nailing using cephalo-medullary technique. Orthopedically patient is stable. Plan: At this point time patient is a medical management patient really. Continue to weight-bear as tolerated to the right lower extremity. Continue aggressive mobilization. Patient will most likely go from using a cane to a walker for at least 1 year during household ambulation. Is not uncommon for patients who have had hip fractures to drop in terms of functional capacity level with gait by one level. We will continue to follow the patient at this time. Dressing change at this point. [place] will come out in 2 weeks. Any major issues please contact me.
[2017-07-27] MEDS: 0.9% Normal Saline 1,000 ML 75 ML IV ×2 (08:10→21:42)
[2017-07-27] MEDS: Multivitamins,Ther W-Minerals Tablet 1 TABLET PO (08:23)
[2017-07-27] MEDS: Aspirin E.C. 81 MG Tablet PO ×2 (08:23→17:59)
[2017-07-27] MEDS: Metoprolol Tartrate 25 MG Tablet 12.5 MG PO ×2 (08:23→10:14)
[2017-07-27] MEDS: Thiamine Hydrochloride 100 MG Tablet PO (08:23)
[2017-07-27] MEDS: Folic Acid 1 MG Tablet PO (08:23)
[2017-07-27] MEDS: Na Biphos/Potassium Phosphate PACKET 1 PACKET PO ×4 (08:23→21:44)
--- NOTE | 2017-07-27 09:37 | CASEMGMT ---
SW has tried 2 times now to call patient's son. Once yesterday and once this am. He does not answer and his voice mail is full. SW will attempt to talk with patient, however at this time she is not sleeping and does not waken as she received Ativan and Morphine. PHILIPP cannot make a discharge plan without any input from family or patient. Ghislaine LOO BIOMEDICAL REPAIR TECHNICIAN
[2017-07-27] MEDS: Famotidine 20 MG Tablet PO ×2 (10:11→21:44)
--- NOTE | 2017-07-27 11:42 | PCM.PN.CARD ---
Subjectve: Patient sleeping this morning, easy to awaken, but somewhat somnolent. Denies any chest pain or shortness of breath. Symmetry negative. Patient appears to have sinus tachycardia. Objective: Vital Signs Temp Pulse Resp BP Pulse Ox 97.7 F L 100 28 H 152/80 H 97 07/27/17 09:59 07/27/17 10:14 07/27/17 09:59 07/27/17 10:14 07/27/17 09:59 Oxygen Flow Rate (L/min) 2 Oxygen Delivery Method Nasal Cannula Weight: 110 lb 7.225 oz Body Mass Index (BMI) 20.2 Intake and Output for Last 24 Hours 07/25/17 07/26/17 07/27/17 23:59 23:59 23:59 Intake Total 1266 / 1266 2658.4 / 2658.4 592.9 / 592.9 Output Total 1480 / 1480 2150 / 2150 900 / 900 Balance -214 / -214 508.4 / 508.4 -307.1 / -307.1 General: Awake, Alert, Oriented x 3 HEENT: PERRL, EOMI, Sclera Non Icteric Neck: Supple, Good ROM, No Lymph Node Enlargement Lungs: Clear to auscultation Cardiovascular: Regular Rhythm, Normal S1, Normal S2, No Murmurs, No Rubs, No Gallops Vascular: No Carotid Bruits, Normal Femoral Pulses, Normal Radial Pulses, Normal Dorsalis Pedal Pulse, Normal Posterior Tibial Pulses Abdomen: Bowel Sounds Present, Soft, Non Tender, No HSM, No Organomegaly Extremities: No Cyanosis, No Clubbing, No edema Neurological: No Focal Motor or Sensory Deficit 07/27/17 05:16: WBC 7.9, RBC 2.39 L, Hgb 9.5 L, Hct 28.6 L, MCV 119.7 H, MCH 39.7 H, MCHC 33.2, RDW 13.3, RDW Differential 56.6 H, Plt Count 202, MPV 10.3 07/27/17 05:16: Sodium 139, Potassium 3.8, Chloride 107, Carbon Dioxide 24.0, Anion Gap 8, BUN 4 L, Creatinine 0.20 L, Est GFR (MDRD) Af Amer 453, Est GFR (MDRD) Non-Af 374, BUN/Creatinine Ratio 19.9, Glucose 77, Calcium 8.3 L Rhythm: EKG: ECHO: Stress Test: Cardiac Cath: PCI: CT Surgery: Holter monitor: EPS: PPM: CXR: Chest CT Scan: Medical Necessity - Tobacco Use Smoking Status: Current every day smoker Tobacco Use: Cigarettes Assessment/Plan 1. Coronary artery disease: Patient has a known history of coronary artery disease status post angioplasty and stenting in 2010 and an unknown [facility] and of an unknown vessel. She has not followed up with any manager grant since that time, and has not participated in cardiac rehab. She now presents with dizziness, alcohol abuse, hypokalemia, and a fall causing a right hip fracture. She has had initial abnormal troponin which has peaked at 0.26 as of this writing. Prior to her hip fracture she was completely ambulatory and has been asymptomatic from a cardiac standpoint. She has not been on any antihypertensive medications, and came in rather hypertensive. She has been started on baby aspirin, metoprolol, and lisinopril as well as clonidine. Given the patient's hypotension this morning, I have requested that we hold her clonidine at this time. Echocardiogram showed mild inferior posterior lateral hypokinesis probably consistent with her PR in 2010, with an EF of 55%, stage I diastolic dysfunction, and an RVSP of 36 mmHg. This is most likely consistent with her previous myocardial infarction Patient underwent a dobutamine echocardiogram yesterday which was negative for inducible ischemia at a good heart rate. She underwent right hip fracture repair on 07/25/17 without complications. Unfortunately we have no old records with respect to the patient's angiogram or stenting in 2010. She is no longer on Plavix. Continue baby aspirin. I recommend restarting her antihypertensive medications and treating her pain appropriately to avoid hypertension and tachycardia. We will increase her Lopressor to 25 mg p.o. twice daily given her tachycardia in addition the patient is also a heavy drinker, and may be undergoing some component of alcohol withdrawal. 2. Tobacco cessation: I strongly encouraged the patient to discontinue all tobacco products. It does not appear that she is ready for tobacco cessation. 3. Alcohol abuse: The patient also consumes a significant amount of alcohol which may have contributed to her fall. She had an alcohol level of 56 upon arrival. Recommend that she discontinue all alcohol products. 4. Hyperlipidemia: Her LDL is 50, and HDL 39.. continue statin based therapy. 5. Thank you very much for the opportunity to participate in the cardiac care of your patient. Please call with any questions, will follow peripherally. Code Visit Inpatient E&M: 35482 Subs Hosp L2
--- NOTE | 2017-07-27 12:05 | PCM.PROGNOTE ---
<Brianna Betancur - Last Filed: 07/27/17 12:15> Patient Problems: Active and Suspected Problems Closed right hip fracture (Acute) CHRONIC ALCOHOL USE DEPENDENCE (Acute) Acute on recurrent fall (Acute) Non-STEMI (non-ST elevated myocardial infarction) (Acute) Preoperative cardiovascular examination (Acute) Subjective: Patient lethargic this morning. Responds to noxious stimuli. No acute events overnight. - Physical Exam General: Lethargic Oral: Dry Mucosa Neck: Supple, No JVD, Negative Carotid Bruits Lungs: Clear to auscultation, Diminished Cardiovascular: Regular Rhythm, Normal S1, Normal S2, No murmurs, Tachycardic Abdomen: Bowel Sounds Present, Soft, Non Tender, Non-Distended Extremities: No clubbing, No cyanosis, No edema, Capillary Refill Less than 3 Seconds Skin: No rashes, No breakdown, - - Right hip dressing dry and intact. Musculoskeletal: No Tenderness to Palpation of Joints or Extremities Neurological: Cranial nerves II-XII grossly intact, Neuro grossly intact Psych/Mental Status: - - Unable to assess Vital Signs Temp Pulse Resp BP Pulse Ox 97.7 F L 100 28 H 152/80 H 97 07/27/17 09:59 07/27/17 10:14 07/27/17 09:59 07/27/17 10:14 07/27/17 09:59 Oxygen Flow Rate (L/min) 2 Oxygen Delivery Method Nasal Cannula Weight: 50.1 kg Body Mass Index (BMI) 20.2 Intake and Output for Last 24 Hours 07/25/17 07/26/17 07/27/17 23:59 23:59 23:59 Intake Total 1266 / 1266 2658.4 / 2658.4 592.9 / 592.9 Output Total 1480 / 1480 2150 / 2150 900 / 900 Balance -214 / -214 508.4 / 508.4 -307.1 / -307.1 Microbiology Past 72 Hours 07/25/17 03:50 Influenza Types A,B Direct FA (FARHEEN) - Final Mucosa - Nasopharyngeal 07/25/17 01:25 Streptococcus pneumoniae Antigen (M - Final Urine Catheter - Guerrero 07/25/17 01:25 Legionella Antigen - Final Urine Catheter - Guerrero Laboratory Tests Past 24 Hrs 07/27/17 07/27/17 05:16 05:16 WBC 7.9 RBC 2.39 L Hgb 9.5 L Hct 28.6 L MCV 119.7 H MCH 39.7 H MCHC 33.2 RDW 13.3 RDW Differential 56.6 H Plt Count 202 MPV 10.3 Sodium 139 Potassium 3.8 Chloride 107 Carbon Dioxide 24.0 Anion Gap 8 BUN 4 L Creatinine 0.20 L Estim Creat Clear Calc 43.18 Est GFR (MDRD) Af Amer 453 Est GFR (MDRD) Non-Af 374 BUN/Creatinine Ratio 19.9 Glucose 77 Calcium 8.3 L Medical Necessity - Tobacco Use Smoking Status: Current every day smoker Tobacco Use: Cigarettes Assessment/Plan Active and Suspected Problems Closed right hip fracture (Acute) CHRONIC ALCOHOL USE DEPENDENCE (Acute) Acute on recurrent fall (Acute) Non-STEMI (non-ST elevated myocardial infarction) (Acute) Preoperative cardiovascular examination (Acute) Patient is a 67-year-old female admitted 07/23/17 due to mechanical fall resulting in right hip fracture. She has a past medical history of chronic alcohol abuse, tobacco dependence, history of TIA, history of alcoholic hepatitis, CAD status post PCI ?1. 1. General debility status post mechanical fall prior to admission resulting in right hip [id number] shows right intertrochanteric fracture. Patient underwent surgical repair of right hip fracture 07/25/[address] Gifford. PT/OT. Continue PRN pain regimen. IS. Rehab VS SNF at [place] pending PT evaluation. 2. Indeterminate cardiac enzymes-EKG with sinus rhythm and T-wave inversion. Chest x-ray unremarkable. Cardiology consulted. Continue aspirin, statin, beta-gilmar. Patient underwent stress echo which showed no evidence of ischemia. Normal ejection fraction. Echocardiogram shows an EF of 55%, stage I diastolic dysfunction, RVSP estimated to be 36 mmHg. 3. Acute toxic encephalopathy suspected secondary to chronic alcohol abuse/history of alcoholic hepatitis-alcohol level on admission 56. Continue CIWA protocol. Continue multivitamin, thiamine and folic acid. Decrease sedating medications. 4. CAD status post PCI-continue aspirin, statin, beta-gilmar. 5. Tobacco dependence-encourage smoking cessation. Nicotine replacement patch. 6. History of TIA-continue aspirin, statin. 7. Severe protein calorie malnutrition-nutrition consult. Continue ensure supplementation. 8. Dysphagia-speech therapy consulted. Recommending mechanical soft consistency with thin liquids. DVT prophylaxis-SCDs, aspirin 81 mg twice daily per ortho recommendations. Discharge planning: Rehab vs SNF pending PT eval. This patient was seen by CAREY Swanson under the supervision of Dr. Llamas. <Marialuisa Llamas - Last Filed: 07/27/17 15:04> - Physical Exam Vital Signs Temp Pulse Resp BP Pulse Ox 97.2 F L 95 22 H 129/65 H 97 07/27/17 13:55 07/27/17 13:55 07/27/17 13:55 07/27/17 13:55 07/27/17 13:55 Oxygen Flow Rate (L/min) 2 Oxygen Delivery Method Nasal Cannula Weight: 50.1 kg Body Mass Index (BMI) 20.2 Intake and Output for Last 24 Hours 07/25/17 07/26/17 07/27/17 23:59 23:59 23:59 Intake Total 1266 / 1266 2658.4 / 2658.4 1261.9 / 1261.9 Output Total 1480 / 1480 2150 / 2150 1400 / 1400 Balance -214 / -214 508.4 / 508.4 -138.1 / -138.1 Microbiology Past 72 Hours 07/25/17 01:12 Blood Culture - Preliminary Blood Culture (Wb) - Right Hand No growth in 48 hours. 07/25/17 01:05 Blood Culture - Preliminary Blood Culture (Wb) - Anticubital Right No growth in 48 hours. 07/25/17 03:50 Influenza Types A,B Direct FA (FARHEEN) - Final Mucosa - Nasopharyngeal 07/25/17 01:25 Streptococcus pneumoniae Antigen (M - Final Urine Catheter - Gu[facility]ro 07/25/17 01:25 Legionella Antigen - Final Urine Catheter - [facility]ro Laboratory Tests Past 24 Hrs 07/27/17 07/27/17 05:16 05:16 WBC 7.9 RBC 2.39 L Hgb 9.5 L Hct 28.6 L MCV 119.7 H MCH 39.7 H MCHC 33.2 RDW 13.3 RDW Differential 56.6 H Plt Count 202 MPV 10.3 Sodium 139 Potassium 3.8 Chloride 107 Carbon Dioxide 24.0 Anion Gap 8 BUN 4 L Creatinine 0.20 L Estim Creat Clear Calc 43.18 Est GFR (MDRD) Af Amer 453 Est GFR (MDRD) Non-Af 374 BUN/Creatinine Ratio 19.9 Glucose 77 Calcium 8.3 L Assessment/Plan Patient was seen and examined independently of nurse practitioner, Brianna Betancur. I agree with above-mentioned interval notes, physical exam and assessment and plan. No acute events overnight. Patient is very lethargic. Opens eyes to commands but does not answer appropriately. Vitals reviewed, stable. Physical exam is unremarkable. Will DC on sedatives except for Ativan on the CIWA protocol. DC pain medicines for now and put on scheduled Tylenol as needed. May reintroduce narcotic medications gradually if patient's mentation improves. Code Visit Inpatient E&M: 70202 Subs Hosp L3
--- NOTE | 2017-07-27 12:08 | PN_ITS ---
<Brianna Betancur - Last Filed: 07/27/17 12:15> Patient Problems: Active and Suspected Problems Closed right hip fracture (Acute) CHRONIC ALCOHOL USE DEPENDENCE (Acute) Acute on recurrent fall (Acute) Non-STEMI (non-ST elevated myocardial infarction) (Acute) Preoperative cardiovascular examination (Acute) Subjective: Patient lethargic this morning. Responds to noxious stimuli. No acute events overnight. - Physical Exam General: Lethargic Oral: Dry Mucosa Neck: Supple, No JVD, Negative Carotid Bruits Lungs: Clear to auscultation, Diminished Cardiovascular: Regular Rhythm, Normal S1, Normal S2, No murmurs, Tachycardic Abdomen: Bowel Sounds Present, Soft, Non Tender, Non-Distended Extremities: No clubbing, No cyanosis, No edema, Capillary Refill Less than 3 Seconds Skin: No rashes, No breakdown, - - Right hip dressing dry and intact. Musculoskeletal: No Tenderness to Palpation of Joints or Extremities Neurological: Cranial nerves II-XII grossly intact, Neuro grossly intact Psych/Mental Status: - - Unable to assess Vital Signs Temp Pulse Resp BP Pulse Ox 97.7 F L 100 28 H 152/80 H 97 07/27/17 09:59 07/27/17 10:14 07/27/17 09:59 07/27/17 10:14 07/27/17 09:59 Oxygen Flow Rate (L/min) 2 Oxygen Delivery Method Nasal Cannula Weight: 50.1 kg Body Mass Index (BMI) 20.2 Intake and Output for Last 24 Hours 07/25/17 07/26/17 07/27/17 23:59 23:59 23:59 Intake Total 1266 / 1266 2658.4 / 2658.4 592.9 / 592.9 Output Total 1480 / 1480 2150 / 2150 900 / 900 Balance -214 / -214 508.4 / 508.4 -307.1 / -307.1 Microbiology Past 72 Hours 07/25/17 03:50 Influenza Types A,B Direct FA (FARHEEN) - Final Mucosa - Nasopharyngeal 07/25/17 01:25 Streptococcus pneumoniae Antigen (M - Final Urine Catheter - Guerrero 07/25/17 01:25 Legionella Antigen - Final Urine Catheter - Gu[facility]ro Laboratory Tests Past 24 Hrs 07/27/17 07/27/17 05:16 05:16 WBC 7.9 RBC 2.39 L Hgb 9.5 L Hct 28.6 L MCV 119.7 H MCH 39.7 H MCHC 33.2 RDW 13.3 RDW Differential 56.6 H Plt Count 202 MPV 10.3 Sodium 139 Potassium 3.8 Chloride 107 Carbon Dioxide 24.0 Anion Gap 8 BUN 4 L Creatinine 0.20 L Estim Creat Clear Calc 43.18 Est GFR (MDRD) Af Amer 453 Est GFR (MDRD) Non-Af 374 BUN/Creatinine Ratio 19.9 Glucose 77 Calcium 8.3 L Medical Necessity - Tobacco Use Smoking Status: Current every day smoker Tobacco Use: Cigarettes Assessment/Plan Active and Suspected Problems Closed right hip fracture (Acute) CHRONIC ALCOHOL USE DEPENDENCE (Acute) Acute on recurrent fall (Acute) Non-STEMI (non-ST elevated myocardial infarction) (Acute) Preoperative cardiovascular examination (Acute) Patient is a 67-year-old female admitted 07/23/17 due to mechanical fall resulting in right hip fracture. She has a past medical history of chronic alcohol abuse, tobacco dependence, history of TIA, history of alcoholic hepatitis, CAD status post PCI ?1. 1. General debility status post mechanical fall prior to admission resulting in right hip [id number] shows right intertrochanteric fracture. Patient underwent surgical repair of right hip fracture 07/25/[address] Gifford. PT/OT. Continue PRN pain regimen. IS. Rehab VS SNF at [place] pending PT evaluation. 2. Indeterminate cardiac enzymes-EKG with sinus rhythm and T-wave inversion. Chest x-ray unremarkable. Cardiology consulted. Continue aspirin, statin, beta -gilmar. Patient underwent stress echo which showed no evidence of ischemia. Normal ejection fraction. Echocardiogram shows an EF of 55%, stage I diastolic dysfunction, RVSP estimated to be 36 mmHg. 3. Acute toxic encephalopathy suspected secondary to chronic alcohol abuse/ history of alcoholic hepatitis-alcohol level on admission 56. Continue CIWA protocol. Continue multivitamin, thiamine and folic acid. Decrease sedating medications. 4. CAD status post PCI-continue aspirin, statin, beta-gilmar. 5. Tobacco dependence-encourage smoking cessation. Nicotine replacement patch. 6. History of TIA-continue aspirin, statin. 7. Severe protein calorie malnutrition-nutrition consult. Continue ensure supplementation. 8. Dysphagia-speech therapy consulted. Recommending mechanical soft consistency with thin liquids. DVT prophylaxis-SCDs, aspirin 81 mg twice daily per ortho recommendations. Discharge planning: Rehab vs SNF pending PT eval. This patient was seen by CAREY Swanson under the supervision of Dr. Llamas. <Marialuisa Llamas - Last Filed: 07/27/17 15:04> - Physical Exam Vital Signs Temp Pulse Resp BP Pulse Ox 97.2 F L 95 22 H 129/65 H 97 07/27/17 13:55 07/27/17 13:55 07/27/17 13:55 07/27/17 13:55 07/27/17 13:55 Oxygen Flow Rate (L/min) 2 Oxygen Delivery Method Nasal Cannula Weight: 50.1 kg Body Mass Index (BMI) 20.2 Intake and Output for Last 24 Hours 07/25/17 07/26/17 07/27/17 23:59 23:59 23:59 Intake Total 1266 / 1266 2658.4 / 2658.4 1261.9 / 1261.9 Output Total 1480 / 1480 2150 / 2150 1400 / 1400 Balance -214 / -214 508.4 / 508.4 -138.1 / -138.1 Microbiology Past 72 Hours 07/25/17 01:12 Blood Culture - Preliminary Blood Culture (Wb) - Right Hand No growth in 48 hours. 07/25/17 01:05 Blood Culture - Preliminary Blood Culture (Wb) - Anticubital Right No growth in 48 hours. 07/25/17 03:50 Influenza Types A,B Direct FA (FARHEEN) - Final Mucosa - Nasopharyngeal 07/25/17 01:25 Streptococcus pneumoniae Antigen (M - Final Urine Catheter - Guerrero 07/25/17 01:25 Legionella Antigen - Final Urine Catheter - Gu[facility]ro Laboratory Tests Past 24 Hrs 07/27/17 07/27/17 05:16 05:16 WBC 7.9 RBC 2.39 L Hgb 9.5 L Hct 28.6 L MCV 119.7 H MCH 39.7 H MCHC 33.2 RDW 13.3 RDW Differential 56.6 H Plt Count 202 MPV 10.3 Sodium 139 Potassium 3.8 Chloride 107 Carbon Dioxide 24.0 Anion Gap 8 BUN 4 L Creatinine 0.20 L Estim Creat Clear Calc 43.18 Est GFR (MDRD) Af Amer 453 Est GFR (MDRD) Non-Af 374 BUN/Creatinine Ratio 19.9 Glucose 77 Calcium 8.3 L Assessment/Plan Patient was seen and examined independently of nurse practitioner, Brianna Betancur. I agree with above-mentioned interval notes, physical exam and assessment and plan. No acute events overnight. Patient is very lethargic. Opens eyes to commands but does not answer appropriately. Vitals reviewed, stable. Physical exam is unremarkable. Will DC on sedatives except for Ativan on the CIWA protocol. DC pain medicines for now and put on scheduled Tylenol as needed. May reintroduce narcotic medications gradually if patient's mentation improves. Code Visit Inpatient E&M: [id number] Subs Hosp L3
[2017-07-27] MEDS: Acetaminophen 500 MG Tablet 1000 MG PO ×2 (13:50→21:43)
--- NOTE | 2017-07-27 15:00 | CASEMGMT ---
SW went into room w/RN in the attempt to speak w/pt, or attain pt's son's number. Pt was able to say she is fine, but when asked did not answer in regard to her son's telephone number. RN asked if we can look up son's number in her phone, pt did not answer. SW will continue to try to reach son, SW did ask RN if son comes in, to get a number from him for SW to call. Pt did tell RN that son works nights and sleeps during the day. Pt was not able to answer any questions by this SW today in regard to contacting son. SW will attempt to speak w/pt again tomorrow. RANDY Membreno, COMMUNITY RECREATION COORDINATOR
--- NOTE | 2017-07-27 16:26 | CASEMGMT ---
SW received a call from Marsha at patient's PCP's office. Patient was a patient of Dr Callahan and he has left. Patient has a new patient appt with Dr Peterson August 25. She did not have any additional contact information for patient. Ghislaine LOO MSW
[2017-07-27] MEDS: Atorvastatin Calcium 40 MG Tablet PO (21:43)
[2017-07-27] MEDS: Metoprolol Tartrate 25 MG Tablet PO (21:52)
[2017-07-28] VITALS (13 sets, daily range): BP systolic 137–175; BP diastolic 88–108; PULSE 83–110; RESP 18–24; TEMP 36.4–36.6; O2SAT 94–97
[2017-07-28] MEDS: Acetaminophen 500 MG Tablet 1000 MG PO ×3 (05:29→21:31)
[2017-07-28] MEDS: Piperacil/Tazobactam 3.375 GM/50 ML ML IV ×3 (05:30→21:30)
[2017-07-28] MEDS: Ipratropium/Albuterol Sulfate 3 ML AMPUL.NEB INHALATION ×2 (06:44→19:07)
[2017-07-28] MEDS: Thiamine Hydrochloride 100 MG Tablet PO (09:11)
[2017-07-28] MEDS: Aspirin E.C. 81 MG Tablet PO (09:11)
[2017-07-28] MEDS: Folic Acid 1 MG Tablet PO (09:11)
[2017-07-28] MEDS: Famotidine 20 MG Tablet PO ×2 (09:11→21:32)
[2017-07-28] MEDS: Multivitamins,Ther W-Minerals Tablet 1 TABLET PO (09:12)
[2017-07-28] MEDS: 0.9% Normal Saline 1,000 ML 75 ML IV ×2 (09:14→21:30)
[2017-07-28] MEDS: Metoprolol Tartrate 25 MG Tablet PO (09:18)
--- NOTE | 2017-07-28 09:56 | PCM.PN.CARD ---
Subjectve: Patient awake, alert, somewhat combative this morning. Otherwise answers questions appropriately. No chest pain. Telemetry negative. Patient been very hypertensive with her agitation. Objective: Vital Signs Temp Pulse Resp BP Pulse Ox 97.7 F L 98 20 H 175/103 H 95 07/28/17 09:08 07/28/17 09:18 07/28/17 09:08 07/28/17 09:18 07/28/17 09:08 Oxygen Flow Rate (L/min) 2 Oxygen Delivery Method Room Air Weight: 110 lb 7.225 oz Body Mass Index (BMI) 20.2 Intake and Output for Last 24 Hours 07/26/17 07/27/17 07/28/17 23:59 23:59 23:59 Intake Total 2658.4 / 2658.4 1730.9 / 1730.9 1035 / 1035 Output Total 2150 / 2150 1700 / 1700 1250 / 1250 Balance 508.4 / 508.4 30.9 / 30.9 -215 / -215 General: Awake, Alert, Oriented x 3 HEENT: PERRL, EOMI, Sclera Non Icteric Neck: Supple, Good ROM, No Lymph Node Enlargement Lungs: Clear to auscultation Cardiovascular: Regular Rhythm, Normal S1, Normal S2, No Murmurs, No Rubs, No Gallops Vascular: No Carotid Bruits, Normal Femoral Pulses, Normal Radial Pulses, Normal Dorsalis Pedal Pulse, Normal Posterior Tibial Pulses Abdomen: Bowel Sounds Present, Soft, Non Tender, No HSM, No Organomegaly Extremities: No Cyanosis, No Clubbing, No edema Neurological: No Focal Motor or Sensory Deficit Rhythm: EKG: ECHO: Stress Test: Cardiac Cath: PCI: CT Surgery: Holter monitor: EPS: PPM: CXR: Chest CT Scan: Medical Necessity - Tobacco Use Smoking Status: Current every day smoker Tobacco Use: Cigarettes Assessment/Plan 1. Coronary artery disease: Patient has a known history of coronary artery disease status post angioplasty and stenting in 2010 and an unknown [facility] and of an unknown vessel. She has not followed up with any fire controlman since that time, and has not participated in cardiac rehab. She now presents with dizziness, alcohol abuse, hypokalemia, and a fall causing a right hip fracture. She has had initial abnormal troponin which has peaked at 0.26 as of this writing. Prior to her hip fracture she was completely ambulatory and has been asymptomatic from a cardiac standpoint. She has not been on any antihypertensive medications, and came in rather hypertensive. She has been started on baby aspirin, metoprolol, and lisinopril as well as clonidine. Given the patient's hypotension this morning, I have requested that we hold her clonidine at this time. Echocardiogram showed mild inferior posterior lateral hypokinesis probably consistent with her [place] in 2010, with an EF of 55%, stage I diastolic dysfunction, and an RVSP of 36 mmHg. This is most likely consistent with her previous myocardial infarction Patient underwent a dobutamine echocardiogram on this admission which was negative for inducible ischemia at a good heart rate. She underwent right hip fracture repair on 07/25/17 without complications. Unfortunately we have no old records with respect to the patient's angiogram or stenting in 2010. She is no longer on Plavix. Continue baby aspirin. Would recommend switching her Lopressor to Coreg 6.25 mg p.o. twice daily, and starting her on Cozaar 25 mg p.o. daily for hypertension. 2. Tobacco cessation: I strongly encouraged the patient to discontinue all tobacco products. It does not appear that she is ready for tobacco cessation. 3. Alcohol abuse: The patient also consumes a significant amount of alcohol which may have contributed to her fall. She had an alcohol level of 56 upon arrival. Recommend that she discontinue all alcohol products. 4. Hyperlipidemia: Her LDL is 50, and HDL 39.. continue statin based therapy. 5. Thank you very much for the opportunity to participate in the cardiac care of your patient. Please call with any questions, will follow peripherally. Code Visit Inpatient E&M: 04711 Subs Hosp L2
--- NOTE | 2017-07-28 09:59 | PN.CARD_ITS ---
Subjectve: Patient awake, alert, somewhat combative this morning. Otherwise answers questions appropriately. No chest pain. Telemetry negative. Patient been very hypertensive with her agitation. Objective: Vital Signs Temp Pulse Resp BP Pulse Ox 97.7 F L 98 20 H 175/103 H 95 07/28/17 09:08 07/28/17 09:18 07/28/17 09:08 07/28/17 09:18 07/28/17 09:08 Oxygen Flow Rate (L/min) 2 Oxygen Delivery Method Room Air Weight: 110 lb 7.225 oz Body Mass Index (BMI) 20.2 Intake and Output for Last 24 Hours 07/26/17 07/27/17 07/28/17 23:59 23:59 23:59 Intake Total 2658.4 / 2658.4 1730.9 / 1730.9 1035 / 1035 Output Total 2150 / 2150 1700 / 1700 1250 / 1250 Balance 508.4 / 508.4 30.9 / 30.9 -215 / -215 General: Awake, Alert, Oriented x 3 HEENT: PERRL, EOMI, Sclera Non Icteric Neck: Supple, Good ROM, No Lymph Node Enlargement Lungs: Clear to auscultation Cardiovascular: Regular Rhythm, Normal S1, Normal S2, No Murmurs, No Rubs, No Gallops Vascular: No Carotid Bruits, Normal Femoral Pulses, Normal Radial Pulses, Normal Dorsalis Pedal Pulse, Normal Posterior Tibial Pulses Abdomen: Bowel Sounds Present, Soft, Non Tender, No HSM, No Organomegaly Extremities: No Cyanosis, No Clubbing, No edema Neurological: No Focal Motor or Sensory Deficit Rhythm: EKG: ECHO: Stress Test: Cardiac Cath: PCI: CT Surgery: Holter monitor: EPS: PPM: CXR: Chest CT Scan: Medical Necessity - Tobacco Use Smoking Status: Current every day smoker Tobacco Use: Cigarettes Assessment/Plan 1. Coronary artery disease: Patient has a known history of coronary artery disease status post angioplasty and stenting in 2010 and an unknown [facility] and of an unknown vessel. She has not followed up with any shingle bolt cutter since that time, and has not participated in cardiac rehab. She now presents with dizziness, alcohol abuse, hypokalemia, and a fall causing a right hip fracture. She has had initial abnormal troponin which has peaked at 0.26 as of this writing. Prior to her hip fracture she was completely ambulatory and has been asymptomatic from a cardiac standpoint. She has not been on any antihypertensive medications, and came in rather hypertensive. She has been started on baby aspirin, metoprolol, and lisinopril as well as clonidine. Given the patient's hypotension this morning, I have requested that we hold her clonidine at this time. Echocardiogram showed mild inferior posterior lateral hypokinesis probably consistent with her [place] in 2010, with an EF of 55%, stage I diastolic dysfunction , and an RVSP of 36 mmHg. This is most likely consistent with her previous myocardial infarction Patient underwent a dobutamine echocardiogram on this admission which was negative for inducible ischemia at a good heart rate. She underwent right hip fracture repair on 07/25/17 without complications. Unfortunately we have no old records with respect to the patient's angiogram or stenting in 2010. She is no longer on Plavix. Continue baby aspirin. Would recommend switching her Lopressor to Coreg 6.25 mg p.o. twice daily, and starting her on Cozaar 25 mg p.o. daily for hypertension. 2. Tobacco cessation: I strongly encouraged the patient to discontinue all tobacco products. It does not appear that she is ready for tobacco cessation. 3. Alcohol abuse: The patient also consumes a significant amount of alcohol which may have contributed to her fall. She had an alcohol level of 56 upon arrival. Recommend that she discontinue all alcohol products. 4. Hyperlipidemia: Her LDL is 50, and HDL 39.. continue statin based therapy. 5. Thank you very much for the opportunity to participate in the cardiac care of your patient. Please call with any questions, will follow peripherally. Code Visit Inpatient E&M: 16400 Subs Hosp L2
--- NOTE | 2017-07-28 10:45 | CASEMGMT ---
As per physician, pt is stating she wants to go home. SW met w/pt in room, pt is sitting up in bed, able to carry on a conversation. SW asked pt if she knows where she is and what happened, pt states she does. SW asked pt about going somewhere for rehab, pt states she is going home. SW inquired how she will manage at home, pt states her son can help her. SW inquired if he works at night, she states he does. SW inquired if her son can truly help her at home, help her to get to the bathroom, she states he can. SW asked if her son will be coming into the hospital, she states he will be here at 7pm tonight. SW inquired why she is so insistent on going home rather than somewhere for rehab, pt states that nobody here is treating her nicely; SW offered support to pt. SW explained can send her to a facility in the community, pt still not agreeable, states she is tough and can manage at home. SW asked her how it went when she got up w/therapy, pt states she does not know. SW reminded her that she is not walking well at all, and she is at risk of falling if she goes home. Pt still insistent on going home. Pt cannot identify any other reasons for wanting to do home other than the staff here has not been nice to her. Pt denies her son needs cared for, denies being concerned about not being able to leave a senior care. Pt then asked to go to the bathroom, SW explained will find someone to assist her and come back. PHILIPP asked SENIOR GRANTS OFFICER to assist pt, and updated doctor on the conversation. PHILIPP attempted to call pt's son Oscar again, his voice mail is full so could not leave a message. SW will speak w/pt further regarding discharge plan. RANDY Membreno, BATH ATTENDANT
[2017-07-28] MEDS: Losartan Potassium 25 MG Tablet PO (11:22)
[2017-07-28] MEDS: Carvedilol 6.25 MG Tablet PO ×2 (11:22→21:37)
[2017-07-28] MEDS: Na Biphos/Potassium Phosphate PACKET 1 PACKET PO ×2 (11:23→21:32)
--- NOTE | 2017-07-28 14:42 | CASEMGMT ---
Addendum entered by Dominga Rosas 07/28/17 15:42: Pt's son Oscar called this SW back, the police did come to his door and he called the hospital. SW apologized for having the police come to the door however SW was not able to reach him, SW explained his voice mail is full so SW could not leave a message. SW inquired about pt, asked if he thinks he can care for her as pt does not want to go anywhere for rehab. Son states he cannot take care of pt at home, states the bedroom is upstairs. Pt states that he does more or less work nights and sleep during the day. SW asked if pt is normally confused as she is confused here, he states no, but she was almost delusional after surgery. SW asked about pt's drinking, he states pt stopped drinking liquor about a year ago, and now drinks beer, about 8 beers/day at most. He states pt is in a deep depression, wakes up, drinks a couple of beers, then goes back to sleep. SW described pt's behavior today and conversation SW had w/her today, he states this is more like her usual self--refusing rehab and not wanting to discuss things further. SW asked son to come in tomorrow, son can come in some time between 8am-4pm tomorrow to meet w/SW and talk w/pt, will tell pt he cannot care for her. SW explained that pt is not fully able to make decisions, and asked if he is willing to make a decision about rehab. Son does seem agreeable to help w/this process, wants to talk about it in person tomorrow when he comes in. Son was not able to give a more specific time as to when he would be here but states he will come in tomorrow. SW did ask about other family, son states pt has another son pt has not seen in 7 years, and she has a sister she has not seen in 10 years, he states he is really the only family. SW will follow up w/pt and son tomorrow for discharge planning. RANDY Membreno, RETRIMMER Original Note: SW spoke again w/pt after OT. SW inquired how it went, she states fine, is up in the chair. Pt was able to get to the chair with the help of the therapist, according to her. SW asked again about pt going for rehab somewhere, pt is still not in agreement. SW asked how she will manage at home, as her son works all night then sleeps, and is not very available to help. Pt states her son can help and she will manage, states she can get up and get to the bathroom with a walker. SW reminded pt gently that she has not been able to get up on her own here. SW asked if her son is going to take time off work, pt did not answer this. SW asked if she remembers what happened and that she broke her hip. Pt states she did not break her hip. SW asked pt if she knows where she is, pt does not. SW reminded her that she is in the hospital, reminded her that as per the chart she got lightheaded in the bathroom and fell and broke her hip. SW asked if pt is aware she surgery, pt does not remember this. SW asked if she remembered this, pt states, sounds familiar. SW spoke to pt at length about the importance of healing properly and getting therapy so that she does not fall again. Pt states, I'm not going to fall again. Pt then told SW she is sick of young people telling old people how to live. SW again attempted to explain the importance of rehab and proper aftercare, pt still will not agree to go anywhere but home. SW did ask pt briefly about depression and anxiety, pt admits she is still struggling with this. SW asked pt about her alcohol consumption, pt denies that she has been drinking. After further discussion pt told SW she did not want to talk about this anymore. SW explained will follow up w/her again tomorrow. SW called the police and asked them to go knock on the door where the pt and son live, and ask son to call this SW as this SW needs his assist in discharge planning. Though pt is not wanting rehab, she is also not alert and oriented. SW will speak w/son should he call this SW, and will continue to try to speak w/pt about discharge plan. RANDY Membreno, RETRIMMER
--- NOTE | 2017-07-28 16:48 | PCM.PN.HOSP ---
Patient Problems: Active and Suspected Problems Closed right hip fracture (Acute) CHRONIC ALCOHOL USE DEPENDENCE (Acute) Acute on recurrent fall (Acute) Non-STEMI (non-ST elevated myocardial infarction) (Acute) Preoperative cardiovascular examination (Acute) Subjective: Patient was seen and examined. She is much awake. Denies any fever or chills or shortness of breath. Patient is found the floor later on in the afternoon. She had been worked by physical therapy and placed in a chair. According to patient, she said that she was uncomfortable and felt like lying down. She put a pillow down and wanted to slide down. Denies any pain anywhere. Denies hitting her head. Her bed alarm was apparently going up at a time, nursing staff were rushin in. Vitals/I&O's: Vital Signs Temp Pulse Resp BP Pulse Ox 97.6 F L 88 20 H 147/88 H 96 07/28/17 15:37 07/28/17 15:37 07/28/17 15:37 07/28/17 15:37 07/28/17 15:37 Oxygen Flow Rate (L/min) 2 Oxygen Delivery Method Room Air Weight: 50.1 kg Body Mass Index (BMI) 20.2 Intake and Output for Last 24 Hours 07/26/17 07/27/17 07/28/17 23:59 23:59 23:59 Intake Total 2658.4 / 2658.4 1730.9 / 1730.9 1508 / 1508 Output Total 2150 / 2150 1700 / 1700 1550 / 1550 Balance 508.4 / 508.4 30.9 / 30.9 -42 / -42 General: Alert, Oriented x3, Cooperative, No apparent distress HEENT: Atraumatic, PERRLA, EOMI, Normocephalic Neck: Supple, No JVD, Negative Carotid Bruits Lungs: Clear to auscultation, Normal air movement Cardiovascular: Regular rate, Regular Rhythm, Normal S1, Normal S2, No murmurs Abdomen: Bowel Sounds Present, Soft, Non Tender, Non-Distended, No Hepato-splenomegaly Extremities: No edema, Tenderness - over the right hip, dressing intact, no new swelling or erythema. Skin: No rashes, No breakdown Musculoskeletal: No Tenderness to Palpation of Joints or Extremities Lymphatic: No Cervical, Supraclavicular, or Inguinal Adenopathy Neurological: Cranial nerves II-XII grossly intact Psych/Mental Status: Normal Affect, Appropriate Microbiology Past 72 Hours 07/25/17 01:12 Blood Culture (Wb) - Right Hand Blood Culture - Preliminary No growth in 48 hours. 07/25/17 01:05 Blood Culture (Wb) - Anticubital Right Blood Culture - Preliminary No growth in 48 hours. Current Medications Acetaminophen (Tylenol) 1,000 mg PO TID [facility] Last Admin: 07/28/17 14:26 Dose: 1,000 mg Al Hydroxide/Mg Hydroxide (Mylanta Ii) 30 ml PO Q6H PRN PRN PRN Reason: Gastric Burning Albuterol Sulfate (Ventolin Aerosols) 2.5 mg INHALATION Q2H PRN PRN PRN Reason: SHORTNESS OF BREATH Albuterol/Ipratropium (Duoneb) 3 ml INHALATION Q4H.RT [facility] Last Admin: 07/28/17 14:32 Dose: Not Given Aspirin (Ecotrin) 81 mg PO BIDCM [facility] Last Admin: 07/28/17 09:11 Dose: 81 mg Atorvastatin Calcium (Lipitor) 40 mg PO QHS [facility] Last Admin: 07/27/17 21:43 Dose: 40 mg Bisacodyl (Dulcolax) 10 mg RECTAL DAILY PRN PRN PRN Reason: Constipation Carvedilol (Coreg) 6.25 mg PO BID [facility] Last Admin: 07/28/17 11:22 Dose: 6.25 mg Docusate Sodium (Colace) 200 mg PO BID PRN PRN PRN Reason: Constipation Famotidine (Pepcid) 20 mg PO BID [facility] Last Admin: 07/28/17 09:11 Dose: 20 mg Folic Acid (Folic Acid) 1 mg PO DAILY@0800 [facility] Last Admin: 07/28/17 09:11 Dose: 1 mg Hydralazine HCl (Apresoline Iv) 10 mg IV Q4H PRN PRN PRN Reason: SBP>160 mmhg Sodium Chloride () 1,000 mls @ 75 mls/hr IV .[id number] [facility] Last Admin: 07/28/17 09:14 Dose: 75 mls/hr Piperacillin Sod/Tazobactam Sod (Zosyn) 3.375 gm in 50 mls @ 12.5 mls/hr IV Q8 [facility] Last Admin: 07/28/17 14:27 Dose: 12.5 mls/hr Loperamide HCl (Imodium) 2 - 4 mg PO UD PRN PRN Reason: LOOSE STOOLS Lorazepam (Ativan) 2 mg PO Q2H PRN PRN; Protocol PRN Reason: CIWA score > 8 but <15 Lorazepam (Ativan) 2 mg PO UD PRN; Protocol PRN Reason: CIWA score >/=15. Lorazepam (Ativan) 2 mg IV Q2H PRN PRN; Protocol PRN Reason: CIWA score > 8 but <15 Last Admin: 07/27/17 07:03 Dose: 2 mg Lorazepam (Ativan) 2 mg IV UD PRN; Protocol PRN Reason: CIWA score >/=15. Losartan Potassium (Cozaar) 25 mg PO DAILY [facility] Last Admin: 07/28/17 11:22 Dose: 25 mg Metoclopramide HCl (Reglan) 10 mg IV Q8H PRN PRN PRN Reason: Nausea/vomiting Multivitamins/Minerals ([facility]itamin With Minerals) [facility] Admin: 07/28/17 09:12 Dose: 1 tablet Nicotine (Nicoderm Cq (Pbkc)) 21 mg TRANSDERM. DAILY [facility] Last Admin: 07/28/17 09:12 Dose: 21 mg Nitroglycerin (Nitrostat) 0.4 mg SUBLINGUAL Q5M PRN PRN Reason: CHEST PAIN Nutritional Formula (Lactose Free) (Ensure Enlive) 120 ml PO 4X/DAY [facility] Last Admin: 07/28/17 15:22 Dose: Not Given Ondansetron HCl (Zofran) 4 mg IV Q8H PRN PRN PRN Reason: Nausea Potassium Phos/Sodium Phos (Neutra-Phos Packet) [facility] Last Admin: 07/28/17 11:23 Dose: 1 packet Sodium Chloride () 5 - 30 ml IV UD PRN PRN Reason: SALINE FLUSH Last Admin: 07/27/17 07:03 Dose: 10 ml Thiamine HCl (Vitamin B1) [facility] Last Admin: 07/28/17 09:11 Dose: 100 mg Medical Necessity - Tobacco Use Smoking Status: Current every day smoker Tobacco Use: Cigarettes Assessment/Plan Active and Suspected Problems Closed right hip fracture (Acute) CHRONIC ALCOHOL USE DEPENDENCE (Acute) Acute on recurrent fall (Acute) Non-STEMI (non-ST elevated myocardial infarction) (Acute) Preoperative cardiovascular examination (Acute) 67-year-old female who was admitted 07/23/17 due to mechanical fall resulting in right hip fracture. She has a past medical history of chronic alcohol abuse, tobacco dependence, history of TIA, history of alcoholic hepatitis, CAD status post PCI ?1. 1. General debility status post mechanical fall prior to admission resulting in right hip [id number] shows right intertrochanteric fracture. s/p repair, seen by physical and occupational therapy. Pain is controlled 2. Indeterminate cardiac enzymes tender to demand ischemia, history of CAD status post angioplasty and stent 3. Acute toxic encephalopathy suspected secondary to chronic alcohol abuse/history of alcoholic hepatitis, improving, off all sedatives, kept only on Tylenol 4. CAD status post PCI-on aspirin, statin, beta-gilmar. 5. Tobacco dependence-encourage smoking cessation. Nicotine replacement patch. 6. History of TIA-on aspirin, statin. 7. Severe protein calorie malnutrition-nutrition consult. Continue ensure supplementation. 8. Dysphagia-speech therapy consulted. Recommending mechanical soft consistency with thin liquids. 9. DVT prophylaxis-SCDs, aspirin 81 mg twice daily per ortho recommendations. Code Visit Inpatient E&M: 41342 Subs Hosp L3
--- NOTE | 2017-07-28 16:52 | PN_ITS ---
Patient Problems: Active and Suspected Problems Closed right hip fracture (Acute) CHRONIC ALCOHOL USE DEPENDENCE (Acute) Acute on recurrent fall (Acute) Non-STEMI (non-ST elevated myocardial infarction) (Acute) Preoperative cardiovascular examination (Acute) Subjective: Patient was seen and examined. She is much awake. Denies any fever or chills or shortness of breath. Patient is found the floor later on in the afternoon. She had been worked by physical therapy and placed in a chair. According to patient, she said that she was uncomfortable and felt like lying down. She put a pillow down and wanted to slide down. Denies any pain anywhere. Denies hitting her head. Her bed alarm was apparently going up at a time, nursing staff were rushin in. Vitals/I&O's: Vital Signs Temp Pulse Resp BP Pulse Ox 97.6 F L 88 20 H 147/88 H 96 07/28/17 15:37 07/28/17 15:37 07/28/17 15:37 07/28/17 15:37 07/28/17 15:37 Oxygen Flow Rate (L/min) 2 Oxygen Delivery Method Room Air Weight: 50.1 kg Body Mass Index (BMI) 20.2 Intake and Output for Last 24 Hours 07/26/17 07/27/17 07/28/17 23:59 23:59 23:59 Intake Total 2658.4 / 2658.4 1730.9 / 1730.9 1508 / 1508 Output Total 2150 / 2150 1700 / 1700 1550 / 1550 Balance 508.4 / 508.4 30.9 / 30.9 -42 / -42 General: Alert, Oriented x3, Cooperative, No apparent distress HEENT: Atraumatic, PERRLA, EOMI, Normocephalic Neck: Supple, No JVD, Negative Carotid Bruits Lungs: Clear to auscultation, Normal air movement Cardiovascular: Regular rate, Regular Rhythm, Normal S1, Normal S2, No murmurs Abdomen: Bowel Sounds Present, Soft, Non Tender, Non-Distended, No Hepato- splenomegaly Extremities: No edema, Tenderness - over the right hip, dressing intact, no new swelling or erythema. Skin: No rashes, No breakdown Musculoskeletal: No Tenderness to Palpation of Joints or Extremities Lymphatic: No Cervical, Supraclavicular, or Inguinal Adenopathy Neurological: Cranial nerves II-XII grossly intact Psych/Mental Status: Normal Affect, Appropriate Microbiology Past 72 Hours 07/25/17 01:12 Blood Culture (Wb) - Right Hand Blood Culture - Preliminary No growth in 48 hours. 07/25/17 01:05 Blood Culture (Wb) - Anticubital Right Blood Culture - Preliminary No growth in 48 hours. Current Medications Acetaminophen (Tylenol) 1,000 mg PO TID [facility] Last Admin: 07/28/17 14:26 Dose: 1,000 mg Al Hydroxide/Mg Hydroxide (Mylanta Ii) 30 ml PO Q6H PRN PRN PRN Reason: Gastric Burning Albuterol Sulfate (Ventolin Aerosols) 2.5 mg INHALATION Q2H PRN PRN PRN Reason: SHORTNESS OF BREATH Albuterol/Ipratropium (Duoneb) 3 ml INHALATION Q4H.RT [facility] Last Admin: 07/28/17 14:32 Dose: Not Given Aspirin (Ecotrin) 81 mg PO BIDCM [facility] Last Admin: 07/28/17 09:11 Dose: 81 mg Atorvastatin Calcium (Lipitor) 40 mg PO QHS [facility] Last Admin: 07/27/17 21:43 Dose: 40 mg Bisacodyl (Dulcolax) 10 mg RECTAL DAILY PRN PRN PRN Reason: Constipation Carvedilol (Coreg) 6.25 mg PO BID [facility] Last Admin: 07/28/17 11:22 Dose: 6.25 mg Docusate Sodium (Colace) 200 mg PO BID PRN PRN PRN Reason: Constipation Famotidine (Pepcid) 20 mg PO BID [facility] Last Admin: 07/28/17 09:11 Dose: 20 mg Folic Acid (Folic Acid) 1 mg PO DAILY@0800 [facility] Last Admin: 07/28/17 09:11 Dose: 1 mg Hydralazine HCl (Apresoline Iv) 10 mg IV Q4H PRN PRN PRN Reason: SBP>160 mmhg Sodium Chloride () 1,000 mls @ 75 mls/hr IV .[id number] [facility] Last Admin: 07/28/17 09:14 Dose: 75 mls/hr Piperacillin Sod/Tazobactam Sod (Zosyn) 3.375 gm in 50 mls @ 12.5 mls/hr IV Q8 [facility] Last Admin: 07/28/17 14:27 Dose: 12.5 mls/hr Loperamide HCl (Imodium) 2 - 4 mg PO UD PRN PRN Reason: LOOSE STOOLS Lorazepam (Ativan) 2 mg PO Q2H PRN PRN; Protocol PRN Reason: CIWA score > 8 but <15 Lorazepam (Ativan) 2 mg PO UD PRN; Protocol PRN Reason: CIWA score >/=15. Lorazepam (Ativan) 2 mg IV Q2H PRN PRN; Protocol PRN Reason: CIWA score > 8 but <15 Last Admin: 07/27/17 07:03 Dose: 2 mg Lorazepam (Ativan) 2 mg IV UD PRN; Protocol PRN Reason: CIWA score >/=15. Losartan Potassium (Cozaar) 25 mg PO DAILY [facility] Last Admin: 07/28/17 11:22 Dose: 25 mg Metoclopramide HCl (Reglan) 10 mg IV Q8H PRN PRN PRN Reason: Nausea/vomiting Multivitamins/Minerals ([facility]ivitamin With Minerals) [facility] Admin: 07/28/17 09:12 Dose: 1 tablet Nicotine (Nicoderm Cq (Pbkc)) 21 mg TRANSDERM. DAILY [facility] Last Admin: 07/28/17 09:12 Dose: 21 mg Nitroglycerin (Nitrostat) 0.4 mg SUBLINGUAL Q5M PRN PRN Reason: CHEST PAIN Nutritional Formula (Lactose Free) (Ensure Enlive) 120 ml PO 4X/DAY [facility] Last Admin: 07/28/17 15:22 Dose: Not Given Ondansetron HCl (Zofran) 4 mg IV Q8H PRN PRN PRN Reason: Nausea Potassium Phos/Sodium Phos (Neutra-Phos Packet) 1 [facility] Last Admin: 07/28/17 11:23 Dose: 1 packet Sodium Chloride () 5 - 30 ml IV UD PRN PRN Reason: SALINE FLUSH Last Admin: 07/27/17 07:03 Dose: 10 ml Thiamine HCl (Vitamin B1) [facility] Last Admin: 07/28/17 09:11 Dose: 100 mg Medical Necessity - Tobacco Use Smoking Status: Current every day smoker Tobacco Use: Cigarettes Assessment/Plan Active and Suspected Problems Closed right hip fracture (Acute) CHRONIC ALCOHOL USE DEPENDENCE (Acute) Acute on recurrent fall (Acute) Non-STEMI (non-ST elevated myocardial infarction) (Acute) Preoperative cardiovascular examination (Acute) 67-year-old female who was admitted 07/23/17 due to mechanical fall resulting in right hip fracture. She has a past medical history of chronic alcohol abuse, tobacco dependence, history of TIA, history of alcoholic hepatitis, CAD status post PCI ?1. 1. General debility status post mechanical fall prior to admission resulting in right hip [id number] shows right intertrochanteric fracture. s/p repair, seen by physical and occupational therapy. Pain is controlled 2. Indeterminate cardiac enzymes tender to demand ischemia, history of CAD status post angioplasty and stent 3. Acute toxic encephalopathy suspected secondary to chronic alcohol abuse/ history of alcoholic hepatitis, improving, off all sedatives, kept only on Tylenol 4. CAD status post PCI-on aspirin, statin, beta-gilmar. 5. Tobacco dependence-encourage smoking cessation. Nicotine replacement patch. 6. History of TIA-on aspirin, statin. 7. Severe protein calorie malnutrition-nutrition consult. Continue ensure supplementation. 8. Dysphagia-speech therapy consulted. Recommending mechanical soft consistency with thin liquids. 9. DVT prophylaxis-SCDs, aspirin 81 mg twice daily per ortho recommendations. Code Visit Inpatient E&M: 73292 Subs Hosp L3
--- NOTE | 2017-07-28 20:02 | CPS ---
Partial tx given, pt became combative, RN notified
[2017-07-28] MEDS: Atorvastatin Calcium 40 MG Tablet PO (21:32)
[2017-07-29] VITALS (7 sets, daily range): BP systolic 136–156; BP diastolic 82–94; PULSE 89–105; RESP 18–22; TEMP 36.4–36.9; O2SAT 93–95
[2017-07-29] MEDS: Piperacil/Tazobactam 3.375 GM/50 ML ML IV (05:24)
[2017-07-29] MEDS: Acetaminophen 500 MG Tablet 1000 MG PO ×2 (05:39→12:47)
--- NOTE | 2017-07-29 08:29 | CASEMGMT ---
SW spoke w/[place] in rehab, she states they will consider pt for rehab, SW will continue to follow. RANDY Membreno, TALENT REP
[2017-07-29] MEDS: Folic Acid 1 MG Tablet PO (10:36)
[2017-07-29] MEDS: Aspirin E.C. 81 MG Tablet PO ×2 (10:36→16:28)
[2017-07-29] MEDS: Na Biphos/Potassium Phosphate PACKET 1 PACKET PO ×3 (10:36→16:28)
[2017-07-29] MEDS: Thiamine Hydrochloride 100 MG Tablet PO (10:36)
[2017-07-29] MEDS: Multivitamins,Ther W-Minerals Tablet 1 TABLET PO (10:44)
[2017-07-29] MEDS: Carvedilol 6.25 MG Tablet PO (10:50)
[2017-07-29] MEDS: Famotidine 20 MG Tablet PO (10:50)
[2017-07-29] MEDS: Losartan Potassium 25 MG Tablet PO (10:50)
[2017-07-29] MEDS: 0.9% Normal Saline 1,000 ML 75 ML IV (11:25)
--- NOTE | 2017-07-29 12:16 | CASEMGMT ---
Addendum entered by Dominga Rosas 07/29/17 12:47: Italia confirmed pt can go to rehab today, RN will notify physician. SW let pt know she can go to rehab today, pt agreeable. SW asked if she would like SW to let her son know where she is going, pt is okay w/SW calling her son. SW called son Oscar, let him know that pt is agreeable to inpt rehab here at the hospital and will go today, is more alert and oriented today. Son also states pt texted him today and the messages were more coherent. Son asked if he should still come in, SW explained he does not need to come in for discharge planning, but can come in to see pt. Son states he will be here about 3:30pm. SW told him to check at the front office medical assistant when he walks in to see if pt has been moved to inpt rehab yet. SW had also spoken to pt briefly about her depression, pt again does acknowledge she is depressed. SW let her know will let the SW in rehab know this also, so she can talk w/the SW in rehab more about it. Pt states understanding. SW left message for SW in rehab letting her know pt is depressed, may need services when she leaves rehab. SW texted physician to let her know pt can be discharged to inpt rehab today. No further needs anticipated. RANDY Membreno, BOX CLOSING MACHINE OPERATOR Original Note: SW spoke w/PT and OT, they state pt is now agreeable to go somewhere for rehab, and they think pt would be a good rehab candidate. SW spoke w/pt in room, in regard to discharge plan. Pt more alert and oriented today. Pt states she realized when she got up with the walker that she can't do this at home, she states when she got up with the walker it was scary. SW spoke w/pt about discharge options, pt would like to go to inpt rehab, she states she can do 3 hours/therapy per day. SW inquired if she remembers what happened to her, pt states, I told everyone a thousand times I know what happened to me! Pt then asked when she would go to rehab, SW explained will find out and let her know. SW called rehab, [facility] is going to speak w/Dr. Navarrete to make sure they can take pt today, will call this SW back. SW will continue to follow. RANDY Membreno, BOX CLOSING MACHINE OPERATOR
--- NOTE | 2017-07-29 13:28 | PCM.TXEXTCAR ---
- Diet 07/28/17 10:26 Diet: Regular Diet Food consistency:: Mechanical Soft/Ground Liquid Consistency:: Regular/Thin Dietary Modifications:: Mechanical Soft Diet Is pt able to select menu?: Yes Diet Comments: Distaint supervision, meds w/ liquids, hold if not alert - Routine Orders/Code Status Routine Lab Work: CBC - within 3 days, BMP - within 3 days - Wound(s) L buttocks Wound Type: Pressure Injury bilat elbows Wound Type: scabbed over abrasions R buttocks Wound Type: Pressure Injury lower back Wound Type: Puncture left gluteal crease Wound Type: healed abrasion RIGHT HIP Wound Type: Surgical Incision Dressing Change: Dry Sterile Dressing - Therapies Weight Bearing: Weight bearing as tolerated Extremity Affected:: Right Lower Physical Therapy: Eval and Treat Occupational Therapy: Eval and Treat Speech Therapy: Eval and Treat - Allergies/Procedures Done in Hospital Allergies/Adverse Reactions: Allergies No Known Allergies Allergy (Verified 07/23/17 19:08) Procedures: - - s/p right hip arthroplasty - Type of Care/Length of Stay Estimated LOS: Convalescent Care Less Than 30 days Type of Care Needed: Skilled Rehab Potential: Good Prognosis: Good - Additional Orders/Day of Discharge Day of Discharge: 07/29/17 - Dietary and Speech Recommendations Dietitian Recommendations/Changes: Rec continue Regular diet with modified consistency per [employer]S AND CONTRACTS ASSISTANT. Continue Ensure Enlive on medpass. - Follow Up Care Primary Care Physician: Jose Peterson MD [Primary Care Provider] - Please follow up with your Primary Care Physician in: within 2 weeks Please Follow Up With: Mert Gifford DO When: in 2 weeks Please Follow Up With: Henry Bhat MD When: in 2-4 weeks
--- NOTE | 2017-07-29 13:35 | PCM.DC.SUM ---
Discharge Date and Diagnosis Date of Admission: 07/23/17 Date of Discharge: 07/29/17 - Primary Discharge Diagnosis Active and Suspected Problems Closed right hip fracture (Acute) CHRONIC ALCOHOL USE DEPENDENCE (Acute) Acute on recurrent fall (Acute) - Secondary Discharge Diagnosis Chronic Problems Alcoholic hepatitis (Chronic) Alcohol abuse (Chronic) CAD (coronary artery disease) (Chronic) Status post stent [facility]AND [facility] Hospital Course and Treatment Imaging Results: Clinical Impression(s) from Imaging Studies Brain CT 07/23/17 19:13 IMPRESSION: Chronic involutional changes of the brain. There are no acute findings. Electronically Signed: Zane Bowser MD at 20:23 EDT , Service support , Cervical Spine CT 07/23/17 19:14 IMPRESSION: Degenerative changes of the cervical spine. No acute abnormality of the spine. Electronically Signed: Zane Bowser MD at 20:21 EDT , Service support , Hip/Pelvis X-Ray 07/23/17 20:00 IMPRESSION: Comminuted slightly impacted right intertrochanteric fracture. Electronically Signed: Zane Bowser MD at 20:44 EDT , Service support , Chest X-Ray 07/23/17 20:02 IMPRESSION: There is an infiltrate in the right mid lung suggestive of a focal pneumonia. Electronically Signed: Zane Bowser MD at 20:46 EDT , Service support , Hip X-Ray 07/25/17 14:50 IMPRESSION: Fluoroscopic guidance during placement of a left hip screw. Electronically Signed: Tom Perdue, at 16:02 EDT Tel , Service support , Hip X-Ray 07/25/17 15:55 IMPRESSION: Interval placement of a right sided hip screw with intact hardware and satisfactory alignment. Electronically Signed: Tom Perdue, at 16:25 EDT Tel , Service support , Consultations 07/24/17 03:02 Consult: Onc/Wound/chemistry research assistant Routine Comment: wound buttocks, elbows lower back, perineal bruise Operations: None Procedures: None Summary of Care Provided: 67-year-old female who was admitted 07/23/17 due to mechanical fall resulting in right hip fracture. She has a past medical history of chronic alcohol abuse, tobacco dependence, history of TIA, history of alcoholic hepatitis, CAD status post PCI ?1. 1. General debility status post mechanical fall prior to admission resulting in right hip [id number] shows right intertrochanteric fracture. s/p repair repair by orthopedics. Discharged to inpatient rehab. 2. Indeterminate cardiac enzymes tender to demand ischemia, history of CAD status post angioplasty and stent, cardiology consulted, on beta-sophia, statin, aspirin. 3. Acute toxic encephalopathy suspected secondary to chronic alcohol abuse/history of alcoholic hepatitis, improving, off all sedatives, kept only on Tylenol 4. Depression, started on remeron 15mg QHS 5. Tobacco dependence-encourage smoking cessation, on nicotine replacement patch. 6. History of TIA-on aspirin, statin. 7. Severe protein calorie malnutrition-nutrition consulted, on ensure supplementation. 8. Dysphagia-speech therapy consulted, on mechanical soft consistency with thin liquids. Discharge Diet: No Restrictions Discharge Activity: Return to Normal Activity Home Medications: Medications to take at Discharge Acetaminophen [Tylenol] 1,000 mg PO TID 07/29/17 Albuterol Aerosols [Ventolin Aerosols] 2.5 mg INHALATION Q2H PRN PRN vial.neb. 07/29/17 Aspirin E.C. [Ecotrin] 81 mg PO BIDCM 07/29/17 Atorvastatin Calcium [Lipitor] 40 mg PO QHS 07/29/17 Bisacodyl [Dulcolax] 10 mg RECTAL DAILY PRN PRN suppos. 07/29/17 Carvedilol [Coreg (Beta Sophia)] 6.25 mg PO BID 07/29/17 Ensure Enlive 120 ml PO 4X/DAY 07/29/17 Famotidine [Pepcid] 20 mg PO BID 07/29/17 Folic Acid 1 mg PO DAILY@0800 07/29/17 Losartan Potassium [Cozaar] 25 mg PO DAILY 07/29/17 Mirtazapine [Remeron] 15 mg PO QHS 07/29/17 Multivitamins,Ther W-Minerals [Multivitamin With Minerals] 1 tablet PO DAILYCM 07/29/17 Na Biphos/Potassium Phosphate [Neutra-Phos Packet] 1 packet PO 4X/DAYCM 07/29/17 Nicotine [Nicoderm Cq] 21 mg TRANSDERM. DAILY 07/29/17 Thiamine Hydrochloride [Vitamin B1] 100 mg PO DAILYCM 07/29/17 Primary Care Physician: Jose Peterson MD [Primary Care Provider] - Please follow up with your Primary Care Physician in: within 2 weeks Please Follow Up With: Mert Gifford DO When: in 2 weeks Please Follow Up With: Henry Bhat MD When: in 2-4 weeks Disposition: [facility] facility Minutes spent on discharge:: 65 Patient Condition:: Stable Medical Necessity - Tobacco Use Smoking Status: Current every day smoker Tobacco Use: Cigarettes Meaningful Use Info Meaningful Use Diagnoses (Choose all that apply): None applicable Code Visit Inpatient E&M: 04897 Disch Hosp
--- NOTE | 2017-07-29 14:56 | CASEMGMT ---
Patient's son came to [facility]. SW spoke with him and let him know she will be going to the rehab unit today. SW told him how to get to the rehab unit. Plan: [facility] 4th floor rehab unit Ghislaine GOMEZ
[2017-07-29] MEDS: oxyCODONE 5 MG Tablet PO (14:59)
== END 2017-07-29 16:47 | DRG 480 ==
LOC: ED 21:05 → PCU 21:23
PROVIDERS: Family Medicine; Nurse Practitioner Family; Orthopaedic Surgery; Admitting Provider Internal Medicine; Emergency Provider Emergency Medicine; Family Provider Family Medicine; PCP Family Medicine; Visit Provider Internal Medicine
PROC: 0QS606Z Reposition Right Upper Femur with Intramedullary Internal Fixation Device, Open Approach (ICD-10-PCS; CPT 27245; principal; 2017-07-25 07:00)
DX: S72.141A Displaced intertrochanteric fracture of right femur, initial encounter for closed fracture (principal); E43 Unspecified severe protein-calorie malnutrition; G92 Toxic encephalopathy; I21.A1 Myocardial infarction type 2; E87.6 Hypokalemia; F10.20 Alcohol dependence, uncomplicated; Y90.2 Blood alcohol level of 40-59 mg/100 ml; K70.10 Alcoholic hepatitis without ascites; I25.10 Atherosclerotic heart disease of native coronary artery without angina pectoris; I10 Essential (primary) hypertension; I95.9 Hypotension, unspecified; E78.5 Hyperlipidemia, unspecified; R13.10 Dysphagia, unspecified; W18.30XA Fall on same level, unspecified, initial encounter; Y93.9 Activity, unspecified; Y92.9 Unspecified place or not applicable; Y99.9 Unspecified external cause status; F17.210 Nicotine dependence, cigarettes, uncomplicated; Z68.20 Body mass index [BMI] 20.0-20.9, adult; Z79.82 Long term (current) use of aspirin; Z79.899 Other long term (current) drug therapy; I25.2 Old myocardial infarction; Z86.73 Personal history of transient ischemic attack (TIA), and cerebral infarction without residual deficits; Z95.5 Presence of coronary angioplasty implant and graft
CPT/HCPCS: 36415; 70450; 71045; 72125; 73502; 76000; 80048; 80061; 80076; 80307; 80320; 81002; 82550; 83690; 83735; 83880; 84100; 84443; 84484; 85025; 85027; 85610; 85730; 86850; 86900; 87040; 87449; 87493; 87804; 92526; 93005; 93017; 93306; 93350; 94640; 94667; 94668; 97110; 97161; 97162; 97165; 97530; 97802; 99285; 99406; J7030; J7040; J7120; A4216; G0480; J2785

== ENCOUNTER 2017-07-29 17:00 | Inpatient (IN) | payer MEDICARE, OTHER, SELFPAY ==
[2017-07-29 17:19] VITALS: BP 144/84; PULSE 77; RESP 18; TEMP 36.6; O2SAT 97; BMI 21.4; BMI 21.5
[2017-07-29 20:02] VITALS: BP 164/97; PULSE 94; RESP 17; TEMP 36.4; O2SAT 95
[2017-07-29] MEDS: Acetaminophen 500 MG Tablet 1000 MG PO (20:37)
[2017-07-29] MEDS: Atorvastatin Calcium 40 MG Tablet PO (20:37)
[2017-07-29] MEDS: Mirtazapine 15 MG Tablet PO (20:38)
[2017-07-29] MEDS: LORazepam 0.5 MG Tablet PO (20:38)
[2017-07-29] MEDS: Na Biphos/Potassium Phosphate PACKET 1 PACKET PO (20:38)
[2017-07-29] MEDS: Famotidine 20 MG Tablet PO (20:38)
[2017-07-29] MEDS: Carvedilol 6.25 MG Tablet PO (20:54)
[2017-07-30] MEDS: Acetaminophen 500 MG Tablet 1000 MG PO ×3 (04:26→19:52)
[2017-07-30 06:45] VITALS: O2SAT 94
--- NOTE | 2017-07-30 07:47 | PN_ITS ---
Subjective: Patient was seen and examined. No new complains. She had complained of pain earlier on improved with oxycodone. Denies any fever, chills, SOB, chest pain. Vitals/I&O's: Vital Signs Temp Pulse Resp BP Pulse Ox 97.6 F L 94 17 164/97 H 95 07/29/17 20:02 07/29/17 20:02 07/29/17 20:02 07/29/17 20:02 07/29/17 20:02 Oxygen Delivery Method Room Air Weight: 53 kg Body Mass Index (BMI) 21.4 Finger Stick Blood Glucose 95 General: Alert, Oriented x3, Cooperative, No apparent distress HEENT: Atraumatic, PERRLA, EOMI, Normocephalic Oral: Moist Mucosa Neck: Supple Lungs: Clear to auscultation, Normal air movement Cardiovascular: Regular rate, Regular Rhythm, Normal S1, Normal S2, No murmurs Abdomen: Bowel Sounds Present, Soft, Non Tender, Non-Distended, No Hepato- splenomegaly Extremities: No edema Skin: No rashes, No breakdown Musculoskeletal: No Tenderness to Palpation of Joints or Extremities Lymphatic: No Cervical, Supraclavicular, or Inguinal Adenopathy Neurological: Cranial nerves II-XII grossly intact Psych/Mental Status: Normal Affect, Appropriate Current Medications Acetaminophen (Tylenol) 1,000 mg PO TID [facility] Last Admin: 07/30/17 04:26 Dose: 1,000 mg Albuterol Sulfate (Ventolin Aerosols) 2.5 mg INHALATION Q2H PRN PRN PRN Reason: SHORTNESS OF BREATH Asp[facility]) [facility] Atorvastatin Calcium (Lipitor) 40 mg PO QHS [facility] Last Admin: 07/29/17 20:37 Dose: 40 mg Bisacodyl (Dulcolax) 10 mg RECTAL DAILY PRN PRN PRN Reason: Constipation Carvedilol (Coreg) 6.25 mg PO BID [facility] Last Admin: 07/29/17 20:54 Dose: 6.25 mg Famotidine (Pepcid) 20 mg PO BID [facility] Last Admin: 07/29/17 20:38 Dose: 20 mg Folic Acid (Folic Acid) 1 mg PO DAILY@0800 [facility] Lorazepam (Ativan) 0.5 mg PO QHS PRN PRN PRN Reason: Insomnia Last Admin: 07/29/17 20:38 Dose: 0.5 mg Losartan Potassium (Cozaar) 25 mg PO DAILY [facility] Magnesium Hydroxide (Milk Of Magnesia) 30 ml PO .PRN X 1 PRN PRN Reason: Constipation Mirtazapine (Remeron) 15 mg PO QHS [facility] Last Admin: 07/29/17 20:38 Dose: 15 mg Multivitamins/Minerals (Multivitamin With Minerals) 1 tablet PO DAILYCM [facility] Nicotine (Nicoderm Cq (Pbkc)) 21 mg TRANSDERM. DAILY [facility] Nutritional Formula (Lactose Free) (Ensure Enlive) 120 ml PO 4X/DAY [facility] Last Admin: 07/29/17 20:39 Dose: 120 ml Oxycodone HCl (Oxyir) 5 mg PO Q6H PRN PRN PRN Reason: SEVERE PAIN (-01/04) Potassium Phos/Sodium Phos (Neutra-Phos Packet) [facility] Last Admin: 07/29/17 20:38 Dose: 1 packet Thiamine HCl (Vitamin B1) 100 [facility] Medical Necessity - Tobacco Use Smoking Status: Current every day smoker Tobacco Use: Cigarettes Assessment/Plan 67-year-old female with PMHx of chronic alcohol use, tobacco dependence, history of TIA, CAD admitted with debility related to mechanical fall resulting in right hip fracture. She is s/p repair on 07/25/17. 1. General debility secondary to acute traumatic intertrochanteric fracture, s/ p repair, here for therapy, pain is controlled on scheduled tylenol and prn oxycodone. Needs to follow-up per orthopedic recommedations. Wound care instructions per orthopedics team. Patient has hx of lethargy in PCU and was weaned off all narcotics. Wound monitor mentation closely. 2. Recent acute toxic encephalopathy suspected secondary to chronic alcohol abuse/history of alcoholic hepatitis, suspect cognitive impairment from probably Wernicke's encephalopathy, on thiamine, folic acid, multivitamins 3. CAD status post PCI-on aspirin, statin, beta-gilmar. 4.Tobacco dependence, on nicotine replacement patch. 5. History of TIA-on aspirin, statin. 6. Severe protein calorie malnutrition related to alcohol use disorder, on ensure supplementation. 7. Dysphagia-speech therapy consulted, on mechanical soft consistency with thin liquids. 9. DVT prophylaxis-SCDs, aspirin 81 mg twice daily per ortho recommendations. Code Visit Inpatient E&M: 66195 Subs Hosp L2
[2017-07-30] MEDS: oxyCODONE 5 MG Tablet PO ×2 (08:14→17:50)
[2017-07-30] MEDS: Multivitamins,Ther W-Minerals Tablet 1 TABLET PO (08:15)
[2017-07-30] MEDS: Famotidine 20 MG Tablet PO ×2 (08:15→19:33)
[2017-07-30] MEDS: Thiamine Hydrochloride 100 MG Tablet PO (08:15)
[2017-07-30] MEDS: Folic Acid 1 MG Tablet PO (08:15)
[2017-07-30] MEDS: Na Biphos/Potassium Phosphate PACKET 1 PACKET PO ×4 (08:15→19:33)
[2017-07-30] MEDS: Aspirin E.C. 81 MG Tablet PO ×2 (08:15→17:49)
[2017-07-30] MEDS: Losartan Potassium 25 MG Tablet PO (08:16)
[2017-07-30] MEDS: Carvedilol 6.25 MG Tablet PO ×2 (08:16→19:33)
[2017-07-30 08:19] LABS: Hematocrit 33.1 % (37-47); Mean Corp Hgb Conc 33.2 g/gl (32-36); Mean Corpuscular Hgb 39.1 pg (27.0-32.0); Mean Corpuscular Volume 117.8 fL (81-99); Mean Platelet Vol. 10.3 fl (6.2-12.0); Platelet Count 330 K/mm3 (150-450); RBC Distribution Width CV 13.2 % (11.6-14.6); RBC Distribution Width SD 55.3 fl (35.1-43.9); Red Blood Count 2.81 M/mm3 (4.2-5.4); White Blood Count 9.4 K/mm3 (4.4-11.0)
[2017-07-30 08:20] LABS: Scan Indicated on CBC? Y/N NO
[2017-07-30 08:24] VITALS: BP 131/81; PULSE 102; RESP 18; TEMP 36.5; O2SAT 95
[2017-07-30 08:31] VITALS: RESP 18
[2017-07-30 08:59] LABS: ALB/GLOB Ratio 0.5 RATIO (0.9-2.4); AST(SGOT) 83 U/L (15-37); Alanine Aminotransfer ALT/SGPT 42 U/L (13-56); Albumin, Serum 2.1 g/dL (3.2-5.0); Alkaline Phosphatase 161 U/L (45-117); Anion Gap 8 (5-15); BUN 4 mg/dL (7-18); BUN/Creat Ratio 9.3 RATIO (10-20); Calcium,Total 8.4 mg/dL (8.5-10.1); Chloride 113 mmol/L (98-107); Creatinine, Serum 0.43 mg/dL (0.55-1.02); EST Glomerular Filtration Rate 156 mL/min (>60); Est Glom Filt Rate - Afr Amer 188 mL/min (>60); Estimated Creatinine Clearance 41.19 ml/min; Globulin 3.9 g/dL (2.2-4.2); Glucose 124 mg/dL (74-106); Magnesium 1.6 mg/dL (1.6-2.6); Phosphorus 3.2 mg/dL (2.5-4.9); Potassium 3.2 mmol/L (3.5-5.1); Sodium Level 146 mmol/L (136-145)
[2017-07-30 18:36] VITALS: BP 126/71; PULSE 100; RESP 18; TEMP 36.5; O2SAT 95
[2017-07-30] MEDS: Atorvastatin Calcium 40 MG Tablet PO (19:33)
[2017-07-30] MEDS: Mirtazapine 15 MG Tablet PO (19:33)
[2017-07-31] MEDS: Acetaminophen 500 MG Tablet 1000 MG PO ×3 (05:49→20:15)
[2017-07-31 06:52] VITALS: O2SAT 95
[2017-07-31 09:21] VITALS: BP 106/71; PULSE 99; RESP 17; TEMP 36.6; O2SAT 97
[2017-07-31] MEDS: Carvedilol 6.25 MG Tablet PO ×2 (09:23→20:15)
[2017-07-31] MEDS: oxyCODONE 5 MG Tablet PO ×2 (09:23→20:49)
[2017-07-31] MEDS: Famotidine 20 MG Tablet PO ×2 (09:23→20:15)
[2017-07-31] MEDS: Losartan Potassium 25 MG Tablet PO (09:23)
[2017-07-31] MEDS: Aspirin E.C. 81 MG Tablet PO ×2 (09:24→17:49)
[2017-07-31] MEDS: Folic Acid 1 MG Tablet PO (09:24)
[2017-07-31] MEDS: Multivitamins,Ther W-Minerals Tablet 1 TABLET PO (09:24)
[2017-07-31] MEDS: Thiamine Hydrochloride 100 MG Tablet PO (09:24)
[2017-07-31] MEDS: Na Biphos/Potassium Phosphate PACKET 1 PACKET PO ×4 (09:29→20:15)
--- NOTE | 2017-07-31 11:49 | PCM.HP.STD ---
History of Present Illness Date of Admission: 07/29/17 Chief Complaint: Debility The patient is a 67 year old female with a history of balance trouble and alcohol dependence who lost her balance and fell at home are trying to arise from her toilet due to dizziness, resulting in a right hip fracture. She presented to the hospital on 07/25/17 and had a open reduction and internal fixation performed that day by Dr. Gifford. Her postoperative course was uneventful and she now presents to the rehab unit debilitation in order to improve her functional status so that she can return home. She lives at home with her son in a two-story house. Far she is tolerating her stay in the rehab unit with good control of her pain, no insomnia, and no GI or complaints. She has not drank any alcohol for approximately 1 week now and feels that she is doing well. In the hospital she was also diagnosed with protein calorie malnutrition. She also has a history of coronary artery disease. Past Medical History Past Medical History (Chronic Problems): Chronic Problems Alcoholic hepatitis (Chronic) Alcohol abuse (Chronic) CAD (coronary artery disease) (Chronic) Status post stent Allergies No Known Allergies Allergy (Verified 07/23/17 19:08) Home Medications: Ambulatory Orders Medication Instructions Recorded Acetaminophen [Tylenol] 1,000 mg PO TID 07/29/17 Albuterol Aerosols [Ventolin 2.5 mg INHALATION Q2H PRN PRN 07/29/17 Aerosols] vial.neb. Aspirin E.C. [Ecotrin] 81 mg PO BIDCM 07/29/17 Atorvastatin Calcium [Lipitor] 40 mg PO QHS 07/29/17 Bisacodyl [Dulcolax] 10 mg RECTAL DAILY PRN PRN suppos. 07/29/17 Carvedilol [Coreg (Beta Sophia)] 6.25 mg PO BID 07/29/17 Ensure Enlive 120 ml PO 4X/DAY 07/29/17 Famotidine [Pepcid] 20 mg PO BID 07/29/17 Folic Acid 1 mg PO DAILY@0800 07/29/17 Losartan Potassium [Cozaar] 25 mg PO DAILY 07/29/17 Mirtazapine [Remeron] 15 mg PO QHS 07/29/17 Multivitamins,Ther W-Minerals 1 tablet PO DAILYCM 07/29/17 [Multivitamin With Minerals] Na Biphos/Potassium Phosphate 1 packet PO 4X/DAYCM 07/29/17 [Neutra-Phos Packet] Nicotine [Nicoderm Cq] 21 mg TRANSDERM. DAILY 07/29/17 Thiamine Hydrochloride [Vitamin B1] 100 mg PO DAILYCM 07/29/17 Surgical History: hysterectomy, - - cad with stent Smoking Status: Current every day smoker Tobacco Use: Cigarettes - *Family History Maternal History Items: - - does not know Paternal History Items: - - does not know Review of Systems Constitutional: Denies: Chills, Fever, Weight Change HEENT: Denies: Head Aches, Sinus Congestion, Sinus Drainage Cardiovascular: Denies: Chest Pain, Palpitations Respiratory: Denies: Cough, Shortness of breath at rest, Sputum production Gastrointestinal: Denies: Abdominal Pain, Nausea, Vomiting Genitourinary: Denies: Dysuria Musculoskeletal: Denies: Joint Pain, Joint Tenderness Skin: Denies: Rash, Wounds Neurological: Denies: Numbness, Tingling, Focal weakness Psychiatric: Denies: Anxiety, Depression, Homicidal Ideations, Suicidal Ideations Hematologic/ Lymphatic: Denies: Easy Bruising, Easy Bleeding VTE Information - Inpt Only VTE Present on Admission: Yes VTE Pharm Prophylaxis ordered?: Yes - Physical Exam General: Alert, Oriented x3, Cooperative HEENT: Atraumatic, PERRLA, EOMI, Normocephalic Neck: Supple, No JVD, Negative Carotid Bruits Lungs: Clear to auscultation, Normal air movement Cardiovascular: Regular rate, No murmurs Abdomen: Bowel Sounds Present, Soft, Non Tender Extremities: No edema, Capillary Refill Less than 3 Seconds Skin: No rashes, No breakdown Musculoskeletal: No Tenderness to Palpation of Joints or Extremities Neurological: Cranial nerves II-XII grossly intact Psych/Mental Status: Normal Affect, Appropriate Vital Signs Temp Pulse Resp BP Pulse Ox 36.6 C 99 17 106/71 97 07/31/17 09:21 07/31/17 09:21 07/31/17 09:21 07/31/17 09:21 07/31/17 09:21 Oxygen Delivery Method Room Air Weight: 53 kg Body Mass Index (BMI) 21.4 Finger Stick Blood Glucose 95 Intake and Output for Last 24 Hours 07/29/17 07/30/17 07/31/17 23:59 23:59 23:59 Output Total 250 / 250 300 / 300 Balance -250 / -250 -300 / -300 Current Medications Generic Name Dose Route Start Last Admin Trade Name Freq PRN Reason Stop Dose Admin Acetaminophen 1,000 mg 07/29/17 22:00 07/31/17 05:49 Tylenol PO 1,000 mg TID DARY Administration Albuterol Sulfate 2.5 mg 07/29/17 18:30 Ventolin Aerosols INHALATION Q2H PRN PRN SHORTNESS OF BREATH Aspirin 81 mg 07/30/17 08:00 07/31/17 09:24 Ecotrin PO 81 mg BIDCM [facility] Administration Atorvastatin Calcium 40 mg 07/29/17 22:00 07/30/17 19:33 Lipitor PO 40 mg QHS [facility] Administration Bisacodyl 10 mg 07/29/17 18:30 Dulcolax RECTAL DAILY PRN PRN Constipation Carvedilol 6.25 mg 07/29/17 22:00 07/31/17 09:23 Coreg PO 6.25 mg BID [facility] Administration Famotidine 20 mg 07/29/17 22:00 07/31/17 09:23 Pepcid PO 20 mg BID DARY Administration Folic Acid 1 mg 07/30/17 08:00 07/31/17 09:24 Folic Acid PO 1 mg DAILY@0800 DARY Administration Losartan Potassium 25 mg 07/30/17 10:00 07/31/17 09:23 Cozaar PO 25 mg DAILY [facility]ARY Administration Magnesium Hydroxide 30 ml 07/29/17 18:33 Milk Of Magnesia PO .PRN X 1 PRN Constipation Mirtazapine 15 mg 07/29/17 22:00 07/30/17 19:33 Remeron PO 15 mg QHS [facility] Administration Multivitamins/Minerals 1 tablet 07/30/17 08:00 07/31/17 09:24 Multivitamin With Minerals PO 1 tablet DAILYCM [facility] Administration Nicotine 21 mg 07/30/17 10:00 07/31/17 09:24 Nicoderm Cq (Pbkc) TRANSDERM. 21 mg DAILY [facility] Administration Nutritional Formula (Lactose Free) 120 ml 07/29/17 22:00 07/31/17 09:28 Ensure Enlive PO 120 ml 4X/DAY [facility] Administration Oxycodone HCl 5 mg 07/30/17 07:46 07/31/17 09:23 Oxyir PO 5 mg Q6H PRN PRN Administration SEVERE PAIN (6-01/04) Potassium Phos/Sodium Phos 1 packet 07/29/17 22:00 07/31/17 09:29 Neutra-Phos Packet PO 1 packet 4X/DAYCM [facility] Administration Thiamine HCl 100 mg 07/30/17 08:00 07/31/17 09:24 Vitamin B1 PO 100 mg DAILYCM [facility] Administration Assessment/Plan Impression: Debility status post right hip fracture status post open reduction internal fixation performed 07/25/[address] Gifford. Goal of therapy is adventism of her prior functional independence. Her balance and dizziness is likely due to malnutrition due to her chronic alcohol use which she is now abstaining from and will continue to do so. Plan: Physical therapy for gait and balance Occupational Therapy for ADLs Speech therapy for cognition Continue alcohol abstention As needed analgesics Bowel protocol DVT prophylaxis: Lovenox
--- NOTE | 2017-07-31 11:52 | HP.PCM_ITS ---
History of Present Illness Date of Admission: 07/29/17 Chief Complaint: Debility The patient is a 67 year old female with a history of balance trouble and alcohol dependence who lost her balance and fell at home are trying to arise from her toilet due to dizziness, resulting in a right hip fracture. She presented to the hospital on 07/25/17 and had a open reduction and internal fixation performed that day by Dr. Gifford. Her postoperative course was uneventful and she now presents to the rehab unit debilitation in order to improve her functional status so that she can return home. She lives at home with her son in a two-story house. Far she is tolerating her stay in the rehab unit with good control of her pain, no insomnia, and no GI or complaints. She has not drank any alcohol for approximately 1 week now and feels that she is doing well. In the hospital she was also diagnosed with protein calorie malnutrition. She also has a history of coronary artery disease. Past Medical History Past Medical History (Chronic Problems): Chronic Problems Alcoholic hepatitis (Chronic) Alcohol abuse (Chronic) CAD (coronary artery disease) (Chronic) Status post stent Allergies No Known Allergies Allergy (Verified 07/23/17 19:08) Home Medications: Ambulatory Orders Medication Instructions Recorded Acetaminophen [Tylenol] 1,000 mg PO TID 07/29/17 Albuterol Aerosols [Ventolin 2.5 mg INHALATION Q2H PRN PRN 07/29/17 Aerosols] vial.neb. Aspirin E.C. [Ecotrin] 81 mg PO BIDCM 07/29/17 Atorvastatin Calcium [Lipitor] 40 mg PO QHS 07/29/17 Bisacodyl [Dulcolax] 10 mg RECTAL DAILY PRN PRN suppos. 07/29/17 Carvedilol [Coreg (Beta Sophia)] 6.25 mg PO BID 07/29/17 Ensure Enlive 120 ml PO 4X/DAY 07/29/17 Famotidine [Pepcid] 20 mg PO BID 07/29/17 Folic Acid 1 mg PO DAILY@0800 07/29/17 Losartan Potassium [Cozaar] 25 mg PO DAILY 07/29/17 Mirtazapine [Remeron] 15 mg PO QHS 07/29/17 Multivitamins,Ther W-Minerals 1 tablet PO DAILYCM 07/29/17 [Multivitamin With Minerals] Na Biphos/Potassium Phosphate 1 packet PO 4X/DAYCM 07/29/17 [Neutra-Phos Packet] Nicotine [Nicoderm Cq] 21 mg TRANSDERM. DAILY 07/29/17 Thiamine Hydrochloride [Vitamin B1] 100 mg PO DAILYCM 07/29/17 Surgical History: hysterectomy, - - cad with stent Smoking Status: Current every day smoker Tobacco Use: Cigarettes - *Family History Maternal History Items: - - does not know Paternal History Items: - - does not know Review of Systems Constitutional: Denies: Chills, Fever, Weight Change HEENT: Denies: Head Aches, Sinus Congestion, Sinus Drainage Cardiovascular: Denies: Chest Pain, Palpitations Respiratory: Denies: Cough, Shortness of breath at rest, Sputum production Gastrointestinal: Denies: Abdominal Pain, Nausea, Vomiting Genitourinary: Denies: Dysuria Musculoskeletal: Denies: Joint Pain, Joint Tenderness Skin: Denies: Rash, Wounds Neurological: Denies: Numbness, Tingling, Focal weakness Psychiatric: Denies: Anxiety, Depression, Homicidal Ideations, Suicidal Ideations Hematologic/ Lymphatic: Denies: Easy Bruising, Easy Bleeding VTE Information - Inpt Only VTE Present on Admission: Yes VTE Pharm Prophylaxis ordered?: Yes - Physical Exam General: Alert, Oriented x3, Cooperative HEENT: Atraumatic, PERRLA, EOMI, Normocephalic Neck: Supple, No JVD, Negative Carotid Bruits Lungs: Clear to auscultation, Normal air movement Cardiovascular: Regular rate, No murmurs Abdomen: Bowel Sounds Present, Soft, Non Tender Extremities: No edema, Capillary Refill Less than 3 Seconds Skin: No rashes, No breakdown Musculoskeletal: No Tenderness to Palpation of Joints or Extremities Neurological: Cranial nerves II-XII grossly intact Psych/Mental Status: Normal Affect, Appropriate Vital Signs Temp Pulse Resp BP Pulse Ox 36.6 C 99 17 106/71 97 07/31/17 09:21 07/31/17 09:21 07/31/17 09:21 07/31/17 09:21 07/31/17 09:21 Oxygen Delivery Method Room Air Weight: 53 kg Body Mass Index (BMI) 21.4 Finger Stick Blood Glucose 95 Intake and Output for Last 24 Hours 07/29/17 07/30/17 07/31/17 23:59 23:59 23:59 Output Total 250 / 250 300 / 300 Balance -250 / -250 -300 / -300 Current Medications Generic Name Dose Route Start Last Admin Trade Name Freq PRN Reason Stop Dose Admin Acetaminophen 1,000 mg 07/29/17 22:00 07/31/17 05:49 Tylenol PO 1,000 mg TID DARY Administration Albuterol Sulfate 2.5 mg 07/29/17 18:30 Ventolin Aerosols INHALATION Q2H PRN PRN SHORTNESS OF BREATH Aspirin 81 mg 07/30/17 08:00 07/31/17 09:24 Ecotrin PO 81 mg BIDCM [facility] Administration Atorvastatin Calcium 40 mg 07/29/17 22:00 07/30/17 19:33 Lipitor PO 40 mg QHS [facility] Administration Bisacodyl 10 mg 07/29/17 18:30 Dulcolax RECTAL DAILY PRN PRN Constipation Carvedilol 6.25 mg 07/29/17 22:00 07/31/17 09:23 Coreg PO 6.25 mg BID [facility] Administration Famotidine 20 mg 07/29/17 22:00 07/31/17 09:23 Pepcid PO 20 mg BID [facility] Administration Folic Acid 1 mg 07/30/17 08:00 07/31/17 09:24 Folic Acid PO 1 mg DAILY@0800 [facility] Administration Losartan Potassium 25 mg 07/30/17 10:00 07/31/17 09:23 Cozaar PO 25 mg DAILY [facility] Administration Magnesium Hydroxide 30 ml 07/29/17 18:33 Milk Of Magnesia PO .PRN X 1 PRN Constipation Mirtazapine 15 mg 07/29/17 22:00 07/30/17 19:33 Remeron PO 15 mg QHS [facility] Administration Multivitamins/Minerals 1 tablet 07/30/17 08:00 07/31/17 09:24 Multivitamin With Minerals PO 1 tablet DAILYCM [facility] Administration Nicotine 21 mg 07/30/17 10:00 07/31/17 09:24 Nicoderm Cq (Pbkc) TRANSDERM. 21 mg DAILY [facility] Administration Nutritional Formula (Lactose Free) 120 ml 07/29/17 22:00 07/31/17 09:28 Ensure Enlive PO 120 ml 4X/DAY [facility] Administration Oxycodone HCl 5 mg 07/30/17 07:46 07/31/17 09:23 Oxyir PO 5 mg Q6H PRN PRN Administration SEVERE PAIN (6-01/04) Potassium Phos/Sodium Phos 1 packet 07/29/17 22:00 07/31/17 09:29 Neutra-Phos Packet PO 1 packet 4X/DAYCM [facility] Administration Thiamine HCl 100 mg 07/30/17 08:00 07/31/17 09:24 Vitamin B1 PO 100 mg DAILYCM [facility] Administration Assessment/Plan Impression: Debility status post right hip fracture status post open reduction internal fixation performed 07/25/[address] Gifford. Goal of therapy is adventist of her prior functional independence. Her balance and dizziness is likely due to malnutrition due to her chronic alcohol use which she is now abstaining from and will continue to do so. Plan: Physical therapy for gait and balance Occupational Therapy for ADLs Speech therapy for cognition Continue alcohol abstention As needed analgesics Bowel protocol DVT prophylaxis: Lovenox
--- NOTE | 2017-07-31 11:52 | PCM.RU.PYE ---
Admission Information Status Changes from Prescreening?: No changes Identified Actual Problem List:: Falls, Cognitve Impr/Memory Loss, Alteration in Nutrition, Mobility Impaired, Self Care Deficit, Ineffect.D/C Plan r/t Psy Potential Problem List:: DVT, Bleeding, Infection, UTI, Aspiration, Falls, Skin Integrity, Depression Risk of Complications DVT: LMWH, JUANCARLOS Hose, Sequential Compression Device Bleeding: Monitor Lab Values, Nursing to Teach Precautions for anti-coagulation therapy., Wound, if applicable, to be assessed every shift., Stroke patients assessed for lethargy or change in status. Infection: Clinical Staff to Monitor for S/S of infection:, S/S of infection include fever, redness, warmth, etc. Urinary Tract Infection: Monitor for frequency, burning, discomfort, or incontinence., Nursing will obtain urine sample for urinalysis and C&S when ordered. Aspiration: Clinical staff will monitor for coughing, drooling, congestion., Speech will evaluate swallowing and dsyphasia., Nursing will monitor patient swallowing during meals. Falls: Patient will be evaluated for Fall Precautions, Patient will be placed on Fall Precautions as indicated per protocol. Skin Breakdown: Nursing will assess skin daily using assessment tool., Nursing will place on Skin Breakdown Precautions as indicated. Pain: Clinical staff will assess patient's pain level per protocol., Medications will be given, if needed, and the pain level reassessed., Other methods: Massage, distraction, decrease stimulus, etc. used PRN. Plan of Care Patient requires physician specializing in physical medicine and rehab oversight to provide close medical supervision of rehab issues including: Pain Management, Sleep Problems, Bowel and Bladder, Medical and co-morbidity Management, DVT prophylaxis, Rehabilitation Leadership, Coordination of treatment team Patient needs Physical Therapy: For a minimum of 1 hour, At least 5 out of 7 days Patient needs Physical Therapy to improve:: Mobility, Mobility, Mobility, Strengthening, Transfers, Stretching, ROM, Endurance, Stairs, Gait, Balance Patient needs Occupational Therapy: For a minimum of 1 hour, At least 5 out of 7 days Patient needs Occupational Therapy to improve ADL's incl.: Eating, Grooming, Bathing, Dressing, Toileting, Toilet transfers, Community Reintegration, Higher functioning activities, Household tasks, Adaptive Equipment, Splinting, Other activities as determined Patient requires speech therapy: For a minimum of 1 hour, At least 5 out of 7 days Patient requires speech therapy for: Swallowing, Cognition, Language Skills, Compensatory Strategies Patient requires 24/ Rehabilitation Nursing for: Pain Issues, Identifying and preventing risk factors, Monitoring and reporting current medical conditions, Assisting with ambulation, transfer, and all ADL's, Teaching patients about disease process and medications, Family teaching, Providing safe environment, Bowel and Bladder Issues, Skin integrity, Medication Management Patient needs [employer]/ Case Management for: Discharge Planning, Arranging Home Equipment or Services, Family Interventions Patient needs Dietary and Nutrition Services for: Adequate Nutrition, Nutritional Supplements, Nutritional Education Goals Patient will remain: free from falls, or injury at time of discharge. Patient will perform bed mobility at: MOD I level of assist. Patient will complete transfers from bed to chair at: MOD I level of assist. Patient will ambulate: 100 feet, with MOD I assist, with LRD Patient will complete upper body dressing at: MOD I level of assist. Patient will complete lower body dressing at: MOD I level of assist. Patient will complete toileting at: MOD I level of assist. Patient will perform bathing at: MOD I level of assist. Patient will complete grooming at: MOD I level of assist. Patient will complete home management skills at: MOD I level of assist. Patient will achieve: 12 stairs, at MOD I assist Patient will have pain level of: of 3 or less Patient's skin will: remain intact, free from infection. Patient will receive: adequate nutrition. Discharge Planning Pt Prognosis for Sig. Practical Improv. w/in Reasonable Time: Good Anticipated D/C Destination: Home with Outpt Therapy Was Preadmission Assessment Accurate?: Yes
[2017-07-31 20:13] VITALS: BP 158/93; PULSE 98; RESP 17; TEMP 36.6; O2SAT 94
[2017-07-31] MEDS: Atorvastatin Calcium 40 MG Tablet PO (20:15)
[2017-07-31] MEDS: Mirtazapine 15 MG Tablet PO (20:15)
--- NOTE | 2017-07-31 20:54 | NURSING ---
Routine tylenol given earlier. Pt now c/o pain 10/10 in her surgical hip. PRN oxyir given. Ice pack applied to right hip. Pt states was exercising alot today
[2017-08-01] MEDS: Acetaminophen 500 MG Tablet 1000 MG PO ×3 (06:43→21:14)
[2017-08-01 09:40] VITALS: BP 158/93; PULSE 89; RESP 16; TEMP 36.4; O2SAT 96
[2017-08-01] MEDS: Carvedilol 6.25 MG Tablet PO ×2 (11:00→21:16)
[2017-08-01] MEDS: Losartan Potassium 25 MG Tablet PO (11:00)
[2017-08-01] MEDS: Thiamine Hydrochloride 100 MG Tablet PO (11:00)
[2017-08-01] MEDS: Multivitamins,Ther W-Minerals Tablet 1 TABLET PO (11:00)
[2017-08-01] MEDS: Famotidine 20 MG Tablet PO ×2 (11:00→21:16)
[2017-08-01] MEDS: Na Biphos/Potassium Phosphate PACKET 1 PACKET PO ×4 (11:00→21:16)
[2017-08-01] MEDS: Folic Acid 1 MG Tablet PO (11:00)
[2017-08-01] MEDS: Aspirin E.C. 81 MG Tablet PO ×2 (11:00→17:08)
[2017-08-01] MEDS: oxyCODONE 5 MG Tablet PO ×2 (11:01→18:37)
--- NOTE | 2017-08-01 13:29 | PCM.PN.NEU ---
Subjective: Patient seen and examined. No complaints over night. Tolerating therapy. Denies any shortness of breath or chest pains. Her incision on her right hip, the upper incision has serous drainage, it is well approximated, with 11 susan intact, there is no redness or warmth to the site, and no pain on palpation. The smaller of the two incisions is C/D/I with 6 susan intact, no redness or warmth noted to the site. No issues with GI/. She did admit she was depressed started her on Lexapro 10mg. - Physical Exam General: Alert, Oriented x3, Cooperative HEENT: Atraumatic, PERRLA, EOMI, Normocephalic Neck: Supple, No JVD, Negative Carotid Bruits Lungs: Clear to auscultation, Normal air movement Cardiovascular: Regular rate, No murmurs Abdomen: Bowel Sounds Present, Soft, Non Tender Extremities: No edema, Capillary Refill Less than 3 Seconds Skin: No rashes, No breakdown Musculoskeletal: No Tenderness to Palpation of Joints or Extremities Neurological: Cranial nerves II-XII grossly intact Psych/Mental Status: Normal Affect, Appropriate, Alert and oriented to time, place, person, mood and affect Vital Signs Temp Pulse Resp BP Pulse Ox 97.6 F L 89 16 158/93 H 96 08/01/17 09:40 08/01/17 09:40 08/01/17 09:40 08/01/17 09:40 08/01/17 09:40 Oxygen Delivery Method Room Air Weight: 53 kg Body Mass Index (BMI) 21.4 Finger Stick Blood Glucose 95 Intake and Output for Last 24 Hours 07/30/17 07/31/17 08/01/17 23:59 23:59 23:59 Intake Total 240 / 240 220 / 220 Output Total 250 / 250 500 / 500 145 / 145 Balance -250 / -250 -260 / -260 75 / 75 Active Medications Acetaminophen (Tylenol) 1,000 mg PO TID [facility] Last Admin: 08/01/17 06:43 Dose: 1,000 mg Albuterol Sulfate (Ventolin Aerosols) 2.5 mg INHALATION Q2H PRN PRN PRN Reason: SHORTNESS OF BREATH Aspirin (Ecotrin) 81 mg PO BIDCM [facility] Last Admin: 08/01/17 11:00 Dose: 81 mg Atorvastatin Calcium (Lipitor) 40 mg PO QHS [facility] Last Admin: 07/31/17 20:15 Dose: 40 mg Bisacodyl (Dulcolax) 10 mg RECTAL DAILY PRN PRN PRN Reason: Constipation Carvedilol (Coreg) 6.25 mg PO BID [facility] Last Admin: 08/01/17 11:00 Dose: 6.25 mg Enoxaparin Sodium (Lovenox) 40 mg SC DAILY [facility] Escitalopram Oxalate (Lexapro) 10 mg PO DAILY [facility] Famotidine (Pepcid) 20 mg PO BID [facility] Last Admin: 08/01/17 11:00 Dose: 20 mg Fentanyl (Duragesic Patch) 12 mcg TRANSDERM. Q3D [facility] Last Admin: 08/01/17 11:01 Dose: 12 mcg Folic Acid (Folic Acid) 1 mg PO DAILY@0800 [facility] Last Admin: 08/01/17 11:00 Dose: 1 mg Losartan Potassium (Cozaar) 25 mg PO DAILY [facility] Last Admin: 08/01/17 11:00 Dose: 25 mg Magnesium Hydroxide (Milk Of Magnesia) 30 ml PO .PRN X 1 PRN PRN Reason: Constipation Mirtazapine (Remeron) 15 mg PO QHS [facility] Last Admin: 07/31/17 20:15 Dose: 15 mg Multivitamins/Minerals ([facility]ivitamin With Minerals) [facility] Admin: 08/01/17 11:00 Dose: 1 tablet Nicotine (Nicoderm Cq (Pbkc)) 21 mg TRANSDERM. DAILY [facility] Last Admin: 08/01/17 11:00 Dose: 21 mg Nutritional Formula (Lactose Free) (Ensure Enlive) 120 ml PO 4X/DAY [facility] Last Admin: 08/01/17 11:02 Dose: 120 ml Oxycodone HCl (Oxyir) 5 mg PO Q6H PRN PRN PRN Reason: SEVERE PAIN (6-10/10) Last Admin: 08/01/17 11:01 Dose: 5 mg Potassium Phos/Sodium Phos (Neutra-Phos Packet) [facility] Last Admin: 08/01/17 11:00 Dose: 1 packet Thiamine HCl (Vitamin B1) [facility] Last Admin: 08/01/17 11:00 Dose: 100 mg Medical Necessity - Tobacco Use Smoking Status: Current every day smoker Tobacco Use: Cigarettes Assessment/Plan Impression: Debility status post right hip fracture status post open reduction internal fixation performed 07/25/[address] Gifford. Goal of therapy is adventism of her prior functional independence. Her balance and dizziness is likely due to malnutrition due to her chronic alcohol use which she is now abstaining from and will continue to do so. Plan: - Physical therapy for gait and balance - Occupational Therapy for ADLs - Speech therapy for cognition - Continue alcohol abstention - As needed analgesics - Bowel protocol - DVT prophylaxis: Lovenox - Right hip incision - The upper incision has 11 susan, with mild Serous drainage noted, the incision is well approximated, no redness or warmth noted. the small incision has 6 susan is C/D/I. - Depression -> start low dose of Lexapro at bedtime.
--- NOTE | 2017-08-01 13:33 | PN.NEURO_ITS ---
Subjective: Patient seen and examined. No complaints over night. Tolerating therapy. Denies any shortness of breath or chest pains. Her incision on her right hip, the upper incision has serous drainage, it is well approximated, with 11 susan intact, there is no redness or warmth to the site, and no pain on palpation. The smaller of the two incisions is C/D/I with 6 susan intact, no redness or warmth noted to the site. No issues with GI/. She did admit she was depressed started her on Lexapro 10mg. - Physical Exam General: Alert, Oriented x3, Cooperative HEENT: Atraumatic, PERRLA, EOMI, Normocephalic Neck: Supple, No JVD, Negative Carotid Bruits Lungs: Clear to auscultation, Normal air movement Cardiovascular: Regular rate, No murmurs Abdomen: Bowel Sounds Present, Soft, Non Tender Extremities: No edema, Capillary Refill Less than 3 Seconds Skin: No rashes, No breakdown Musculoskeletal: No Tenderness to Palpation of Joints or Extremities Neurological: Cranial nerves II-XII grossly intact Psych/Mental Status: Normal Affect, Appropriate, Alert and oriented to time, place, person, mood and affect Vital Signs Temp Pulse Resp BP Pulse Ox 97.6 F L 89 16 158/93 H 96 08/01/17 09:40 08/01/17 09:40 08/01/17 09:40 08/01/17 09:40 08/01/17 09:40 Oxygen Delivery Method Room Air Weight: 53 kg Body Mass Index (BMI) 21.4 Finger Stick Blood Glucose 95 Intake and Output for Last 24 Hours 07/30/17 07/31/17 08/01/17 23:59 23:59 23:59 Intake Total 240 / 240 220 / 220 Output Total 250 / 250 500 / 500 145 / 145 Balance -250 / -250 -260 / -260 75 / 75 Active Medications Acetaminophen (Tylenol) 1,000 mg PO TID [facility] Last Admin: 08/01/17 06:43 Dose: 1,000 mg Albuterol Sulfate (Ventolin Aerosols) 2.5 mg INHALATION Q2H PRN PRN PRN Reason: SHORTNESS OF BREATH Aspirin (Ecotrin) 81 mg PO BIDCM [facility] Last Admin: 08/01/17 11:00 Dose: 81 mg Atorvastatin Calcium (Lipitor) 40 mg PO QHS [facility] Last Admin: 07/31/17 20:15 Dose: 40 mg Bisacodyl (Dulcolax) 10 mg RECTAL DAILY PRN PRN PRN Reason: Constipation Carvedilol (Coreg) 6.25 mg PO BID [facility] Last Admin: 08/01/17 11:00 Dose: 6.25 mg Enoxaparin Sodium (Lovenox) 40 mg SC DAILY [facility] Escitalopram Oxalate (Lexapro) 10 mg PO DAILY [facility] Famotidine (Pepcid) 20 mg PO BID [facility] Last Admin: 08/01/17 11:00 Dose: 20 mg Fentanyl (Duragesic Patch) 12 mcg TRANSDERM. Q3D [facility] Last Admin: 08/01/17 11:01 Dose: 12 mcg Folic Acid (Folic Acid) 1 mg PO DAILY@0800 [facility] Last Admin: 08/01/17 11:00 Dose: 1 mg Losartan Potassium (Cozaar) 25 mg PO DAILY [facility] Last Admin: 08/01/17 11:00 Dose: 25 mg Magnesium Hydroxide (Milk Of Magnesia) 30 ml PO .PRN X 1 PRN PRN Reason: Constipation Mirtazapine (Remeron) 15 mg PO QHS [facility] Last Admin: 07/31/17 20:15 Dose: 15 mg Multivitamins/Minerals (Multivitamin With Minerals) [facility] Last Admin: 08/01/17 11:00 Dose: 1 tablet Nicotine (Nicoderm Cq (Pbkc)) 21 mg TRANSDERM. DAILY [facility] Last Admin: 08/01/17 11:00 Dose: 21 mg Nutritional Formula (Lactose Free) (Ensure Enlive) 120 ml PO 4X/DAY [facility] Last Admin: 08/01/17 11:02 Dose: 120 ml Oxycodone HCl (Oxyir) 5 mg PO Q6H PRN PRN PRN Reason: SEVERE PAIN (6-10/10) Last Admin: 08/01/17 11:01 Dose: 5 mg Potassium Phos/Sodium Phos (Neutra-Phos Packet) [facility] Last Admin: 08/01/17 11:00 Dose: 1 packet Thiamine HCl (Vitamin B1) 100 mg [facility] Last Admin: 08/01/17 11:00 Dose: 100 mg Medical Necessity - Tobacco Use Smoking Status: Current every day smoker Tobacco Use: Cigarettes Assessment/Plan Impression: Debility status post right hip fracture status post open reduction internal fixation performed 07/25/[address] Gifford. Goal of therapy is zoroastrian of her prior functional independence. Her balance and dizziness is likely due to malnutrition due to her chronic alcohol use which she is now abstaining from and will continue to do so. Plan: - Physical therapy for gait and balance - Occupational Therapy for ADLs - Speech therapy for cognition - Continue alcohol abstention - As needed analgesics - Bowel protocol - DVT prophylaxis: Lovenox - Right hip incision - The upper incision has 11 susan, with mild Serous drainage noted, the incision is well approximated, no redness or warmth noted. the small incision has 6 susan is C/D/I. - Depression -> start low dose of Lexapro at bedtime.
--- NOTE | 2017-08-01 15:11 | PN_ITS ---
Subjective: Patient is a 67-year-old lady with history of chronic alcohol abuse who presented with a fall resulting in right hip fracture for which patient underwent surgical repair subsequently transferred to the inpatient rehab unit for recuperation Objective: GENERAL: cooperative HEENT: Clear conjunctiva, NECK; supple, normal thyroid, CHEST: Clear to auscultation bilaterally,. HEART: Regular S1 S2, no audible murmurs ABDOMEN: soft, non-tender, normoactive bowel sounds, RECTAL: deferred EXTREMITIES: No edema, no clubbing, no cyanosis. MINE SUPERINTENDENT: Awake, no lateralizing signs. SKIN: No Rash, Vitals/I&O's: Vital Signs Temp Pulse Resp BP Pulse Ox 97.6 F L 89 16 158/93 H 96 08/01/17 09:40 08/01/17 09:40 08/01/17 09:40 08/01/17 09:40 08/01/17 09:40 Oxygen Delivery Method Room Air Weight: 53 kg Body Mass Index (BMI) 21.4 Finger Stick Blood Glucose 95 Intake and Output for Last 24 Hours 07/30/17 07/31/17 08/01/17 23:59 23:59 23:59 Intake Total 240 / 240 220 / 220 Output Total 250 / 250 500 / 500 145 / 145 Balance -250 / -250 -260 / -260 75 / 75 Current Medications Acetaminophen (Tylenol) 1,000 mg PO TID [facility] Last Admin: 08/01/17 14:14 Dose: 1,000 mg Albuterol Sulfate (Ventolin Aerosols) 2.5 mg INHALATION Q2H PRN PRN PRN Reason: SHORTNESS OF BREATH [facility] Last Admin: 08/01/17 11:00 Dose: 81 mg Atorvastatin Calcium (Lipitor) 40 mg PO QHS [facility] Last Admin: 07/31/17 20:15 Dose: 40 mg Bisacodyl (Dulcolax) 10 mg RECTAL DAILY PRN PRN PRN Reason: Constipation Carvedilol (Coreg) 6.25 mg PO BID [facility] Last Admin: 08/01/17 11:00 Dose: 6.25 mg Enoxaparin Sodium (Lovenox) 40 mg SC DAILY [facility] Escitalopram Oxalate (Lexapro) 10 mg PO DAILY [facility] Famotidine (Pepcid) 20 mg PO BID [facility] Last Admin: 08/01/17 11:00 Dose: 20 mg Fentanyl (Duragesic Patch) 12 mcg TRANSDERM. Q3D [facility] Last Admin: 08/01/17 11:01 Dose: 12 mcg Folic Acid (Folic Acid) 1 mg PO DAILY@0800 [facility] Last Admin: 08/01/17 11:00 Dose: 1 mg Losartan Potassium (Cozaar) 25 mg PO DAILY [facility] Last Admin: 08/01/17 11:00 Dose: 25 mg Magnesium Hydroxide (Milk Of Magnesia) 30 ml PO .PRN X 1 PRN PRN Reason: Constipation Mirtazapine (Remeron) 15 mg PO QHS [facility] Last Admin: 07/31/17 20:15 Dose: 15 mg Multivitamins/Minerals (Multivitamin With Minerals) [facility] Last Admin: 08/01/17 11:00 Dose: 1 tablet Nicotine (Nicoderm Cq (Pbkc)) 21 mg TRANSDERM. DAILY [facility] Last Admin: 08/01/17 11:00 Dose: 21 mg Nutritional Formula (Lactose Free) (Ensure Enlive) 120 ml PO 4X/DAY [facility] Last Admin: 08/01/17 14:14 Dose: 120 ml Oxycodone HCl (Oxyir) 5 mg PO Q6H PRN PRN PRN Reason: SEVERE PAIN (6-10/10) Last Admin: 08/01/17 11:01 Dose: 5 mg Potassium Phos/Sodium Phos (Neutra-Phos Packet) [facility] Last Admin: 08/01/17 14:14 Dose: 1 packet Thiamine HCl (Vitamin B1) [facility] Last Admin: 08/01/17 11:00 Dose: 100 mg Medical Necessity - Tobacco Use Smoking Status: Current every day smoker Tobacco Use: Cigarettes Assessment/Plan Patient is a 67-year-old lady with history of chronic alcohol abuse who presented with a fall resulting in right hip fracture for which patient underwent surgical repair subsequently transferred to the inpatient rehab unit for recuperation 1. Status post acute traumatic intertrochanteric hip fracture patient underwent Right hip cephalo-medullary nail-[place] gamma for [address] Mert Gifford 2. Physical debility due to above PT OT tolerated 3. Acute toxic encephalopathy this was suspected to be secondary to patient history of chronic alcohol abuse . Suspected cognitive impairment from chronic alcohol abuse with acute encephalopathy patient is on thiamine folic acid and multivitamins 5. CAD with previous PCI currently on aspirin started as well as beta blockers 6. Hypertension-blood pressure controlled, home medications continued with dose adjustment as needed 7. Dyslipidemia-patient is on statin therapy, continued at home dose 8. Chronic alcohol abuse counseled on cessation 9. Tobacco dependence counseled on cessation, offered nicotine patch for tobacco cravings 10. History of TIAs on aspirin as well as statin therapy 11. Severe protein calorie malnutrition secondary to patient chronic alcohol use patient is on Ensure supplementation as recommended by podiatry since 12. Dysphagia-speech therapy consulted, on mechanical soft consistency with thin liquids. 13. DVT prophylaxis-SCDs, aspirin 81 mg twice daily per ortho recommendations. Code Visit Inpatient E&M: 12665 Subs Hosp L2
[2017-08-01] MEDS: Escitalopram Oxalate 10 MG Tablet PO (15:12)
[2017-08-01] MEDS: Enoxaparin 40 MG/0.4 ML Syringe SC (15:12)
[2017-08-01 20:09] VITALS: BP 155/89; PULSE 97; RESP 20; TEMP 36.4; O2SAT 93
[2017-08-01] MEDS: Atorvastatin Calcium 40 MG Tablet PO (21:16)
[2017-08-01] MEDS: Mirtazapine 15 MG Tablet PO (21:16)
[2017-08-02] MEDS: oxyCODONE 5 MG Tablet PO ×4 (00:48→20:17)
[2017-08-02] MEDS: Acetaminophen 500 MG Tablet 1000 MG PO ×3 (05:45→21:11)
[2017-08-02 06:44] VITALS: O2SAT 92
[2017-08-02 07:00] VITALS: BP 133/69; PULSE 76; RESP 12; TEMP 36.8; O2SAT 92
[2017-08-02] MEDS: Aspirin E.C. 81 MG Tablet PO ×2 (09:54→17:20)
[2017-08-02] MEDS: Famotidine 20 MG Tablet PO ×2 (09:54→21:10)
[2017-08-02] MEDS: Folic Acid 1 MG Tablet PO (09:54)
[2017-08-02] MEDS: Losartan Potassium 25 MG Tablet PO (09:54)
[2017-08-02] MEDS: Thiamine Hydrochloride 100 MG Tablet PO (09:54)
[2017-08-02] MEDS: Multivitamins,Ther W-Minerals Tablet 1 TABLET PO (09:54)
[2017-08-02] MEDS: Carvedilol 6.25 MG Tablet PO ×2 (09:54→21:10)
[2017-08-02] MEDS: Enoxaparin 40 MG/0.4 ML Syringe SC (09:55)
[2017-08-02] MEDS: Na Biphos/Potassium Phosphate PACKET 1 PACKET PO ×4 (09:55→21:10)
[2017-08-02] MEDS: Escitalopram Oxalate 10 MG Tablet PO (10:43)
[2017-08-02 19:58] VITALS: BP 144/77; PULSE 89; RESP 18; TEMP 36.7; O2SAT 93
[2017-08-02] MEDS: Mirtazapine 15 MG Tablet PO (21:10)
[2017-08-02] MEDS: Atorvastatin Calcium 40 MG Tablet PO (21:10)
[2017-08-03] MEDS: Acetaminophen 500 MG Tablet 1000 MG PO ×3 (05:28→20:47)
[2017-08-03] MEDS: Aspirin E.C. 81 MG Tablet PO ×2 (07:44→16:54)
[2017-08-03] MEDS: Escitalopram Oxalate 10 MG Tablet PO (07:44)
[2017-08-03] MEDS: Multivitamins,Ther W-Minerals Tablet 1 TABLET PO (07:44)
[2017-08-03] MEDS: Famotidine 20 MG Tablet PO ×2 (07:44→20:46)
[2017-08-03] MEDS: Losartan Potassium 25 MG Tablet PO (07:44)
[2017-08-03] MEDS: Na Biphos/Potassium Phosphate PACKET 1 PACKET PO ×4 (07:44→20:46)
[2017-08-03] MEDS: Thiamine Hydrochloride 100 MG Tablet PO (07:44)
[2017-08-03] MEDS: Folic Acid 1 MG Tablet PO (07:44)
[2017-08-03] MEDS: Carvedilol 6.25 MG Tablet PO ×2 (07:44→20:46)
[2017-08-03] MEDS: Enoxaparin 40 MG/0.4 ML Syringe SC (07:46)
[2017-08-03 08:24] VITALS: BP 145/76; PULSE 77; RESP 18; TEMP 36.8; O2SAT 91
--- NOTE | 2017-08-03 10:07 | PN_ITS ---
Subjective: Patient seen complains of feeling tired Objective: GENERAL: cooperative HEENT: Clear conjunctiva, NECK; supple, normal thyroid, CHEST: Clear to auscultation bilaterally,. HEART: Regular S1 S2, no audible murmurs ABDOMEN: soft, non-tender, normoactive bowel sounds, RECTAL: deferred EXTREMITIES: No edema, no clubbing, no cyanosis. PLAN NURSE: Awake, no lateralizing signs. SKIN: No Rash, Vitals/I&O's: Vital Signs Temp Pulse Resp BP Pulse Ox 98.2 F 77 18 145/76 H 91 08/03/17 08:24 08/03/17 08:24 08/03/17 08:24 08/03/17 08:24 08/03/17 08:24 Oxygen Delivery Method Room Air Weight: 55 kg Body Mass Index (BMI) 21.4 Finger Stick Blood Glucose 95 Intake and Output for Last 24 Hours 08/01/17 08/02/17 08/03/17 23:59 23:59 23:59 Intake Total 220 / 220 600 / 600 240 / 240 Output Total 145 / 145 Balance 75 / 75 600 / 600 240 / 240 Current Medications Acetaminophen (Tylenol) 1,000 mg PO TID [facility] Last Admin: 08/03/17 05:28 Dose: 1,000 mg Albuterol Sulfate (Ventolin Aerosols) 2.5 mg INHALATION Q2H PRN PRN PRN Reason: SHORTNESS OF BREATH [facility] Last Admin: 08/03/17 07:44 Dose: 81 mg Atorvastatin Calcium (Lipitor) 40 mg PO QHS [facility] Last Admin: 08/02/17 21:10 Dose: 40 mg Bisacodyl (Dulcolax) 10 mg RECTAL DAILY PRN PRN PRN Reason: Constipation Carvedilol (Coreg) 6.25 mg PO BID [facility] Last Admin: 08/03/17 07:44 Dose: 6.25 mg Enoxaparin Sodium (Lovenox) 40 mg SC DAILY [facility] Last Admin: 08/03/17 07:46 Dose: 40 mg Escitalopram Oxalate (Lexapro) 5 mg PO DAILY [facility] Famotidine (Pepcid) 20 mg PO BID [facility] Last Admin: 08/03/17 07:44 Dose: 20 mg Folic Acid (Folic Acid) 1 mg PO DAILY@0800 [facility] Last Admin: 08/03/17 07:44 Dose: 1 mg Losartan Potassium (Cozaar) 25 mg PO DAILY [facility] Last Admin: 08/03/17 07:44 Dose: 25 mg Magnesium Hydroxide (Milk Of Magnesia) 30 ml PO .PRN X 1 PRN PRN Reason: Constipation Mirtazapine (Remeron) 15 mg PO QHS [facility] Last Admin: 08/02/17 21:10 Dose: 15 mg Multivitamins/Minerals (Multivitamin With Minerals) [facility] Last Admin: 08/03/17 07:44 Dose: 1 tablet Nicotine (Nicoderm Cq (Pbkc)) 21 mg TRANSDERM. DAILY [facility] Last Admin: 08/03/17 07:43 Dose: 21 mg Nutritional Formula (Lactose Free) (Ensure Enlive) 120 ml PO 4X/DAY [facility] Last Admin: 08/03/17 07:45 Dose: 120 ml Oxycodone HCl (Oxyir) 5 mg PO Q6H PRN PRN PRN Reason: SEVERE PAIN (6-10/10) Last Admin: 08/02/17 20:17 Dose: 5 mg Potassium Phos/Sodium Phos (Neutra-Phos Packet) [facility] Last Admin: 08/03/17 07:44 Dose: 1 packet Thiamine HCl (Vitamin B1) [facility] Last Admin: 08/03/17 07:44 Dose: 100 mg Medical Necessity - Tobacco Use Smoking Status: Current every day smoker Tobacco Use: Cigarettes Assessment/Plan Patient is a 67-year-old lady with history of chronic alcohol abuse who presented with a fall resulting in right hip fracture for which patient underwent surgical repair subsequently transferred to the inpatient rehab unit for recuperation 1. Status post acute traumatic intertrochanteric hip fracture patient underwent Right hip cephalo-medullary nail-[place] gamma for [address] Mert Gifford 2. Physical debility due to above PT OT tolerated 3. Acute toxic encephalopathy this was suspected to be secondary to patient history of chronic alcohol abuse . Suspected cognitive impairment from chronic alcohol abuse with acute encephalopathy patient is on thiamine folic acid and multivitamins 5. CAD with previous PCI currently on aspirin started as well as beta blockers 6. Hypertension-blood pressure controlled, home medications continued with dose adjustment as needed 7. Dyslipidemia-patient is on statin therapy, continued at home dose 8. Chronic alcohol abuse counseled on cessation 9. Tobacco dependence counseled on cessation, offered nicotine patch for tobacco cravings 10. History of TIAs on aspirin as well as statin therapy 11. Severe protein calorie malnutrition secondary to patient chronic alcohol use patient is on Ensure supplementation as recommended by podiatry since 12. Dysphagia-speech therapy consulted, on mechanical soft consistency with thin liquids. 13. DVT prophylaxis-SCDs, aspirin 81 mg twice daily per ortho recommendations. Code Visit Inpatient E&M: 43917 Subs Hosp L2
--- NOTE | 2017-08-03 10:15 | PCM.PN.NEU ---
Subjective: Patient seen and examined. This morning during therapy became excessively tired, with some weakness noted. Patient was recently started on Lexapro 10mg and a low dose Fentanyl patch. Will decrease the Lexapro to 5 mg and d/c the patch. Blood pressure and heart rate was good at 109/72, and 98, her SpO2 was 93% on room air. Denies any shortness of breath or chest pains. - Physical Exam General: Alert, Oriented x3, Cooperative HEENT: Atraumatic, PERRLA, EOMI, Normocephalic Neck: Supple, No JVD, Negative Carotid Bruits Lungs: Clear to auscultation, Normal air movement Cardiovascular: Regular rate, No murmurs Abdomen: Bowel Sounds Present, Soft, Non Tender Extremities: No edema, Capillary Refill Less than 3 Seconds Skin: No rashes, No breakdown Musculoskeletal: No Tenderness to Palpation of Joints or Extremities Neurological: Cranial nerves II-XII grossly intact Psych/Mental Status: Normal Affect, Appropriate, Alert and oriented to time, place, person, mood and affect Vital Signs Temp Pulse Resp BP Pulse Ox 98.2 F 77 18 145/76 H 91 08/03/17 08:24 08/03/17 08:24 08/03/17 08:24 08/03/17 08:24 08/03/17 08:24 Oxygen Delivery Method Room Air Weight: 55 kg Body Mass Index (BMI) 21.4 Finger Stick Blood Glucose 95 Intake and Output for Last 24 Hours 08/01/17 08/02/17 08/03/17 23:59 23:59 23:59 Intake Total 220 / 220 600 / 600 240 / 240 Output Total 145 / 145 Balance 75 / 75 600 / 600 240 / 240 Active Medications Acetaminophen (Tylenol) 1,000 mg PO TID [facility] Last Admin: 08/03/17 05:28 Dose: 1,000 mg Albuterol Sulfate (Ventolin Aerosols) 2.5 mg INHALATION Q2H PRN PRN PRN Reason: SHORTNESS OF BREATH Aspirin (Ecotrin) 81 mg PO BIDCM [facility] Last Admin: 08/03/17 07:44 Dose: 81 mg Atorvastatin Calcium (Lipitor) 40 mg PO QHS [facility] Last Admin: 08/02/17 21:10 Dose: 40 mg Bisacodyl (Dulcolax) 10 mg RECTAL DAILY PRN PRN PRN Reason: Constipation Carvedilol (Coreg) 6.25 mg PO BID [facility] Last Admin: 08/03/17 07:44 Dose: 6.25 mg Enoxaparin Sodium (Lovenox) 40 mg SC DAILY [facility] Last Admin: 08/03/17 07:46 Dose: 40 mg Escitalopram Oxalate (Lexapro) 5 mg PO DAILY [facility] Famotidine (Pepcid) 20 mg PO BID [facility] Last Admin: 08/03/17 07:44 Dose: 20 mg Folic Acid (Folic Acid) 1 mg PO DAILY@0800 [facility] Last Admin: 08/03/17 07:44 Dose: 1 mg Losartan Potassium (Cozaar) 25 mg PO DAILY [facility] Last Admin: 08/03/17 07:44 Dose: 25 mg Magnesium Hydroxide (Milk Of Magnesia) 30 ml PO .PRN X 1 PRN PRN Reason: Constipation Mirtazapine (Remeron) 15 mg PO QHS [facility] Last Admin: 08/02/17 21:10 Dose: 15 mg Multivitamins/Minerals (Multivitamin With Minerals) [facility] Last Admin: 08/03/17 07:44 Dose: 1 tablet Nicotine (Nicoderm Cq (Pbkc)) 21 mg TRANSDERM. DAILY [facility] Last Admin: 08/03/17 07:43 Dose: 21 mg Nutritional Formula (Lactose Free) (Ensure Enlive) 120 ml PO 4X/DAY [facility] Last Admin: 08/03/17 07:45 Dose: 120 ml Oxycodone HCl (Oxyir) 5 mg PO Q6H PRN PRN PRN Reason: SEVERE PAIN (6-10/10) Last Admin: 08/02/17 20:17 Dose: 5 mg Potassium Phos/Sodium Phos (Neutra-Phos Packet) [facility] Last Admin: 08/03/17 07:44 Dose: 1 packet Thiamine HCl (Vitamin B1) [facility] Last Admin: 08/03/17 07:44 Dose: 100 mg Medical Necessity - Tobacco Use Smoking Status: Current every day smoker Tobacco Use: Cigarettes Assessment/Plan Impression: Debility status post right hip fracture status post open reduction internal fixation performed 07/25/[address] Gifford. Goal of therapy is pentecostalism of her prior functional independence. Her balance and dizziness is likely due to malnutrition due to her chronic alcohol use which she is now abstaining from and will continue to do so. Plan: - Physical therapy for gait and balance - Occupational Therapy for ADLs - Speech therapy for cognition - Continue alcohol abstention - As needed analgesics - continue Oxy IR, will d/c the fentanyl patch, and re-assess again later today - Bowel protocol - DVT prophylaxis: Lovenox - Right hip incision - The upper incision has 11 susan, with mild Serous drainage noted, the incision is well approximated, no redness or warmth noted. the small incision has 6 susan is C/D/I. - Depression -> started Lexapro at bedtime, has been excessively tired, since starting it will decrease dose to 5 mg.
[2017-08-03] MEDS: oxyCODONE 5 MG Tablet PO (14:07)
[2017-08-03 20:24] VITALS: BP 163/82; PULSE 90; RESP 18; TEMP 36.5; O2SAT 92
[2017-08-03] MEDS: Mirtazapine 15 MG Tablet PO (20:46)
[2017-08-03] MEDS: Atorvastatin Calcium 40 MG Tablet PO (20:46)
--- NOTE | 2017-08-04 03:33 | NURSING ---
Reviewed and agree with [employer] documentation and [facility] charting.
[2017-08-04] MEDS: oxyCODONE 5 MG Tablet PO ×4 (04:27→21:22)
[2017-08-04] MEDS: Acetaminophen 500 MG Tablet 1000 MG PO ×3 (05:00→21:21)
[2017-08-04 07:51] VITALS: BP 117/67; PULSE 77; RESP 16; TEMP 36.8; O2SAT 92
[2017-08-04] MEDS: Escitalopram Oxalate 10 MG Tablet 5 MG PO (08:07)
[2017-08-04] MEDS: Losartan Potassium 25 MG Tablet PO (08:07)
[2017-08-04] MEDS: Famotidine 20 MG Tablet PO ×2 (08:07→21:21)
[2017-08-04] MEDS: Na Biphos/Potassium Phosphate PACKET 1 PACKET PO ×4 (08:07→21:21)
[2017-08-04] MEDS: Thiamine Hydrochloride 100 MG Tablet PO (08:07)
[2017-08-04] MEDS: Multivitamins,Ther W-Minerals Tablet 1 TABLET PO (08:07)
[2017-08-04] MEDS: Aspirin E.C. 81 MG Tablet PO (08:07)
[2017-08-04] MEDS: Carvedilol 6.25 MG Tablet PO ×2 (08:07→21:21)
[2017-08-04] MEDS: Folic Acid 1 MG Tablet PO (08:07)
[2017-08-04] MEDS: Enoxaparin 40 MG/0.4 ML Syringe SC (08:12)
--- NOTE | 2017-08-04 10:15 | CASEMGMT ---
Team meeting held. Patient present, no support person present at this time. Patient plans to discharge home with son, Oscar at time of discharge. Oscar works from home and is able to provide 24hr care for patient within the home. Patient approved 16 Medicare days with a discharge on or by 08/14/17. No discharge date set at this time. Patient to continue with further care and treatment on the Inpatient Rehab Unit. Patient requesting for this social media marketing specialist to contact Oscar to give an update on the team meeting. Support given. Telephone call to Oscar, voicemail left including a request for Oscar to contact this social media marketing specialist to obtain update. Will continue to follow. Kary OTMAS, THICKENER OPERATOR
--- NOTE | 2017-08-04 10:37 | PCM.PN.NEU ---
Subjective: Staffed in team meeting. Family was not at bedside, support worker will call son and update on team meeting. Questions answered. With Physical therapy, she is stand by to max assist to get to the edge of the bed at times, depending on pain level. She is minimal assist to go from a sitting position to a standing position. She is able to walk about 75 feet at contact guard, she requires cues to remember her weight bearing status. Next week will work on her endurance, ROM, and strength. With Occupational therapy, she is contact guard for getting on ad off the toileting, she requires minimal assist for upper body dressing and max assist for lower body assistance. With Speech therapy, she has been up graded to regular texture. foods, they have her doing oral exercises to help improve her oral muscles weakness. Today is her last day of speech therapy. With Nursing pain is still an issue, will change the frequency to Q4 that she may have the Oxy Ir. Will re-team again next 08/11. - Physical Exam General: Alert, Oriented x3, Cooperative HEENT: Atraumatic, PERRLA, EOMI, Normocephalic Neck: Supple, No JVD, Negative Carotid Bruits Lungs: Clear to auscultation, Normal air movement Cardiovascular: Regular rate, No murmurs Abdomen: Bowel Sounds Present, Soft, Non Tender Extremities: No edema, Capillary Refill Less than 3 Seconds Skin: No rashes, No breakdown Musculoskeletal: No Tenderness to Palpation of Joints or Extremities Neurological: Cranial nerves II-XII grossly intact Psych/Mental Status: Normal Affect, Appropriate, Alert and oriented to time, place, person, mood and affect Vital Signs Temp Pulse Resp BP Pulse Ox 98.2 F 77 16 117/67 92 08/04/17 07:51 08/04/17 07:51 08/04/17 07:51 08/04/17 07:51 08/04/17 07:51 Oxygen Delivery Method Room Air Weight: 55 kg Body Mass Index (BMI) 21.4 Finger Stick Blood Glucose 95 Intake and Output for Last 24 Hours 08/02/17 08/03/17 08/04/17 23:59 23:59 23:59 Intake Total 600 / 600 360 / 360 220 / 220 Balance 600 / 600 360 / 360 220 / 220 Active Medications Acetaminophen (Tylenol) 1,000 mg PO TID [facility] Last Admin: 08/04/17 05:00 Dose: 1,000 mg Albuterol Sulfate (Ventolin Aerosols) 2.5 mg INHALATION Q2H PRN PRN PRN Reason: SHORTNESS OF BREATH Aspirin (Ecotrin) 81 mg PO DAILY@0800 [facility] Atorvastatin Calcium (Lipitor) 40 mg PO QHS [facility] Last Admin: 08/03/17 20:46 Dose: 40 mg Bisacodyl (Dulcolax) 10 mg RECTAL DAILY PRN PRN PRN Reason: Constipation Carvedilol (Coreg) 6.25 mg PO BID [facility] Last Admin: 08/04/17 08:07 Dose: 6.25 mg Enoxaparin Sodium (Lovenox) 40 mg SC DAILY@0600 [facility] Escitalopram Oxalate (Lexapro) 5 mg PO DAILY [facility] Last Admin: 08/04/17 08:07 Dose: 5 mg Famotidine (Pepcid) 20 mg PO BID [facility] Last Admin: 08/04/17 08:07 Dose: 20 mg Folic Acid (Folic Acid) 1 mg PO DAILY@0800 [facility] Last Admin: 08/04/17 08:07 Dose: 1 mg Losartan Potassium (Cozaar) 25 mg PO DAILY [facility] Last Admin: 08/04/17 08:07 Dose: 25 mg Magnesium Hydroxide (Milk Of Magnesia) 30 ml PO .PRN X 1 PRN PRN Reason: Constipation Mirtazapine (Remeron) 15 mg PO QHS [facility] Last Admin: 08/03/17 20:46 Dose: 15 mg Multivitamins/Minerals (Multivitamin With Minerals) [facility] Last Admin: 08/04/17 08:07 Dose: 1 tablet Nicotine (Nicoderm Cq (Pbkc)) 21 mg TRANSDERM. DAILY [facility] Last Admin: 08/04/17 10:08 Dose: 21 mg Nutritional Formula (Lactose Free) (Ensure Enlive) 120 ml PO 4X/DAY [facility] Last Admin: 08/04/17 08:11 Dose: 120 ml Oxycodone HCl (Oxyir) 5 mg PO Q4H PRN PRN PRN Reason: SEVERE PAIN (6-01/04) Last Admin: 08/04/17 10:08 Dose: 5 mg Potassium Phos/Sodium Phos (Neutra-Phos Packet) [facility] Last Admin: 08/04/17 08:07 Dose: 1 packet Thiamine HCl (Vitamin B1) [facility] mg [facility] Last Admin: 08/04/17 08:07 Dose: 100 mg Medical Necessity - Tobacco Use Smoking Status: Current every day smoker Tobacco Use: Cigarettes Assessment/Plan Impression: Debility status post right hip fracture status post open reduction internal fixation performed 07/25/[address] Gifford. Goal of therapy is synagogue of her prior functional independence. Her balance and dizziness is likely due to malnutrition due to her chronic alcohol use which she is now abstaining from and will continue to do so. Plan: - Physical therapy for gait and balance - Occupational Therapy for ADLs - Speech therapy for cognition - Continue alcohol abstention - As needed analgesics - continue Oxy IR, will d/c the fentanyl patch, and re-assess again later today - Bowel protocol - DVT prophylaxis: Lovenox - Right hip incision - The upper incision has 11 susan, with mild Serous drainage noted, the incision is well approximated, no redness or warmth noted. the small incision has 6 susan is C/D/I. - Depression -> started Lexapro at bedtime, has been excessively tired, since starting it will decrease dose to 5 mg.
--- NOTE | 2017-08-04 10:55 | PN.NEURO_ITS ---
Subjective: Staffed in team meeting. Family was not at bedside, rail maintenance worker will call son and update on team meeting. Questions answered. With Physical therapy, she is stand by to max assist to get to the edge of the bed at times, depending on pain level. She is minimal assist to go from a sitting position to a standing position. She is able to walk about 75 feet at contact guard, she requires cues to remember her weight bearing status. Next week will work on her endurance, ROM , and strength. With Occupational therapy, she is contact guard for getting on ad off the toileting, she requires minimal assist for upper body dressing and max assist for lower body assistance. With Speech therapy, she has been up graded to regular texture. foods, they have her doing oral exercises to help improve her oral muscles weakness. Today is her last day of speech therapy. With Nursing pain is still an issue, will change the frequency to Q4 that she may have the Oxy Ir. Will re-team again next 08/11. - Physical Exam General: Alert, Oriented x3, Cooperative HEENT: Atraumatic, PERRLA, EOMI, Normocephalic Neck: Supple, No JVD, Negative Carotid Bruits Lungs: Clear to auscultation, Normal air movement Cardiovascular: Regular rate, No murmurs Abdomen: Bowel Sounds Present, Soft, Non Tender Extremities: No edema, Capillary Refill Less than 3 Seconds Skin: No rashes, No breakdown Musculoskeletal: No Tenderness to Palpation of Joints or Extremities Neurological: Cranial nerves II-XII grossly intact Psych/Mental Status: Normal Affect, Appropriate, Alert and oriented to time, place, person, mood and affect Vital Signs Temp Pulse Resp BP Pulse Ox 98.2 F 77 16 117/67 92 08/04/17 07:51 08/04/17 07:51 08/04/17 07:51 08/04/17 07:51 08/04/17 07:51 Oxygen Delivery Method Room Air Weight: 55 kg Body Mass Index (BMI) 21.4 Finger Stick Blood Glucose 95 Intake and Output for Last 24 Hours 08/02/17 08/03/17 08/04/17 23:59 23:59 23:59 Intake Total 600 / 600 360 / 360 220 / 220 Balance 600 / 600 360 / 360 220 / 220 Active Medications Acetaminophen (Tylenol) 1,000 mg PO TID [facility] Last Admin: 08/04/17 05:00 Dose: 1,000 mg Albuterol Sulfate (Ventolin Aerosols) 2.5 mg INHALATION Q2H PRN PRN PRN Reason: SHORTNESS OF BREATH Aspirin (Ecotrin) 81 mg PO DAILY@0800 [facility] Atorvastatin Calcium (Lipitor) 40 mg PO QHS [facility] Last Admin: 08/03/17 20:46 Dose: 40 mg Bisacodyl (Dulcolax) 10 mg RECTAL DAILY PRN PRN PRN Reason: Constipation Carvedilol (Coreg) 6.25 mg PO BID [facility] Last Admin: 08/04/17 08:07 Dose: 6.25 mg Enoxaparin Sodium (Lovenox) 40 mg SC DAILY@0600 [facility] Escitalopram Oxalate (Lexapro) 5 mg PO DAILY [facility] Last Admin: 08/04/17 08:07 Dose: 5 mg Famotidine (Pepcid) 20 mg PO BID [facility] Last Admin: 08/04/17 08:07 Dose: 20 mg Folic Acid (Folic Acid) 1 mg PO DAILY@0800 [facility] Last Admin: 08/04/17 08:07 Dose: 1 mg Losartan Potassium (Cozaar) 25 mg PO DAILY [facility] Last Admin: 08/04/17 08:07 Dose: 25 mg Magnesium Hydroxide (Milk Of Magnesia) 30 ml PO .PRN X 1 PRN PRN Reason: Constipation Mirtazapine (Remeron) 15 mg PO QHS [facility] Last Admin: 08/03/17 20:46 Dose: 15 mg Multivitamins/Minerals (Multivitamin With Minerals) [facility] Last Admin: 08/04/17 08:07 Dose: 1 tablet Nicotine (Nicoderm Cq (Pbkc)) 21 mg TRANSDERM. DAILY [facility] Last Admin: 08/04/17 10:08 Dose: 21 mg Nutritional Formula (Lactose Free) (Ensure Enlive) 120 ml PO 4X/DAY [facility] Last Admin: 08/04/17 08:11 Dose: 120 ml Oxycodone HCl (Oxyir) 5 mg PO Q4H PRN PRN PRN Reason: SEVERE PAIN (6-01/04) Last Admin: 08/04/17 10:08 Dose: 5 mg Potassium Phos/Sodium Phos (Neutra-Phos Packet) 1 packet PO [facility]X/[facility] Last Admin: 08/04/17 08:07 Dose: 1 packet Thiamine HCl (Vitamin B1) 100 mg PO DAILY[facility] Last Admin: 08/04/17 08:07 Dose: 100 mg Medical Necessity - Tobacco Use Smoking Status: Current every day smoker Tobacco Use: Cigarettes Assessment/Plan Impression: Debility status post right hip fracture status post open reduction internal fixation performed 07/25/[address] Gifford. Goal of therapy is tenriism of her prior functional independence. Her balance and dizziness is likely due to malnutrition due to her chronic alcohol use which she is now abstaining from and will continue to do so. Plan: - Physical therapy for gait and balance - Occupational Therapy for ADLs - Speech therapy for cognition - Continue alcohol abstention - As needed analgesics - continue Oxy IR, will d/c the fentanyl patch, and re- assess again later today - Bowel protocol - DVT prophylaxis: Lovenox - Right hip incision - The upper incision has 11 susan, with mild Serous drainage noted, the incision is well approximated, no redness or warmth noted. the small incision has 6 susan is C/D/I. - Depression -> started Lexapro at bedtime, has been excessively tired, since starting it will decrease dose to 5 mg.
[2017-08-04] MEDS: Mirtazapine 15 MG Tablet PO (21:21)
[2017-08-04] MEDS: Atorvastatin Calcium 40 MG Tablet PO (21:21)
[2017-08-04 21:50] VITALS: BP 138/82; PULSE 94; RESP 18; TEMP 36.9; O2SAT 94
[2017-08-05] MEDS: oxyCODONE 5 MG Tablet PO ×3 (01:56→13:27)
--- NOTE | 2017-08-05 02:52 | NURSING ---
Reviewed and agree with [employer] documentation and [facility] charting.
[2017-08-05] MEDS: Enoxaparin 40 MG/0.4 ML Syringe SC (06:24)
[2017-08-05] MEDS: Acetaminophen 500 MG Tablet 1000 MG PO ×3 (06:24→20:28)
[2017-08-05] MEDS: Aspirin E.C. 81 MG Tablet PO (09:07)
[2017-08-05] MEDS: Carvedilol 6.25 MG Tablet PO ×2 (09:07→20:28)
[2017-08-05] MEDS: Escitalopram Oxalate 10 MG Tablet 5 MG PO (09:07)
[2017-08-05] MEDS: Thiamine Hydrochloride 100 MG Tablet PO (09:07)
[2017-08-05] MEDS: Na Biphos/Potassium Phosphate PACKET 1 PACKET PO ×4 (09:07→20:29)
[2017-08-05] MEDS: Multivitamins,Ther W-Minerals Tablet 1 TABLET PO (09:07)
[2017-08-05] MEDS: Folic Acid 1 MG Tablet PO (09:07)
[2017-08-05] MEDS: Losartan Potassium 25 MG Tablet PO (09:07)
[2017-08-05] MEDS: Famotidine 20 MG Tablet PO ×2 (09:08→20:28)
[2017-08-05 09:13] VITALS: BP 140/68; PULSE 76; RESP 18; TEMP 36.4; O2SAT 93
--- NOTE | 2017-08-05 13:32 | PN_ITS ---
Subjective: Patient seen participating in physical therapy Objective: GENERAL: cooperative HEENT: Clear conjunctiva, NECK; supple, normal thyroid, CHEST: Clear to auscultation bilaterally,. HEART: Regular S1 S2, no audible murmurs ABDOMEN: soft, non-tender, normoactive bowel sounds, RECTAL: deferred EXTREMITIES: No edema, no clubbing, no cyanosis. TERRAZZO LAYER: Awake, no lateralizing signs. SKIN: No Rash, Vitals/I&O's: Vital Signs Temp Pulse Resp BP Pulse Ox 97.6 F L 76 18 140/68 H 93 08/05/17 09:13 08/05/17 09:13 08/05/17 09:13 08/05/17 09:13 08/05/17 09:13 Oxygen Delivery Method Room Air Weight: 55 kg Body Mass Index (BMI) 21.4 Finger Stick Blood Glucose 95 Intake and Output for Last 24 Hours 08/03/17 08/04/17 08/05/17 23:59 23:59 23:59 Intake Total 360 / 360 540 / 540 260 / 260 Balance 360 / 360 540 / 540 260 / 260 Current Medications Acetaminophen (Tylenol) 1,000 mg PO TID [facility] Last Admin: 08/05/17 06:24 Dose: 1,000 mg Albuterol Sulfate (Ventolin Aerosols) 2.5 mg INHALATION Q2H PRN PRN PRN Reason: SHORTNESS OF BREATH Aspirin (Ecotrin) 81 mg PO DAILY@0800 [facility] Last Admin: 08/05/17 09:07 Dose: 81 mg Atorvastatin Calcium (Lipitor) 40 mg PO QHS [facility] Last Admin: 08/04/17 21:21 Dose: 40 mg Bisacodyl (Dulcolax) 10 mg RECTAL DAILY PRN PRN PRN Reason: Constipation Carvedilol (Coreg) 6.25 mg PO BID [facility] Last Admin: 08/05/17 09:07 Dose: 6.25 mg Enoxaparin Sodium (Lovenox) 40 mg SC DAILY@0600 [facility] Last Admin: 08/05/17 06:24 Dose: 40 mg Escitalopram Oxalate (Lexapro) 5 mg PO DAILY [facility] Last Admin: 08/05/17 09:07 Dose: 5 mg Famotidine (Pepcid) 20 mg PO BID [facility] Last Admin: 08/05/17 09:08 Dose: 20 mg Folic Acid (Folic Acid) 1 mg PO DAILY@0800 [facility] Last Admin: 08/05/17 09:07 Dose: 1 mg Losartan Potassium (Cozaar) 25 mg PO DAILY [facility] Last Admin: 08/05/17 09:07 Dose: 25 mg Magnesium Hydroxide (Milk Of Magnesia) 30 ml PO .PRN X 1 PRN PRN Reason: Constipation Mirtazapine (Remeron) 15 mg PO QHS [facility] Last Admin: 08/04/17 21:21 Dose: 15 mg Multivitamins/Minerals (Multivitamin With Minerals) [facility] Last Admin: 08/05/17 09:07 Dose: 1 tablet Nicotine (Nicoderm Cq (Pbkc)) 21 mg TRANSDERM. DAILY [facility] Last Admin: 08/05/17 09:09 Dose: 21 mg Nutritional Formula (Lactose Free) (Ensure Enlive) 120 ml PO 4X/DAY [facility] Last Admin: 08/05/17 09:06 Dose: 120 ml Oxycodone HCl (Oxyir) 5 mg PO Q4H PRN PRN PRN Reason: SEVERE PAIN (6-01/04) Last Admin: 08/05/17 13:27 Dose: 5 mg Potassium Phos/Sodium Phos (Neutra-Phos Packet) 1 packet PO [facility]X/[facility] Last Admin: 08/05/17 12:08 Dose: 1 packet Thiamine HCl (Vitamin B1) 100 mg PO [facility] Last Admin: 08/05/17 09:07 Dose: 100 mg Medical Necessity - Tobacco Use Smoking Status: Current every day smoker Tobacco Use: Cigarettes Assessment/Plan Patient is a 67-year-old lady with history of chronic alcohol abuse who presented with a fall resulting in right hip fracture for which patient underwent surgical repair subsequently transferred to the inpatient rehab unit for recuperation 1. Status post acute traumatic intertrochanteric hip fracture patient underwent Right hip cephalo-medullary nail-[employer] [place] gamma for [address] Mert Gifford 2. Physical debility due to above PT OT tolerated 3. Acute toxic encephalopathy this was suspected to be secondary to patient history of chronic alcohol abuse 4. Suspected cognitive impairment from chronic alcohol abuse with acute encephalopathy patient is on thiamine folic acid and multivitamins 5. CAD with previous PCI currently on aspirin started as well as beta blockers 6. Hypertension-blood pressure controlled, home medications continued with dose adjustment as needed 7. Dyslipidemia-patient is on statin therapy, continued at home dose 8. Chronic alcohol abuse counseled on cessation 9. Tobacco dependence counseled on cessation, offered nicotine patch for tobacco cravings 10. History of TIAs on aspirin as well as statin therapy 11. Severe protein calorie malnutrition secondary to patient chronic alcohol use patient is on Ensure supplementation as recommended by podiatry since 12. Dysphagia-speech therapy consulted, on mechanical soft consistency with thin liquids. 13. DVT prophylaxis-SCDs, aspirin 81 mg twice daily per ortho recommendations. Code Visit Inpatient E&M: 96242 Subs Hosp L2
[2017-08-05 20:26] VITALS: BP 152/68; PULSE 83; RESP 24; TEMP 36.9; O2SAT 93
[2017-08-05] MEDS: Atorvastatin Calcium 40 MG Tablet PO (20:28)
[2017-08-05] MEDS: Mirtazapine 15 MG Tablet PO (20:29)
[2017-08-06] MEDS: oxyCODONE 5 MG Tablet PO ×4 (03:29→22:55)
[2017-08-06] MEDS: Acetaminophen 500 MG Tablet 1000 MG PO ×3 (05:56→22:49)
[2017-08-06] MEDS: Enoxaparin 40 MG/0.4 ML Syringe SC (05:56)
[2017-08-06 07:45] VITALS: BP 165/81; PULSE 90; RESP 16; O2SAT 93
[2017-08-06] MEDS: Escitalopram Oxalate 10 MG Tablet 5 MG PO (07:48)
[2017-08-06] MEDS: Multivitamins,Ther W-Minerals Tablet 1 TABLET PO (07:49)
[2017-08-06] MEDS: Thiamine Hydrochloride 100 MG Tablet PO (07:49)
[2017-08-06] MEDS: Losartan Potassium 25 MG Tablet PO (07:49)
[2017-08-06] MEDS: Folic Acid 1 MG Tablet PO (07:49)
[2017-08-06] MEDS: Na Biphos/Potassium Phosphate PACKET 1 PACKET PO ×4 (07:49→22:50)
[2017-08-06] MEDS: Carvedilol 6.25 MG Tablet PO ×2 (07:49→22:50)
[2017-08-06] MEDS: Aspirin E.C. 81 MG Tablet PO (07:49)
[2017-08-06] MEDS: Famotidine 20 MG Tablet PO ×2 (07:49→22:58)
[2017-08-06 17:11] VITALS: BP 145/91; PULSE 92
[2017-08-06 19:04] VITALS: BP 131/64; PULSE 92; RESP 16; TEMP 36.7; O2SAT 95
[2017-08-06] MEDS: Atorvastatin Calcium 40 MG Tablet PO (22:50)
[2017-08-06] MEDS: Mirtazapine 15 MG Tablet PO (22:50)
[2017-08-07] MEDS: Acetaminophen 500 MG Tablet 1000 MG PO ×3 (05:58→21:42)
[2017-08-07] MEDS: Enoxaparin 40 MG/0.4 ML Syringe SC (05:59)
[2017-08-07] MEDS: oxyCODONE 5 MG Tablet PO ×3 (05:59→14:18)
[2017-08-07 09:50] VITALS: BP 151/78; PULSE 90; RESP 18; TEMP 36.6; O2SAT 92
[2017-08-07] MEDS: Escitalopram Oxalate 10 MG Tablet 5 MG PO (09:56)
[2017-08-07] MEDS: Na Biphos/Potassium Phosphate PACKET 1 PACKET PO ×4 (09:57→21:43)
[2017-08-07] MEDS: Aspirin E.C. 81 MG Tablet PO (09:57)
[2017-08-07] MEDS: Multivitamins,Ther W-Minerals Tablet 1 TABLET PO (09:57)
[2017-08-07] MEDS: Thiamine Hydrochloride 100 MG Tablet PO (09:57)
[2017-08-07] MEDS: Famotidine 20 MG Tablet PO ×2 (09:57→21:43)
[2017-08-07] MEDS: Losartan Potassium 25 MG Tablet PO (09:57)
[2017-08-07] MEDS: Folic Acid 1 MG Tablet PO (09:57)
[2017-08-07] MEDS: Carvedilol 6.25 MG Tablet PO ×2 (09:58→21:43)
--- NOTE | 2017-08-07 14:42 | PCM.PN.HOSP ---
Subjective: Seen tolerating PT well. Complains of right hip pain Objective: GENERAL: cooperative HEENT: Clear conjunctiva, NECK; supple, normal thyroid, CHEST: Clear to auscultation bilaterally,. HEART: Regular S1 S2, no audible murmurs ABDOMEN: soft, non-tender, normoactive bowel sounds, RECTAL: deferred EXTREMITIES: No edema, no clubbing, no cyanosis. ONION FARMER: Awake, no lateralizing signs. SKIN: No Rash, Vitals/I&O's: Vital Signs Temp Pulse Resp BP Pulse Ox 97.8 F 90 18 151/78 H 92 08/07/17 09:50 08/07/17 09:50 08/07/17 09:50 08/07/17 09:50 08/07/17 09:50 Oxygen Delivery Method Room Air Weight: 55 kg Body Mass Index (BMI) 21.4 Finger Stick Blood Glucose 95 Intake and Output for Last 24 Hours 08/05/17 08/06/17 08/07/17 23:59 23:59 23:59 Intake Total 260 / 260 480 / 480 240 / 240 Balance 260 / 260 480 / 480 240 / 240 Current Medications Acetaminophen (Tylenol) 1,000 mg PO TID [facility] Last Admin: 08/07/17 14:15 Dose: 1,000 mg Albuterol Sulfate (Ventolin Aerosols) 2.5 mg INHALATION Q2H PRN PRN PRN Reason: SHORTNESS OF BREATH Aspirin (Ecotrin) 81 mg PO DAILY@0800 [facility] Last Admin: 08/07/17 09:57 Dose: 81 mg Atorvastatin Calcium (Lipitor) 40 mg PO QHS [facility] Last Admin: 08/06/17 22:50 Dose: 40 mg Bisacodyl (Dulcolax) 10 mg RECTAL DAILY PRN PRN PRN Reason: Constipation Carvedilol (Coreg) 6.25 mg PO BID [facility] Last Admin: 08/07/17 09:58 Dose: 6.25 mg Enoxaparin Sodium (Lovenox) 40 mg SC DAILY@0600 [facility] Last Admin: 08/07/17 05:59 Dose: 40 mg Escitalopram Oxalate (Lexapro) 5 mg PO DAILY [facility] Last Admin: 08/07/17 09:56 Dose: 5 mg Famotidine (Pepcid) 20 mg PO BID [facility] Last Admin: 08/07/17 09:57 Dose: 20 mg Folic Acid (Folic Acid) 1 mg PO DAILY@0800 [facility] Last Admin: 08/07/17 09:57 Dose: 1 mg Losartan Potassium (Cozaar) 25 mg PO DAILY [facility] Last Admin: 08/07/17 09:57 Dose: 25 mg Magnesium Hydroxide (Milk Of Magnesia) 30 ml PO .PRN X 1 PRN PRN Reason: Constipation Mirtazapine (Remeron) 15 mg PO QHS [facility] Last Admin: 08/06/17 22:50 Dose: 15 mg Multivitamins/Minerals (Multivitamin With Minerals) [facility] Last Admin: 08/07/17 09:57 Dose: 1 tablet Nicotine (Nicoderm Cq (Pbkc)) 21 mg TRANSDERM. DAILY [facility] Last Admin: 08/07/17 09:57 Dose: 21 mg Nutritional Formula (Lactose Free) (Ensure Enlive) 120 ml PO 4X/DAY [facility] Last Admin: 08/07/17 14:15 Dose: 120 ml Oxycodone HCl (Oxyir) 5 mg PO Q4H PRN PRN PRN Reason: SEVERE PAIN (6-10/10) Last Admin: 08/07/17 14:18 Dose: 5 mg Potassium Phos/Sodium Phos (Neutra-Phos Packet) [facility] Last Admin: 08/07/17 14:15 Dose: 1 packet Thiamine HCl (Vitamin B1) [facility] Last Admin: 08/07/17 09:57 Dose: 100 mg Medical Necessity - Tobacco Use Smoking Status: Current every day smoker Tobacco Use: Cigarettes Assessment/Plan Patient is a 67-year-old lady with history of chronic alcohol abuse who presented with a fall resulting in right hip fracture for which patient underwent surgical repair subsequently transferred to the inpatient rehab unit for recuperation 1. Status post acute traumatic intertrochanteric hip fracture patient underwent Right hip cephalo-medullary nail-[place] gamma for [address] Mert Gifford 2. Physical debility due to above PT OT tolerated 3. Acute toxic encephalopathy this was suspected to be secondary to patient history of chronic alcohol abuse 4. Suspected cognitive impairment from chronic alcohol abuse with acute encephalopathy patient is on thiamine folic acid and multivitamins 5. CAD with previous PCI currently on aspirin started as well as beta blockers 6. Hypertension-blood pressure controlled, home medications continued with dose adjustment as needed 7. Dyslipidemia-patient is on statin therapy, continued at home dose 8. Chronic alcohol abuse counseled on cessation 9. Tobacco dependence counseled on cessation, offered nicotine patch for tobacco cravings 10. History of TIAs on aspirin as well as statin therapy 11. Severe protein calorie malnutrition secondary to patient chronic alcohol use patient is on Ensure supplementation as recommended by podiatry since 12. Dysphagia-speech therapy consulted, on mechanical soft consistency with thin liquids. 13. DVT prophylaxis-SCDs, aspirin 81 mg twice daily per ortho recommendations. Code Visit Inpatient E&M: 96809 Subs Hosp L2
--- NOTE | 2017-08-07 16:40 | RAD_ITS ---
STUDY: X-RAY - PELVIS AND RIGHT HIP REASON FOR EXAM: Female, 67 years old. Fracture follow-up TECHNIQUE: Radiological exam, hip, unilateral, with pelvis when performed; 2 or 3 views. COMPARISON: 07/25/2017. FINDINGS: Surgically repaired fracture of the right hip has a satisfactory appearance. No complication. Anatomic alignment and position. No dislocation. Normal bilateral iliac wings, sacroiliac joints and visualized sacrum. Normal bilateral superior and inferior pubic rami. Normal pubic symphysis. Normal bilateral ischial tuberosities. Moderately prominent vascular calcifications. RAD/Hip 2-3 Views with Pelvis IMPRESSION: Surgically repaired fracture of the right hip has a satisfactory appearance. No complication. Electronically Signed: Venkatesh Barrientos MD at 17:38 EDT , Service support ,
--- NOTE | 2017-08-07 17:04 | NURSING ---
off floor to hip xray per dr wu orders
[2017-08-07 21:40] VITALS: PULSE 102; O2SAT 93
[2017-08-07] MEDS: Atorvastatin Calcium 40 MG Tablet PO (21:43)
[2017-08-07] MEDS: Mirtazapine 15 MG Tablet PO (21:43)
[2017-08-07 22:00] VITALS: BP 153/93; PULSE 102; RESP 16; TEMP 36.4; O2SAT 96
[2017-08-08] MEDS: oxyCODONE 5 MG Tablet PO ×2 (01:14→05:13)
--- NOTE | 2017-08-08 02:33 | NURSING ---
REVIEWED AND AGREE WITH [employer]S FIM AND HANDOFF CHARTING.
[2017-08-08] MEDS: Acetaminophen 500 MG Tablet 1000 MG PO ×3 (06:25→20:07)
[2017-08-08] MEDS: Enoxaparin 40 MG/0.4 ML Syringe SC (06:25)
[2017-08-08 07:29] VITALS: BP 130/72; PULSE 83; RESP 12; TEMP 36.9; O2SAT 93
[2017-08-08] MEDS: Carvedilol 6.25 MG Tablet PO ×2 (08:06→20:06)
[2017-08-08] MEDS: Multivitamins,Ther W-Minerals Tablet 1 TABLET PO (08:06)
[2017-08-08] MEDS: Folic Acid 1 MG Tablet PO (08:06)
[2017-08-08] MEDS: Famotidine 20 MG Tablet PO ×2 (08:06→20:06)
[2017-08-08] MEDS: Losartan Potassium 25 MG Tablet PO (08:06)
[2017-08-08] MEDS: Thiamine Hydrochloride 100 MG Tablet PO (08:06)
[2017-08-08] MEDS: Escitalopram Oxalate 10 MG Tablet 5 MG PO (08:06)
[2017-08-08] MEDS: Aspirin E.C. 81 MG Tablet PO (08:06)
[2017-08-08] MEDS: Na Biphos/Potassium Phosphate PACKET 1 PACKET PO ×4 (08:07→20:06)
[2017-08-08] MEDS: Senna Tablet 2 TABLET PO ×2 (09:47→20:06)
--- NOTE | 2017-08-08 10:42 | PCM.PN.NEU ---
Subjective: Patient seen, per nursing staff patient would yell out during the night, when asked why, stated she didn't know she was yelling out. Patient is tolerating therapy. Denies any shortness of breath or chest pains. No issues with GI/. Has repeatedly stated she wants to go home, commissary worker discussed this with her and she will stay till this weekend when her time is up. - Physical Exam General: Alert, Oriented x3, Cooperative HEENT: Atraumatic, PERRLA, EOMI, Normocephalic Neck: Supple, No JVD, Negative Carotid Bruits Lungs: Clear to auscultation, Normal air movement Cardiovascular: Regular rate, No murmurs Abdomen: Bowel Sounds Present, Soft, Non Tender Extremities: No edema, Capillary Refill Less than 3 Seconds Skin: No rashes, No breakdown Musculoskeletal: No Tenderness to Palpation of Joints or Extremities Neurological: Cranial nerves II-XII grossly intact Psych/Mental Status: Normal Affect, Appropriate, Alert and oriented to time, place, person, mood and affect Vital Signs Temp Pulse Resp BP Pulse Ox 98.4 F 83 12 130/72 H 93 08/08/17 07:29 08/08/17 07:29 08/08/17 07:29 08/08/17 07:29 08/08/17 07:29 Oxygen Delivery Method Room Air Weight: 55 kg Body Mass Index (BMI) 21.4 Finger Stick Blood Glucose 95 Intake and Output for Last 24 Hours 08/06/17 08/07/17 08/08/17 23:59 23:59 23:59 Intake Total 480 / 480 480 / 480 240 / 240 Balance 480 / 480 480 / 480 240 / 240 Active Medications Acetaminophen (Tylenol) 1,000 mg PO TID [facility] Last Admin: 08/08/17 06:25 Dose: 1,000 mg Albuterol Sulfate (Ventolin Aerosols) 2.5 mg INHALATION Q2H PRN PRN PRN Reason: SHORTNESS OF BREATH Aspirin (Ecotrin) 81 mg PO DAILY@0800 [facility] Last Admin: 08/08/17 08:06 Dose: 81 mg Atorvastatin Calcium (Lipitor) 40 mg PO QHS [facility] Last Admin: 08/07/17 21:43 Dose: 40 mg Bisacodyl (Dulcolax) 10 mg RECTAL DAILY PRN PRN PRN Reason: Constipation Carvedilol (Coreg) 6.25 mg PO BID [facility] Last Admin: 08/08/17 08:06 Dose: 6.25 mg Enoxaparin Sodium (Lovenox) 40 mg SC DAILY@0600 [facility] Last Admin: 08/08/17 06:25 Dose: 40 mg Escitalopram Oxalate (Lexapro) 5 mg PO DAILY [facility] Last Admin: 08/08/17 08:06 Dose: 5 mg Famotidine (Pepcid) 20 mg PO BID [facility] Last Admin: 08/08/17 08:06 Dose: 20 mg Folic Acid (Folic Acid) 1 mg PO DAILY@0800 [facility] Last Admin: 08/08/17 08:06 Dose: 1 mg Losartan Potassium (Cozaar) 25 mg PO DAILY [facility] Last Admin: 08/08/17 08:06 Dose: 25 mg Magnesium Hydroxide (Milk Of Magnesia) 30 ml PO .PRN X 1 PRN PRN Reason: Constipation Mirtazapine (Remeron) 15 mg PO QHS [facility] Last Admin: 08/07/17 21:43 Dose: 15 mg Multivitamins/Minerals (Multivitamin With Minerals) [facility] Last Admin: 08/08/17 08:06 Dose: 1 tablet Nicotine (Nicoderm Cq (Pbkc)) 21 mg TRANSDERM. DAILY [facility] Last Admin: 08/08/17 08:06 Dose: 21 mg Nutritional Formula (Lactose Free) (Ensure Enlive) 120 ml PO 4X/DAY [facility] Last Admin: 08/08/17 08:08 Dose: 120 ml Oxycodone HCl (Oxyir) 5 mg PO Q4H PRN PRN PRN Reason: SEVERE PAIN (6-10/10) Last Admin: 08/08/17 05:13 Dose: 5 mg Potassium Phos/Sodium Phos (Neutra-Phos Packet) [facility] Last Admin: 08/08/17 08:07 Dose: 1 packet Senna (Senokot) 2 tablet PO BID [facility] Last Admin: 08/08/17 09:47 Dose: 2 tablet Thiamine HCl (Vitamin B1) [facility] Last Admin: 08/08/17 08:06 Dose: 100 mg Medical Necessity - Tobacco Use Smoking Status: Current every day smoker Tobacco Use: Cigarettes Assessment/Plan Impression: Debility status post right hip fracture status post open reduction internal fixation performed 07/25/[address] Gifford. Goal of therapy is episcopalian of her prior functional independence. Her balance and dizziness is likely due to malnutrition due to her chronic alcohol use which she is now abstaining from and will continue to do so. Plan: - Physical therapy for gait and balance - Occupational Therapy for ADLs - Speech therapy for cognition - Continue alcohol abstention - As needed analgesics - continue Oxy IR, will d/c the fentanyl patch, and re-assess again later today - Bowel protocol - DVT prophylaxis: Lovenox - Right hip incision - The upper incision has 11 susan, with mild Serous drainage noted, the incision is well approximated, no redness or warmth noted. the small incision has 6 susan is C/D/I. - Depression -> started Lexapro at bedtime, has been excessively tired, since starting it will decrease dose to 5 mg.
[2017-08-08 19:29] VITALS: BP 145/82; PULSE 88; RESP 17; TEMP 36.6; O2SAT 95
[2017-08-08] MEDS: Mirtazapine 15 MG Tablet PO (20:06)
[2017-08-08] MEDS: Atorvastatin Calcium 40 MG Tablet PO (20:06)
--- NOTE | 2017-08-09 01:55 | NURSING ---
Reviewed and agree with AUDIO TAPE LIBRARIAN documentation and FIMS charting.
[2017-08-09] MEDS: Acetaminophen 500 MG Tablet 1000 MG PO ×3 (05:12→19:50)
[2017-08-09] MEDS: Enoxaparin 40 MG/0.4 ML Syringe SC (05:13)
[2017-08-09 07:21] VITALS: BP 130/76; PULSE 93; RESP 18; TEMP 36.7; O2SAT 98
[2017-08-09] MEDS: Multivitamins,Ther W-Minerals Tablet 1 TABLET PO (07:35)
[2017-08-09] MEDS: Aspirin E.C. 81 MG Tablet PO (07:35)
[2017-08-09] MEDS: Thiamine Hydrochloride 100 MG Tablet PO (07:35)
[2017-08-09] MEDS: Carvedilol 6.25 MG Tablet PO ×2 (07:35→19:47)
[2017-08-09] MEDS: Folic Acid 1 MG Tablet PO (07:35)
[2017-08-09] MEDS: Na Biphos/Potassium Phosphate PACKET 1 PACKET PO ×4 (07:35→19:44)
[2017-08-09] MEDS: Escitalopram Oxalate 10 MG Tablet 5 MG PO (07:36)
[2017-08-09] MEDS: Losartan Potassium 25 MG Tablet PO (07:36)
[2017-08-09] MEDS: Famotidine 20 MG Tablet PO ×2 (07:36→19:48)
--- NOTE | 2017-08-09 10:18 | NURSING ---
dr oleary here to see patient, will see patient in about a month in office.
--- NOTE | 2017-08-09 10:24 | PN.ORTHO_ITS ---
Subjective: 67-year-old female roughly 2 weeks status post right gamma nail for intertrochanteric femur fracture. No issues while in rehab. It is reported the patient may go home this weekend. Patient had her 2 week evaluation on the rehab floor by myself with radiographs being performed. Her susan had been removed already and there was no wound issues. Patient has been freely ambulatory using assistive device. Denies any other fevers chills nausea vomiting chest pain or shortness of breath. Vital signs remained stable. H&H has remained stable. - Physical Exam General: Alert, Oriented x3, Cooperative, No apparent distress Musculoskeletal: - - Distally neurovascularly intact, a perform straight leg raise, incisions clean dry and intact and susan have been removed. EHL anterior gastrocsoleus peroneals quads hamstring 5 out of 5. No adenopathy. X- rays: Evaluated by myself-hardware otherwise well seated well-placed status post a short gamma nail. Patient has near anatomic reduction at this point time. Tip to apex distance is definitely within normal limits. Vital Signs Temp Pulse Resp BP Pulse Ox 98.0 F 93 18 130/76 H 98 08/09/17 07:21 08/09/17 07:21 08/09/17 07:21 08/09/17 07:21 08/09/17 07:21 Oxygen Delivery Method Room Air Weight: 121 lb 4.068 oz Body Mass Index (BMI) 21.4 Finger Stick Blood Glucose 95 Intake and Output for Last 24 Hours 08/07/17 08/08/17 08/09/17 23:59 23:59 23:59 Intake Total 480 / 480 560 / 560 Balance 480 / 480 560 / 560 Medical Necessity - Tobacco Use Smoking Status: Current every day smoker Tobacco Use: Cigarettes Assessment/Plan Assessment: Right hip intertrochanteric femur fracture status post right hip gamma nail-doing well. Plan: At this point time patient's two-week evaluation shows her to doing well. Hardware is well seated on her radiographs and she looks like she is on course for a successful outcome. I will see the patient back in my office in 4 weeks for repeat radiographs at that time. Patient again is weightbearing as tolerated. The patient can use baby aspirin for DVT prophylaxis if needed. Otherwise her early range of motion at this point time. We will start outpatient physical therapy any major issues please contact.
[2017-08-09] MEDS: oxyCODONE 5 MG Tablet PO (11:10)
--- NOTE | 2017-08-09 11:33 | PN.NEURO_ITS ---
Subjective: Reports some discomfort but nursing staff said she has been otherwise seems to be doing okay and has refused her OxyContin. No other complaints. No GI or complaints. Tolerating therapies. - Physical Exam General: Alert, Oriented x3, Cooperative, No apparent distress Neurological: Cranial nerves II-XII grossly intact Psych/Mental Status: Normal Affect Vital Signs Temp Pulse Resp BP Pulse Ox 36.7 C 93 18 130/76 H 98 08/09/17 07:21 08/09/17 07:21 08/09/17 07:21 08/09/17 07:21 08/09/17 07:21 Oxygen Delivery Method Room Air Weight: 55 kg Body Mass Index (BMI) 21.4 Finger Stick Blood Glucose 95 Intake and Output for Last 24 Hours 08/07/17 08/08/17 08/09/17 23:59 23:59 23:59 Intake Total 480 / 480 560 / 560 Balance 480 / 480 560 / 560 Medical Necessity - Tobacco Use Smoking Status: Current every day smoker Tobacco Use: Cigarettes Assessment/Plan Impression: Debility status post right hip fracture status post open reduction internal fixation performed 07/25/[address] Gifford. Goal of therapy is gnosticist of her prior functional independence. Her balance and dizziness is likely due to malnutrition due to her chronic alcohol use which she is now abstaining from and will continue to do so. Plan: - Physical therapy for gait and balance - Occupational Therapy for ADLs - Speech therapy for cognition - Continue alcohol abstention - As needed analgesics - continue Oxy IR, will d/c the fentanyl patch, and re- assess again later today. 08/09/17: Nursing staff indicates pain is controlled, she has been refusing her [place]. - Bowel protocol - DVT prophylaxis: Lovenox - Right hip incision - The upper incision has 11 susan, with mild Serous drainage noted, the incision is well approximated, no redness or warmth noted. the small incision has 6 susan is C/D/I. 08/09/17: Her susan are out. Healing well. Dr. Gifford evaluated her earlier today. - Depression -> started Lexapro at bedtime, has been excessively tired, since starting it will decrease dose to 5 mg.
[2017-08-09 19:41] VITALS: BP 148/82; PULSE 90; RESP 17; TEMP 36.6; O2SAT 95
[2017-08-09] MEDS: Mirtazapine 15 MG Tablet PO (19:48)
[2017-08-09] MEDS: Atorvastatin Calcium 40 MG Tablet PO (19:48)
[2017-08-10] MEDS: Enoxaparin 40 MG/0.4 ML Syringe SC (05:57)
[2017-08-10] MEDS: Acetaminophen 500 MG Tablet 1000 MG PO ×3 (05:57→20:41)
[2017-08-10] MEDS: Aspirin E.C. 81 MG Tablet PO (07:38)
[2017-08-10] MEDS: Thiamine Hydrochloride 100 MG Tablet PO (07:38)
[2017-08-10] MEDS: Folic Acid 1 MG Tablet PO (07:38)
[2017-08-10] MEDS: Multivitamins,Ther W-Minerals Tablet 1 TABLET PO (07:38)
[2017-08-10] MEDS: Na Biphos/Potassium Phosphate PACKET 1 PACKET PO ×4 (07:39→20:42)
[2017-08-10 07:48] VITALS: PULSE 87; RESP 17; TEMP 36.6; O2SAT 93
[2017-08-10] MEDS: Famotidine 20 MG Tablet PO ×2 (08:38→20:41)
[2017-08-10] MEDS: Escitalopram Oxalate 10 MG Tablet 5 MG PO (08:38)
[2017-08-10] MEDS: Losartan Potassium 25 MG Tablet PO (08:39)
[2017-08-10] MEDS: Carvedilol 6.25 MG Tablet PO ×2 (08:39→20:42)
[2017-08-10] MEDS: oxyCODONE 5 MG Tablet PO (08:39)
[2017-08-10 20:19] VITALS: BP 146/79; PULSE 90; RESP 24; TEMP 37.1; O2SAT 94
[2017-08-10] MEDS: Mirtazapine 15 MG Tablet PO (20:41)
[2017-08-10] MEDS: Atorvastatin Calcium 40 MG Tablet PO (20:42)
[2017-08-11] MEDS: Acetaminophen 500 MG Tablet 1000 MG PO ×3 (06:48→21:25)
[2017-08-11] MEDS: Enoxaparin 40 MG/0.4 ML Syringe SC (06:48)
[2017-08-11 08:26] VITALS: PULSE 90; RESP 17; TEMP 36.6; O2SAT 96
[2017-08-11] MEDS: Famotidine 20 MG Tablet PO ×2 (08:36→21:25)
[2017-08-11] MEDS: Losartan Potassium 25 MG Tablet PO (08:36)
[2017-08-11] MEDS: Na Biphos/Potassium Phosphate PACKET 1 PACKET PO ×4 (08:36→21:25)
[2017-08-11] MEDS: Carvedilol 6.25 MG Tablet PO ×2 (08:36→21:25)
[2017-08-11] MEDS: Folic Acid 1 MG Tablet PO (08:37)
[2017-08-11] MEDS: Thiamine Hydrochloride 100 MG Tablet PO (08:38)
[2017-08-11] MEDS: Multivitamins,Ther W-Minerals Tablet 1 TABLET PO (08:38)
[2017-08-11] MEDS: Aspirin E.C. 81 MG Tablet PO (08:40)
[2017-08-11] MEDS: Escitalopram Oxalate 10 MG Tablet 5 MG PO (08:40)
[2017-08-11 08:54] VITALS: BP 152/90
--- NOTE | 2017-08-11 10:29 | CASEMGMT ---
Team meeting held. Patient present, no support person present at this time. Patient declining for this social services specialist to contact patient family in regards to team meeting. Patient requesting for discharge date to be set for 08/12/17. Team is agreeable to discharge date of 08/12/17. Patient plans to discharge home with son at time of discharge. Physical therapy is recommending for patient to have continued therapy through outpatient therapy services. Patient is agreeable to recommendation and requesting for outpatient physical therapy to be set up through [facility]. Patient aware that an order will be faxed to [facility] and then [facility] will be contacting patient to set up appointment. Patient also reporting to need a walker. Patient does not have a preference of [employer] to be utilized. Patient reporting that family will provide transportation for patient at time of discharge. Support given. Order for outpatient physical therapy faxed to [facility]. Telephone call to Eduarda Del Rio. This social services specialist making referral for front wheeled walker. Order faxed. Eduarda to deliver walker to patient room prior to discharge. Proposed discharge date: 08/12/17 PLAN: Discharge home with son and outpatient physical therapy. Kary TOMAS, DIE STAMPING PRESS OPERATOR
--- NOTE | 2017-08-11 12:49 | PCM.PN.NEU ---
Subjective: Staffed in team meeting. Family was not at bedside. Questions answered. With Physical therapy, she is supervision for bed mobility, getting in and out of the bed. She is stand by assist for going from a sitting to a standing position. She is able to walk 165 feet with a walker at standby assist. She is contact guard for going up and down a flight of stairs. Her TUG score is 23 seconds, and her sit to stand or Chair raises score is 9 in 30 seconds, week it was 4 in 30 seconds. With Occupational therapy, she is supervision for her personal care except for her socks she requires some assistance. To get in and out of a Tub bath she is stand by assist. With Nursing, her pain has decreased and is pretty well managed with the current medications. The plan is discharge on August 12 with outpatient Physical therapy. - Physical Exam General: Alert, Oriented x3, Cooperative HEENT: Atraumatic, PERRLA, EOMI, Normocephalic Neck: Supple, No JVD, Negative Carotid Bruits Lungs: Clear to auscultation, Normal air movement Cardiovascular: Regular rate, No murmurs Abdomen: Bowel Sounds Present, Soft, Non Tender Extremities: No edema, Capillary Refill Less than 3 Seconds Skin: No rashes, No breakdown Musculoskeletal: No Tenderness to Palpation of Joints or Extremities Neurological: Cranial nerves II-XII grossly intact Psych/Mental Status: Normal Affect, Appropriate, Alert and oriented to time, place, person, mood and affect Vital Signs Temp Pulse Resp BP Pulse Ox 97.8 F 90 17 152/90 H 96 08/11/17 08:26 08/11/17 08:26 08/11/17 08:26 08/11/17 08:54 08/11/17 08:26 Oxygen Delivery Method Room Air Weight: 50 kg Body Mass Index (BMI) 21.4 Finger Stick Blood Glucose 95 Intake and Output for Last 24 Hours 08/09/17 08/10/17 08/11/17 23:59 23:59 23:59 Intake Total 320 / 320 520 / 520 260 / 260 Balance 320 / 320 520 / 520 260 / 260 Active Medications Acetaminophen (Tylenol) 1,000 mg PO TID [facility] Last Admin: 08/11/17 06:48 Dose: 1,000 mg Albuterol Sulfate (Ventolin Aerosols) 2.5 mg INHALATION Q2H PRN PRN PRN Reason: SHORTNESS OF BREATH Aspirin (Ecotrin) 81 mg PO DAILY@0800 [facility] Last Admin: 08/11/17 08:40 Dose: 81 mg Atorvastatin Calcium (Lipitor) 40 mg PO QHS [facility] Last Admin: 08/10/17 20:42 Dose: 40 mg Bisacodyl (Dulcolax) 10 mg RECTAL DAILY PRN PRN PRN Reason: Constipation Carvedilol (Coreg) 6.25 mg PO BID [facility] Last Admin: 08/11/17 08:36 Dose: 6.25 mg Enoxaparin Sodium (Lovenox) 40 mg SC DAILY@0600 [facility] Last Admin: 08/11/17 06:48 Dose: 40 mg Escitalopram Oxalate (Lexapro) 5 mg PO DAILY [facility] Last Admin: 08/11/17 08:40 Dose: 5 mg Famotidine (Pepcid) 20 mg PO BID [facility] Last Admin: 08/11/17 08:36 Dose: 20 mg Folic Acid (Folic Acid) 1 mg PO DAILY@0800 [facility] Last Admin: 08/11/17 08:37 Dose: 1 mg Losartan Potassium (Cozaar) 25 mg PO DAILY [facility] Last Admin: 08/11/17 08:36 Dose: 25 mg Magnesium Hydroxide (Milk Of Magnesia) 30 ml PO .PRN X 1 PRN PRN Reason: Constipation Mirtazapine (Remeron) 15 mg PO QHS [facility] Last Admin: 08/10/17 20:41 Dose: 15 mg Multivitamins/Minerals ([facility]amin With Minerals) [facility] Admin: 08/11/17 08:38 Dose: 1 tablet Nicotine (Nicoderm Cq (Pbkc)) 21 mg TRANSDERM. DAILY [facility] Last Admin: 08/11/17 08:40 Dose: 21 mg Nutritional Formula (Lactose Free) (Ensure Enlive) 120 ml PO 4X/DAY [facility] Last Admin: 08/11/17 08:37 Dose: 120 ml Oxycodone HCl (Oxyir) 5 mg PO Q4H PRN PRN PRN Reason: SEVERE PAIN (6-10/10) Last Admin: 08/10/17 08:39 Dose: 5 mg Potassium Phos/Sodium Phos (Ne[facility]ra-Phos Packet) [facility] Last Admin: 08/11/17 08:36 Dose: 1 packet Senna (Senokot) 2 tablet PO BID [facility] Last Admin: 08/11/17 08:42 Dose: Not Given Thiamine HCl (Vitamin B1) 100 mg PO DAILYCM [facility] Last Admin: 08/11/17 08:38 Dose: 100 mg Medical Necessity - Tobacco Use Smoking Status: Current every day smoker Tobacco Use: Cigarettes Assessment/Plan Impression: Debility status post right hip fracture status post open reduction internal fixation performed 07/25/[address] Gifford. Goal of therapy is latter day of her prior functional independence. Her balance and dizziness is likely due to malnutrition due to her chronic alcohol use which she is now abstaining from and will continue to do so. Plan: - Physical therapy for gait and balance - Occupational Therapy for ADLs - Speech therapy for cognition - Continue alcohol abstention - As needed analgesics - continue Oxy IR, will d/c the fentanyl patch, and re-assess again later today. 08/09/17: Nursing staff indicates pain is controlled, she has been refusing her [place]. - Bowel protocol - DVT prophylaxis: Lovenox - Right hip incision - The upper incision has 11 susan, with mild Serous drainage noted, the incision is well approximated, no redness or warmth noted. the small incision has 6 susan is C/D/I. 08/09/17: Her susan are out. Healing well. Dr. Gifford evaluated her earlier today. - Depression -> started Lexapro at bedtime, has been excessively tired, since starting it will decrease dose to 5 mg.
--- NOTE | 2017-08-11 12:56 | PN.NEURO_ITS ---
Subjective: Staffed in team meeting. Family was not at bedside. Questions answered. With Physical therapy, she is supervision for bed mobility, getting in and out of the bed. She is stand by assist for going from a sitting to a standing position. She is able to walk 165 feet with a walker at standby assist. She is contact guard for going up and down a flight of stairs. Her TUG score is 23 seconds, and her sit to stand or Chair raises score is 9 in 30 seconds, week it was 4 in 30 seconds. With Occupational therapy, she is supervision for her personal care except for her socks she requires some assistance. To get in and out of a Tub bath she is stand by assist. With Nursing, her pain has decreased and is pretty well managed with the current medications. The plan is discharge on August 12 with outpatient Physical therapy. - Physical Exam General: Alert, Oriented x3, Cooperative HEENT: Atraumatic, PERRLA, EOMI, Normocephalic Neck: Supple, No JVD, Negative Carotid Bruits Lungs: Clear to auscultation, Normal air movement Cardiovascular: Regular rate, No murmurs Abdomen: Bowel Sounds Present, Soft, Non Tender Extremities: No edema, Capillary Refill Less than 3 Seconds Skin: No rashes, No breakdown Musculoskeletal: No Tenderness to Palpation of Joints or Extremities Neurological: Cranial nerves II-XII grossly intact Psych/Mental Status: Normal Affect, Appropriate, Alert and oriented to time, place, person, mood and affect Vital Signs Temp Pulse Resp BP Pulse Ox 97.8 F 90 17 152/90 H 96 08/11/17 08:26 08/11/17 08:26 08/11/17 08:26 08/11/17 08:54 08/11/17 08:26 Oxygen Delivery Method Room Air Weight: 50 kg Body Mass Index (BMI) 21.4 Finger Stick Blood Glucose 95 Intake and Output for Last 24 Hours 08/09/17 08/10/17 08/11/17 23:59 23:59 23:59 Intake Total 320 / 320 520 / 520 260 / 260 Balance 320 / 320 520 / 520 260 / 260 Active Medications Acetaminophen (Tylenol) 1,000 mg PO TID [facility] Last Admin: 08/11/17 06:48 Dose: 1,000 mg Albuterol Sulfate (Ventolin Aerosols) 2.5 mg INHALATION Q2H PRN PRN PRN Reason: SHORTNESS OF BREATH Aspirin (Ecotrin) 81 mg PO DAILY@0800 [facility] Last Admin: 08/11/17 08:40 Dose: 81 mg Atorvastatin Calcium (Lipitor) 40 mg PO QHS [facility] Last Admin: 08/10/17 20:42 Dose: 40 mg Bisacodyl (Dulcolax) 10 mg RECTAL DAILY PRN PRN PRN Reason: Constipation Carvedilol (Coreg) 6.25 mg PO BID [facility] Last Admin: 08/11/17 08:36 Dose: 6.25 mg Enoxaparin Sodium (Lovenox) 40 mg SC DAILY@0600 [facility] Last Admin: 08/11/17 06:48 Dose: 40 mg Escitalopram Oxalate (Lexapro) 5 mg PO DAILY [facility] Last Admin: 08/11/17 08:40 Dose: 5 mg Famotidine (Pepcid) 20 mg PO BID [facility] Last Admin: 08/11/17 08:36 Dose: 20 mg Folic Acid (Folic Acid) 1 mg PO DAILY@0800 [facility] Last Admin: 08/11/17 08:37 Dose: 1 mg Losartan Potassium (Cozaar) 25 mg PO DAILY [facility] Last Admin: 08/11/17 08:36 Dose: 25 mg Magnesium Hydroxide (Milk Of Magnesia) 30 ml PO .PRN X 1 PRN PRN Reason: Constipation Mirtazapine (Remeron) 15 mg PO QHS [facility] Last Admin: 08/10/17 20:41 Dose: 15 mg Multivitamins/Minerals (Multivitamin With Minerals) [facility] Last Admin: 08/11/17 08:38 Dose: 1 tablet Nicotine (Nicoderm Cq (Pbkc)) 21 mg TRANSDERM. DAILY [facility] Last Admin: 08/11/17 08:40 Dose: 21 mg Nutritional Formula (Lactose Free) (Ensure Enlive) 120 ml PO 4X/DAY [facility] Last Admin: 08/11/17 08:37 Dose: 120 ml Oxycodone HCl (Oxyir) 5 mg PO Q4H PRN PRN PRN Reason: SEVERE PAIN (6-10/10) Last Admin: 08/10/17 08:39 Dose: 5 mg Potassium Phos/Sodium Phos (Neutra-Phos Packet) [facility] Last Admin: 08/11/17 08:36 Dose: 1 packet Senna (Senokot) 2 tablet PO BID [facility] Last Admin: 08/11/17 08:42 Dose: Not Given Thiamine HCl (Vitamin B1) 100 mg PO DAILYCM [facility] Last Admin: 08/11/17 08:38 Dose: 100 mg Medical Necessity - Tobacco Use Smoking Status: Current every day smoker Tobacco Use: Cigarettes Assessment/Plan Impression: Debility status post right hip fracture status post open reduction internal fixation performed 07/25/[address] Gifford. Goal of therapy is anabaptist of her prior functional independence. Her balance and dizziness is likely due to malnutrition due to her chronic alcohol use which she is now abstaining from and will continue to do so. Plan: - Physical therapy for gait and balance - Occupational Therapy for ADLs - Speech therapy for cognition - Continue alcohol abstention - As needed analgesics - continue Oxy IR, will d/c the fentanyl patch, and re- assess again later today. 08/09/17: Nursing staff indicates pain is controlled, she has been refusing her [place]. - Bowel protocol - DVT prophylaxis: Lovenox - Right hip incision - The upper incision has 11 susan, with mild Serous drainage noted, the incision is well approximated, no redness or warmth noted. the small incision has 6 susan is C/D/I. 08/09/17: Her susan are out. Healing well. Dr. Gifford evaluated her earlier today. - Depression -> started Lexapro at bedtime, has been excessively tired, since starting it will decrease dose to 5 mg.
[2017-08-11] MEDS: oxyCODONE 5 MG Tablet PO ×2 (13:51→22:05)
[2017-08-11 21:21] VITALS: BP 145/72; PULSE 95; RESP 14; TEMP 36.5; O2SAT 94
[2017-08-11] MEDS: Mirtazapine 15 MG Tablet PO (21:25)
[2017-08-11] MEDS: Atorvastatin Calcium 40 MG Tablet PO (21:25)
[2017-08-12] MEDS: Enoxaparin 40 MG/0.4 ML Syringe SC (06:01)
[2017-08-12] MEDS: Acetaminophen 500 MG Tablet 1000 MG PO ×2 (06:01→12:56)
[2017-08-12 07:24] VITALS: BP 139/72; PULSE 79; RESP 16; TEMP 36.5; O2SAT 97
[2017-08-12] MEDS: Multivitamins,Ther W-Minerals Tablet 1 TABLET PO (08:37)
[2017-08-12] MEDS: Folic Acid 1 MG Tablet PO (08:37)
[2017-08-12] MEDS: Thiamine Hydrochloride 100 MG Tablet PO (08:37)
[2017-08-12] MEDS: Carvedilol 6.25 MG Tablet PO (08:38)
[2017-08-12] MEDS: Famotidine 20 MG Tablet PO (08:38)
[2017-08-12] MEDS: Escitalopram Oxalate 10 MG Tablet 5 MG PO (08:38)
[2017-08-12] MEDS: Losartan Potassium 25 MG Tablet PO (08:38)
[2017-08-12] MEDS: Aspirin E.C. 81 MG Tablet PO (08:39)
[2017-08-12] MEDS: Na Biphos/Potassium Phosphate PACKET 1 PACKET PO ×2 (08:39→12:56)
--- NOTE | 2017-08-12 09:10 | PCM.RU.DC ---
Rehab Discharge Summary DATE OF ADMISSION: 07/29/17 DATE OF DISCHARGE: 08/12/17 - Rehab Diagnosis Right Hip Fracture Discharge Diet: No Restrictions Discharge Activity: May Not Drive, May not drive while taking narcotic pain medications., May Shower, Use Walker, - - Do not soak in a Tub Bath until cleared by your Surgeon Weight Bearing Status: Weight bearing as tolerated Call your doctor if your incision/area has: Increased Pain/ Swelling, Increased Redness, Foul Smelling Discharge, Swelling at the incision site Call your doctor if you observe: Fever of 101 or Higher, Coldness, Increased Pain, Numbness or Tingling, Change in Color, Inability to urinate, Inability to have a bowel movement, Using more than one pad per hour, Shortness of breath, Dizziness, Fainting spells, Swelling in the ankles, Chest pain, Prolonged hiccoughing, Increased palpitations (irregular heartbeat), Calf discomfort, Uncontrolled pain Home Medications: Medications to take at Discharge Acetaminophen [Tylenol] 1,000 mg PO TID 07/29/17 Albuterol Aerosols [Ventolin Aerosols] 2.5 mg INHALATION Q2H PRN PRN vial.neb. 07/29/17 Aspirin E.C. [Ecotrin] 81 mg PO BIDCM 07/29/17 Multivitamins,Ther W-Minerals [Multivitamin With Minerals] 1 tablet PO DAILYCM 07/29/17 Atorvastatin Calcium [Lipitor] 40 mg PO QHS #30 tab 08/12/17 Carvedilol [Coreg (Beta Sophia)] 6.25 mg PO BID #30 tab 08/12/17 Famotidine [Pepcid] 20 mg PO BID #30 tab 08/12/17 Folic Acid 1 mg PO DAILY@0800 #30 tab 08/12/17 Losartan Potassium [Cozaar] 25 mg PO DAILY #30 tab 08/12/17 Mirtazapine [Remeron] 15 mg PO QHS #30 tab 08/12/17 Na Biphos/Potassium Phosphate [Neutra-Phos Packet] 1 packet PO 4X/DAYCM #60 packet 08/12/17 Oxycodone [Oxyir] 5 mg PO Q4H PRN PRN 6 Days #36 tab 08/12/17 Thiamine Hydrochloride [Vitamin B1] 100 mg PO DAILYCM #30 tab 08/12/17 Following Prescrptions Were Given to Patient: Oxycodone [Oxyir] 5 mg PO Q4H PRN PRN 6 Days #36 tab PRN Reason: Severe Pain (-01/04) Atorvastatin Calcium [Lipitor] 40 mg PO QHS #30 tab Folic Acid 1 mg PO DAILY@0800 #30 tab Losartan Potassium [Cozaar] 25 mg PO DAILY #30 tab Mirtazapine [Remeron] 15 mg PO QHS #30 tab Thiamine Hydrochloride [Vitamin B1] 100 mg PO DAILYCM #30 tab Carvedilol [Coreg (Beta Sophia)] 6.25 mg PO BID #30 tab Famotidine [Pepcid] 20 mg PO BID #30 tab Na Biphos/Potassium Phosphate [Neutra-Phos Packet] 1 packet PO 4X/DAYCM #60 packet Primary Care Physician: Jose Peterson MD [Primary Care Provider] - Please Follow Up With: Dr. Gifford Please Follow Up With: Dr. Peterson Please Follow Up With: Henry Bhat MD Disposition: Home - with outpatient Physical therapy Minutes spent on discharge:: 40 Patient Condition:: Good Rehab Course The patient is a 67 year old female with a history of balance trouble and alcohol dependence who lost her balance and fell at home are trying to arise from her toilet due to dizziness, resulting in a right hip fracture. She presented to the hospital on 07/25/17 and had a open reduction and internal fixation performed that day by Dr. Gifford. Her postoperative course was uneventful and she now presents to the rehab unit debilitation in order to improve her functional status so that she can return home. She lives at home with her son in a two-story house. Far she is tolerating her stay in the rehab unit with good control of her pain, no insomnia, and no GI or complaints. She has not drank any alcohol for approximately 1 week now and feels that she is doing well. In the hospital she was also diagnosed with protein calorie malnutrition. She also has a history of coronary artery disease. With Physical therapy, she is supervision for bed mobility, getting in and out of the bed. She is stand by assist for going from a sitting to a standing position. She is able to walk 165 feet with a walker at standby assist. She is contact guard for going up and down a flight of stairs. Her TUG score is 23 seconds, and her sit to stand or Chair raises score is 9 in 30 seconds, week it was 4 in 30 seconds. With Occupational therapy, she is supervision for her personal care except for her socks she requires some assistance. To get in and out of a Tub bath she is stand by assist. She is supervision for getting on ad off the toileting. With Nursing, her pain has decreased and is pretty well managed with the current medications. The plan is discharge on August 12 with outpatient Physical therapy, and all her follow up appointments. Meaningful Use Info Meaningful Use Diagnoses (Choose all that apply): None applicable
--- NOTE | 2017-08-12 09:33 | PCM.DC ---
- Discharge Diagnoses Reason(s) for Visit for Discharge Instructions: Right Hip Fracture You will use the following diet at home:: Regular Your food should be the consistency of: Regular Your liquids should be the consistency of: Regular/Thin Discharge Activity: May Not Drive, May not drive while taking narcotic pain medications., May Shower, Use Walker, - - Do not soak in a Tub Bath until cleared by your Surgeon Weight Bearing Status: Weight bearing as tolerated Call your doctor if your incision/area has: Increased Pain/ Swelling, Increased Redness, Foul Smelling Discharge, Swelling at the incision site Call your doctor if you observe: Fever of 101 or Higher, Coldness, Increased Pain, Numbness or Tingling, Change in Color, Inability to urinate, Inability to have a bowel movement, Using more than one pad per hour, Shortness of breath, Dizziness, Fainting spells, Swelling in the ankles, Chest pain, Prolonged hiccoughing, Increased palpitations (irregular heartbeat), Calf discomfort, Uncontrolled pain Allergies/Adverse Reactions: Allergies No Known Allergies Allergy (Verified 07/23/17 19:08) Medications to take at Discharge Acetaminophen [Tylenol] 1,000 mg PO TID 07/29/17 Albuterol Aerosols [Ventolin Aerosols] 2.5 mg INHALATION Q2H PRN PRN vial.neb. 07/29/17 Aspirin E.C. [Ecotrin] 81 mg PO BIDCM 07/29/17 Multivitamins,Ther W-Minerals [Multivitamin With Minerals] 1 tablet PO DAILYCM 07/29/17 Atorvastatin Calcium [Lipitor] 40 mg PO QHS #30 tab 08/12/17 Carvedilol [Coreg (Beta Sophia)] 6.25 mg PO BID #30 tab 08/12/17 Famotidine [Pepcid] 20 mg PO BID #30 tab 08/12/17 Folic Acid 1 mg PO DAILY@0800 #30 tab 08/12/17 Losartan Potassium [Cozaar] 25 mg PO DAILY #30 tab 08/12/17 Mirtazapine [Remeron] 15 mg PO QHS #30 tab 08/12/17 Na Biphos/Potassium Phosphate [Neutra-Phos Packet] 1 packet PO 4X/DAYCM #60 packet 08/12/17 Oxycodone [Oxyir] 5 mg PO Q4H PRN PRN 6 Days #36 tab 08/12/17 Thiamine Hydrochloride [Vitamin B1] 100 mg PO DAILYCM #30 tab 08/12/17 The following prescriptions were given: Oxycodone [Oxyir] 5 mg PO Q4H PRN PRN 6 Days #36 tab PRN Reason: Severe Pain (-01/04) Atorvastatin Calcium [Lipitor] 40 mg PO QHS #30 tab Folic Acid 1 mg PO DAILY@0800 #30 tab Losartan Potassium [Cozaar] 25 mg PO DAILY #30 tab Mirtazapine [Remeron] 15 mg PO QHS #30 tab Thiamine Hydrochloride [Vitamin B1] 100 mg PO DAILYCM #30 tab Carvedilol [Coreg (Beta Sophia)] 6.25 mg PO BID #30 tab Famotidine [Pepcid] 20 mg PO BID #30 tab Na Biphos/Potassium Phosphate [Neutra-Phos Packet] 1 packet PO 4X/DAYCM #60 packet Primary Care Physician: Jose Peterson MD [Primary Care Provider] - Please Follow Up With: Dr. Gifford Please Follow Up With: Dr. Peterson Please Follow Up With: Henry Bhat MD Proposed Discharge Date: 08/12/17
[2017-08-12 09:35] VITALS: BP 139/72; PULSE 79; RESP 16; TEMP 36.5; O2SAT 97
--- NOTE | 2017-08-12 16:38 | NURSING ---
Went over dc instructions, medications and appts. pt verbalized understanding denies questions, pt had all personal belongings upon discharge, pt in stable condition
== END 2017-08-12 16:42 | disposition home or self-care (01) | DRG 559 ==
PROVIDERS: Admitting Provider Psychiatry & Neurology Neurology; Family Provider Family Medicine; PCP Family Medicine; Visit Provider Internal Medicine
DX: S72.141D Displaced intertrochanteric fracture of right femur, subsequent encounter for closed fracture with routine healing (principal); E43 Unspecified severe protein-calorie malnutrition; W18.11XD Fall from or off toilet without subsequent striking against object, subsequent encounter; I25.10 Atherosclerotic heart disease of native coronary artery without angina pectoris; Z68.21 Body mass index [BMI] 21.0-21.9, adult; Z95.5 Presence of coronary angioplasty implant and graft; F10.20 Alcohol dependence, uncomplicated; Z79.899 Other long term (current) drug therapy; Z79.82 Long term (current) use of aspirin; F17.210 Nicotine dependence, cigarettes, uncomplicated; R13.10 Dysphagia, unspecified; Z86.73 Personal history of transient ischemic attack (TIA), and cerebral infarction without residual deficits; F32.9 Major depressive disorder, single episode, unspecified; E78.5 Hyperlipidemia, unspecified; I10 Essential (primary) hypertension
CPT/HCPCS: 36415; 73502; 80053; 83735; 84100; 85027; 92526; 97110; 97116; 97162; 97166; 97530; 97535; 97802; 99406

== ENCOUNTER → 2017-09-12 14:18 | Outpatient (CLI) | payer MEDICARE, OTHER, SELFPAY ==
--- NOTE | 2017-09-12 14:21 | RAD_ITS ---
STUDY: X-RAY - PELVIS AND RIGHT HIP REASON FOR EXAM: Female, 67 years old. fx/surgical follow up TECHNIQUE: Radiological exam, hip, unilateral, with pelvis when performed; 2 or 3 views. COMPARISON: 11/07/2017 FINDINGS: There is a non-specific bowel gas pattern. Normal visualized soft tissue structures. There is metallic hardware noted in the right hip. There are atherosclerotic vascular calcifications. Degenerative findings in the lumbar spine. Stool throughout the colon. Normal bilateral iliac wings, sacroiliac joints and visualized sacrum. Normal bilateral superior and inferior pubic rami. Normal pubic symphysis. Normal bilateral ischial tuberosities. Normal visualized femoral head. Normal acetabulum. Normal hip joint. RAD/Hip 2-3 Views with Pelvis IMPRESSION: There is metallic hardware noted in the right hip. Hardware appears intact. Alignment is unchanged. Obstipation Electronically Signed: Zane Bowser MD at 20:03 EDT , Service support ,
== END ==
PROVIDERS: Family Provider Family Medicine; PCP Family Medicine; Visit Provider Orthopaedic Surgery
DX: M25.551 Pain in right hip (principal)
CPT/HCPCS: 73502

== ENCOUNTER → 2017-09-22 14:15 | Outpatient (CLI) | payer MEDICARE, OTHER, SELFPAY ==
[2017-09-22 15:33] LABS: Hematocrit 45.3 % (37-47); Hemoglobin 14.6 g/dl (12.0-15.0); Mean Corp Hgb Conc 32.2 g/gl (32-36); Mean Corpuscular Hgb 34.7 pg (27.0-32.0); Mean Corpuscular Volume 107.6 fL (81-99); Mean Platelet Vol. 10.8 fl (6.2-12.0); Platelet Count 238 K/mm3 (150-450); RBC Distribution Width CV 13.4 % (11.6-14.6); RBC Distribution Width SD 52.8 fl (35.1-43.9); Red Blood Count 4.21 M/mm3 (4.2-5.4)
[2017-09-22 15:35] LABS: Scan Indicated on CBC? Y/N NO
[2017-09-22 16:35] LABS: ALB/GLOB Ratio 0.9 RATIO (0.9-2.4); AST(SGOT) 20 U/L (15-37); Alanine Aminotransfer ALT/SGPT 19 U/L (13-56); Albumin, Serum 3.7 g/dL (3.2-5.0); Alkaline Phosphatase 98 U/L (45-117); Anion Gap 8 (5-15); BUN 12 mg/dL (7-18); BUN/Creat Ratio 20.9 RATIO (10-20); Calcium,Total 9.5 mg/dL (8.5-10.1); Chloride 101 mmol/L (98-107); Creatinine, Serum 0.57 mg/dL (0.55-1.02); EST Glomerular Filtration Rate 112 mL/min (>60); Est Glom Filt Rate - Afr Amer 135 mL/min (>60); Globulin 4.2 g/dL (2.2-4.2); Glucose 89 mg/dL (74-106); Phosphorus 3.7 mg/dL (2.5-4.9); Potassium 4.4 mmol/L (3.5-5.1); Protein, Total 7.9 g/dL (6.4-8.2); Sodium Level 135 mmol/L (136-145)
[2017-09-23 05:20] LABS: Rapid Plasmin Reagin (RPR) NONREACTIVE (NONREACTIVE)
[2017-09-23 08:49] LABS: Vitamin B12 331 pg/mL (211-911); Vitamin D,25 Hydroxy 27.9 ng/mL (29.95-100.01)
[2017-09-25 03:15] LABS: Rheumatoid Factor < 10.0 IU/mL (<15)
[2017-09-27 12:07] LABS: Lyme IgG P18 Ab Absent (.); Lyme IgG P23 Ab Absent (.); Lyme IgG P28 Ab Absent (.); Lyme IgG P30 Ab Absent (.); Lyme IgG P39 Ab Absent (.); Lyme IgG P41 Ab Absent (.); Lyme IgG P45 Ab Absent (.); Lyme IgG P58 Ab Absent (.); Lyme IgG P66 Ab Absent (.); Lyme IgG P93 Ab Absent (.); Lyme IgM P23 Ab Present (.); Lyme IgM P39 Ab Absent (.); Lyme IgM P41 Ab Absent (.)
[2017-09-30 12:27] LABS: Anti-Nuclear Antibody Test Negative (.)
[2017-09-30 12:28] LABS: Arsenic 7245 7 ug/L (2-23); Copper, Serum or Plasma 135 ug/dL (72-166); Lead, Blood 6 ug/dL (0-19); Lyme IgG WB Interpretation Negative (.); Lyme IgM WB Interpretation Negative (.); Zinc, Plasma or Serum 64 ug/dL (56-134)
== END ==
PROVIDERS: Family Provider Family Medicine; PCP Family Medicine; Visit Provider Nurse Practitioner Acute Care
DX: R20.0 Anesthesia of skin (principal); R20.2 Paresthesia of skin; R41.3 Other amnesia; E55.9 Vitamin D deficiency, unspecified
CPT/HCPCS: 36415; 80053; 82175; 82306; 82525; 82607; 82746; 83655; 83735; 83825; 84100; 84630; 85027; 86038; 86431; 86592; 86617; 86762

== ENCOUNTER → 2017-10-10 14:44 | Outpatient (CLI) | payer MEDICARE, OTHER, SELFPAY ==
--- NOTE | 2017-10-10 14:47 | CT_ITS ---
STUDY: CT LUMBAR SPINE WITHOUT CONTRAST REASON FOR EXAM: Female, 67 years old. RADICULOPATHY, LUMBAR PAIN, BILAT LEG PAIN RADIATION DOSAGE (If Supplied By Facility): CTDIvol = ( 18.94 ) mGy, DLP = ( 672.12 ) mGycm TECHNIQUE: The patient was scanned in a multi detector CT scanner. High resolution transaxial imaging was performed. Sagittal and coronal images were reconstructed. Individualized dose optimization techniques were used for this CT. COMPARISON: None FINDINGS: Normal lumbar lordosis. There is no substantial scoliosis. Normal vertebrae of the lumbar spine. Superior endplate compression deformity of T12. Appears old. L1-2: Severe bilateral neural foraminal stenosis. Compression of the exiting bilateral L1 nerve roots. Loss of intervertebral disc height. There is bilateral facet arthropathy. There is bilateral ligamentum flavum thickening. No spinal stenosis. Narrowing of the lateral recesses. Posterior disc bulge. L2-3: Severe bilateral neural foraminal stenosis. Compression of the exiting bilateral L2 nerve roots. Loss of intervertebral disc height. There is bilateral facet arthropathy. There is bilateral ligamentum flavum thickening. Mild spinal stenosis. Narrowing of the lateral recesses. Posterior disc bulge. Superior endplate compression deformity of L3 appears old. L3-4: Severe bilateral neural foraminal stenosis. Compression of the exiting bilateral L3 nerve roots. Loss of intervertebral disc height. There is bilateral facet arthropathy. There is bilateral ligamentum flavum thickening. Mild spinal stenosis. Narrowing of the lateral recesses. Posterior disc bulge. L4-5: Severe bilateral neural foraminal stenosis. Compression of the exiting bilateral L4 nerve roots. Loss of intervertebral disc height. There is bilateral facet arthropathy. There is bilateral ligamentum flavum thickening. Mild spinal stenosis. Narrowing of the lateral recesses. Posterior disc bulge. L5-S1: Loss of intervertebral disc height at L5-S1. Vacuum disc phenomenon at L5-S1. There is endplate spondylosis of the vertebral body. Severe bilateral neural foraminal stenosis. Compression of the exiting bilateral L5 nerve roots. Loss of intervertebral disc height. There is bilateral facet arthropathy. There is bilateral ligamentum flavum thickening. Mild spinal stenosis. Narrowing of the lateral recesses. Normal visualized paraspinous soft tissue structures. CT/Spine Lumbar without Contrast IMPRESSION: Multilevel degenerative changes, as described above. Superior endplate compression deformity of T12. Appears old. Electronically Signed: Zane Bowser MD at 23:20 EDT , Service support ,
== END ==
PROVIDERS: Family Provider Family Medicine; PCP Family Medicine; Visit Provider Nurse Practitioner Acute Care
DX: M54.16 Radiculopathy, lumbar region (principal); G14 Postpolio syndrome
CPT/HCPCS: 72131

== ENCOUNTER 2017-10-18 13:00 | Outpatient (RCR) | payer MEDICARE, OTHER, SELFPAY ==
--- NOTE | 2017-09-20 15:03 | HP.PTEVAL_ITS ---
Patient's Visit Information DEMETRI PRADHAN is a 67 year old F referred to Physical Therapy by Mert Gifford DO with a diagnosis of R IT Fx. Date of Evaluation: 09/20/17 Physical Therapist: Zoe Raya - Visit Plan Frequency: 2x /Week Duration: 4 Weeks Plan: 2X/ week for 4 weeks then reaseess for gait training, hip and knee strengthenin, some light neutral spine core strengthening, possible heel lift with HEP. - Subjective Subjective: Pt fell back in June and went to the ER and they surgical fixed it and the pt then stayed on the rehab floor for 3 weeks. Her PCP is Dr Peterson. and Dr Peterson referred her to Dr Haddad for her back and legs. 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 Pt has had a lot of problems with back and legs and he is seeing Dr Haddad this . She is currently on a walker and is staying on the walker due to back and Both leg pain and back of the thighs. Pt is back home. She has stairs at home with a railing and she goes up the steps with the strong leg first and weaker leg second. She is finding that she is occ trying to go up the normal way. No falls since the fall. SHe is back to driving and getting groceries and that does wipe her out. She does not use the walker at home only time she uses it is in public with a long distance. She has to push self to get out of a chair. She just had screws placed in her hip. PT does use a can depending on the situation. - Pain R hip pain Pain Intensity (Out of 10): 3 - Objective LE MMT: R hip flex 4-/5, L hip flex 4/5, R hip abd 4-/5 and L 4/5, Able to do 3/ 4 ROM Bridge, R knee flex 3+/5 (increase pain with resisted motion and tender to palpation), L knee flex 4/5, R knee ext 4/5 and L knee ext 4/5. Pt is able to heel and toe raise about 1/2 normal ROM. Gait: Pt walks with R knee bent and decreased heel to toe gait pattern which could be contributing to her increased posterior knee pain. Had pt walk with heel strike and extended knee at heel strike and she had less knee pain. Palpation: Teder R HS insertion. R hip flex 115 degrees flexion and L hip flex 122 degrees. Full R and L knee flexion AROM. Pt's L LE is shorter than the R LE. - Goals Goal 1:: I HEP Goal Time Frame: 4-6 Weeks - Rehabilitation Potential Rehabilitation Potential: Good - Anticipated Interventions Patient/Client Instruction: Educate patient on: Condition, Plan of Care For the Purpose of:: To decrease pain, To increase ROM, To improve nutrient delivery to tissue, To improve muscle performance and motor function, To improve ability to perform ADL's, To increase tolerance to activity/condition/ position, To improve performance and independence with ADL's, To decrease level of supervision to perform tasks, To improve ability of physical actions for home /community/work/leisure, To improve gait and locomotor functions, To improve health of tissue, To decrease soft tissue restriction, To increase flexibility/ ROM, To improve balance, To improve safety with gait Therapeutic Exercise to Include: Strength training, Endurance training, Balance training, Flexibilty training, Gait and locomotor training, Neuromotor development, Active ROM, Dynamic Lumbar Stabilization For the Purpose of:: To decrease pain, To increase ROM, To improve nutrient delivery to tissue, To improve muscle performance and motor function, To improve ability to perform ADL's, To increase tolerance to activity/condition/ position, To improve ability of physical actions for home/community/work/leisure , To improve gait and locomotor functions, To improve balance Functional Training to Include: Gait training For the Purpose of:: To improve gait and locomotor functions Thank you for the opportunity to evaluate your patient. For Medicare and Medicare HMO plans, please review the plan of care and approve it. It will need to be FAXED BACK to us at [phone] for Medicare purposes. Please let me know if there are questions or concerns regarding this plan of care. Physician Signature: Date:
--- NOTE | 2017-12-07 17:47 | HP.PTDCNRP_ITS ---
HP - Discharge Summary (1) - Patient Information DEMETRI PRADHAN was seen in my office for initial evaluation on 09/20/17. The following Plan of Care was established for this patient: Initial Frequency: 2x /Week Initial Duration: 4 Weeks - Anticipated Interventions Patient/Client Instruction: Educate patient on: Condition, Plan of Care For the Purpose of:: To decrease pain, To increase ROM, To improve nutrient delivery to tissue, To improve muscle performance and motor function, To improve ability to perform ADL's, To increase tolerance to activity/condition/ position, To improve performance and independence with ADL's, To decrease level of supervision to perform tasks, To improve ability of physical actions for home /community/work/leisure, To improve gait and locomotor functions, To improve health of tissue, To decrease soft tissue restriction, To increase flexibility/ ROM, To improve balance, To improve safety with gait Therapeutic Exercise to Include: Strength training, Endurance training, Balance training, Flexibilty training, Gait and locomotor training, Neuromotor development, Active ROM, Dynamic Lumbar Stabilization For the Purpose of:: To decrease pain, To increase ROM, To improve nutrient delivery to tissue, To improve muscle performance and motor function, To improve ability to perform ADL's, To increase tolerance to activity/condition/ position, To improve ability of physical actions for home/community/work/leisure , To improve gait and locomotor functions, To improve balance Functional Training to Include: Gait training For the Purpose of:: To improve gait and locomotor functions This patient was last seen in our office 08/17/17. Pertinent comments regarding their Physical therapy will appear below: [facility] PT At this point I will be discontinuing this patient from physical therapy. I would be happy to see this patient again in the future if found appropriate by the physician. Thank you! Zoe Raya
== END 2017-10-18 19:00 | disposition home or self-care (01) ==
LOC: PT 13:00
PROVIDERS: Family Provider Family Medicine; PCP Family Medicine; Visit Provider Orthopaedic Surgery
DX: S72.141D Displaced intertrochanteric fracture of right femur, subsequent encounter for closed fracture with routine healing (principal)
CPT/HCPCS: 97110; 97162

== ENCOUNTER → 2017-11-04 09:31 | Outpatient (CLI) | payer MEDICARE, OTHER, SELFPAY ==
--- NOTE | 2017-11-04 09:33 | RAD_ITS ---
STUDY: X-RAY - PELVIS AND RIGHT HIP REASON FOR EXAM: Female, 67 years old. Pain, surgery TECHNIQUE: Radiological exam, hip, unilateral, with pelvis when performed; 2 or 3 views. COMPARISON: 09/12/2017 FINDINGS: There is fixation at the proximal right femur. The hip joint spaces are well-maintained. The symphysis pubis and SI joints appear essentially intact. There is no acute fracture. There is no osseous destruction. Arterial calcification. RAD/HIP, UNI W/ Pelvis 2-3 Views IMPRESSION: ORIF, proximal right femur, intact Electronically Signed: Tom Madrid MD at 8:08 EDT Tel , Service support ,
== END ==
PROVIDERS: Family Provider Family Medicine; PCP Family Medicine; Visit Provider Orthopaedic Surgery
DX: M25.551 Pain in right hip (principal)
CPT/HCPCS: 73502